=== PATIENT | male | born 1940 ===

== ENCOUNTER 2016-07-28 13:55 | Inpatient (IN) | payer MEDICARE, OTHER ==
[2016-07-28 13:58] VITALS: BMI 35.4
[2016-07-28] MEDS ORDERED: Sodium Chloride 0.9% 500 ML IV ONE (14:22)
[2016-07-28] MEDS ORDERED: Sodium Chloride 0.9% 1,000 ML ONE (14:29)
[2016-07-28 14:39] LABS: LYMPH # 0.7 K/uL (1.0-4.3); MEAN CORPUSCULAR HEMOGLOBIN 29.6 pg (27.0-31.0); MONO # 0.6 K/uL (0.0-0.8)
[2016-07-28 14:44] LABS: BASO % 0.4 % (0.0-2.0); EOS # 0.1 K/uL (0.0-0.7); EOS % 1.9 % (0.0-4.0); HEMATOCRIT 40.7 % (35.0-51.0); LYMPH % 9.5 % (20.0-40.0); MEAN CELL VOLUME 89.9 fL (80.0-94.0); MEAN PLATELET VOLUME 10.3 fL (7.2-11.7); MONO % 7.9 % (0.0-10.0); NRBC % 0.2 % (0.0-2.0); RED CELL DISTRIBUTION WIDTH 17.8 % (11.5-14.5); WHITE BLOOD COUNT 7.8 K/uL (4.8-10.8)
[2016-07-28 14:45] LABS: PLATELET COUNT 84 K/uL (130-400)
[2016-07-28 14:47] LABS: INR 1.1
[2016-07-28 14:53] LABS: RBC URINE 1864 /hpf (0-3); URINE BACTERIA RARE (<OCC); URINE BILIRUBIN NEGATIVE (NEGATIVE); URINE BLOOD 3+ (NEGATIVE); URINE COLOR Amber (YELLOW); URINE GLUCOSE (UA) 3+ mg/dL (Normal); URINE KETONE NEGATIVE (NEGATIVE); URINE LEUKOCYTE ESTERASE NEG Leu/uL (Negative); URINE PROTEIN 2+ mg/dL (NEGATIVE); URINE UROBILINOGEN NORMAL mg/dL (0.2-1.0); WBC URINE 10 /hpf (0-5)
[2016-07-28 14:55] LABS: POTASSIUM 4.7 mmol/L (3.6-5.2)
[2016-07-28 14:57] LABS: BILIRUBIN,TOTAL 1.2 mg/dL (0.2-1.3); TOTAL PROTEIN 6.5 g/dL (6.3-8.3)
[2016-07-28 15:18] LABS: TROPONIN I 0.04 ng/mL (0.00-0.120)
[2016-07-28 15:43] LABS: EOSINOPHIL 1 % (0-4); NEUTROPHIL 85 % (50-75); TOTAL CELLS COUNTED 100
--- NOTE | 2016-07-28 15:48 | CT ---
PROCEDURE: CT HEAD WITHOUT CONTRAST. HISTORY: Dizzy COMPARISON: None available. TECHNIQUE: Axial computed tomography images were obtained through the head/brain without intravenous contrast. Radiation dose: Total exam DLP = 788 mGy-cm. This CT exam was performed using one or more of the following dose reduction techniques: Automated exposure control, adjustment of the mA and/or kV according to patient size, and/or use of iterative reconstruction technique. FINDINGS: HEMORRHAGE: No intracranial hemorrhage. BRAIN: No mass effect or edema. No atrophy or chronic microvascular ischemic changes. VENTRICLES: Unremarkable. No hydrocephalus. CALVARIUM: Unremarkable. PARANASAL SINUSES: Unremarkable as visualized. No significant inflammatory changes. MASTOID AIR CELLS: Unremarkable as visualized. No inflammatory changes. OTHER FINDINGS: None. IMPRESSION: No intracranial hemorrhage.
--- NOTE | 2016-07-28 16:34 | CT ---
PROCEDURE: CT Abdomen and Pelvis without intravenous contrast HISTORY: Hematuria COMPARISON: None. TECHNIQUE: Technique. Contrast Dose: Radiation dose: Total exam DLP = 1153 mGy-cm. This CT exam was performed using one or more of the following dose reduction techniques: Automated exposure control, adjustment of the mA and/or kV according to patient size, and/or use of iterative reconstruction technique. FINDINGS: LOWER THORAX: Unremarkable. LIVER: Unremarkable. No gross lesion or ductal dilatation. GALLBLADDER AND BILE DUCTS: Unremarkable. PANCREAS: Unremarkable. No gross lesion or ductal dilatation. SPLEEN: Unremarkable. ADRENALS: Unremarkable. No mass. KIDNEYS AND URETERS: Unremarkable. No hydronephrosis. No solid mass. VASCULATURE: Unremarkable. No aortic aneurysm. BOWEL: Unremarkable. No obstruction. No gross mural thickening. APPENDIX: Unremarkable. Normal appendix. PERITONEUM: Unremarkable. No free fluid. No free air. LYMPH NODES: Unremarkable. No enlarged lymph nodes. BLADDER: Unremarkable. REPRODUCTIVE: Unremarkable. BONES: No acute fracture. OTHER FINDINGS: None. IMPRESSION: Unremarkable non contrast enhanced CT of the abdomen and pelvis.
--- NOTE | 2016-07-28 16:42 | C.PDOC ---
Time Seen by Provider: 07/28/16 14:09 Chief Complaint (Nursing): Dizziness/Lightheaded History Per: Patient, Family Onset/Duration Of Symptoms: Days Current Symptoms Are (Timing): Still Present Associated Symptoms Preceding Syncopal Episode: Lightheadedness Seizure Or Post-ictal Symptoms: None Possible Causative Factor(s): Decreased PO Intake (?) Fall Associated With With Symptoms: No Severity: Moderate Additional History Per: Prior Records - Symptoms Of CVA Recent Head Trauma: No Past Medical History Reviewed: Historical Data, Nursing Documentation, Vital Signs Vital Signs: Last Vital Signs Temp 98.1 F 07/28/16 13:59 Pulse 89 07/28/16 13:59 Resp 20 07/28/16 13:59 BP 113/80 07/28/16 13:59 Pulse Ox 97 07/28/16 13:59 - Medical History PMH: Bronchitis, HTN, Hypercholesterolemia, Chronic Kidney Disease Surgical History: CABG (1996(@[facility])), Cholecystectomy - [facility] Procedures COLONOSCOPY (11/06/11) DRAINAGE OF LEFT MIDDLE EAR WITH DRAIN DEV, OPEN APPROACH (03/03/16) OTHER ENDOSCOPY OF SM INTEST (10/16/11) Family History: States: Unknown Family Hx - Social History Hx Tobacco Use: No Hx Alcohol Use: No (stopped yrs ago) Hx Substance Use: No - Immunization History Hx Tetanus Toxoid Vaccination: Yes Hx Influenza Vaccination: Yes Hx Pneumococcal Vaccination: Yes Review Of Systems Except As Marked, All Systems Reviewed And Found Negative. Constitutional: Positive for: Malaise. Negative for: Fever Cardiovascular: Negative for: Chest Pain Respiratory: Negative for: Shortness of Breath Gastrointestinal: Positive for: Nausea, Abdominal Pain. Negative for: Vomiting , Diarrhea, Melena, Hematochezia, Hematemesis Genitourinary: Positive for: Frequency. Negative for: Scrotal Pain Musculoskeletal: Positive for: Leg Pain (b/l). Negative for: Neck Pain, Back Pain Skin: Positive for: Bruising Neurological: Positive for: Dizziness. Negative for: Weakness, Numbness, Seizures, Altered Mental Status, Headache Physical Exam - Physical Exam Appears: No Acute Distress, Chronically Ill Skin: Normal Color, Warm, Dry Head: Atraumatic, Normacephalic Eye(s): bilateral: PERRL, EOMI Neck: Normal ROM, Supple Cardiovascular: Rhythm Regular Respiratory: Normal Breath Sounds, No Accessory Muscle Use Gastrointestinal/Abdominal: Soft, Tenderness (mild epigastric), No Guarding, No Rebound Back: No CVA Tenderness Extremity: Normal ROM, No Pedal Edema Neurological/Psych: Oriented x3, Normal Speech, No Cerebellar Signs, Normal Motor, Normal Sensation ED Course And Treatment - Laboratory Results Result Diagrams: 07/28/16 14:35 07/28/16 14:35 Lab Interpretation: Abnormal Interpretation Of Abnormal: Thrombocytopenia. Hematuria. Worsening renal function. ECG: Interpreted By Me, Viewed By Me ECG Rhythm: Sinus Rhythm, Nonspecific Changes Rate From EC O2 Sat by Pulse Oximetry: 97 Pulse Ox Interpretation: Normal - CT Scan/US CT head Other Rad Studies (CT/US): Read By Radiologist, Radiology Report Reviewed CT/US Interpretation: IMPRESSION: No intracranial hemorrhage. CT abd/pelv Other Rad Studies (CT/US): Read By Radiologist, Radiology Report Reviewed CT/US Interpretation: IMPRESSION: Unremarkable non contrast enhanced CT of the abdomen and pelvis. Progress - Interventions Interventions:: Observation, Intravenous fluid - Data Reviewed Data Reviewed: Lab, Diagnostic imaging, EKG, Old records - Patient Status Patient status: Partially improved - Continuity of Care Discussed patient case with:: Patient, Family-HIPPA compliant, ED Nurse, PMD - Patient Plan Patient Plan: Admission Disposition Discussed With : Ricky Peralta Comment: He accepted pt on his service. Doctor Will See Patient In The: Hospital Counseled Patient/Family Regarding: Studies Performed, Diagnosis - Disposition Disposition: HOSPITALIZED Disposition Time: 16:45 Condition: FAIR Instructions: Weakness (ED) - POA Present On Arrival: Poor Glycemic Control - Clinical Impression Clinical Impression: Generalized weakness, Dizziness, Worsening renal function, Hematuria, Thrombocytopenia
[2016-07-28] MEDS: (Novolog) Insulin Aspart, Recombinant 100 u/ml 10 ml vial SC SCH (22:37)
[2016-07-29 08:19] LABS: BASO % 0.4 % (0.0-2.0); EOS # 0.2 K/uL (0.0-0.7); HEMATOCRIT 36.3 % (35.0-51.0); LYMPH # 1.2 K/uL (1.0-4.3); LYMPH % 19.8 % (20.0-40.0); MEAN CELL VOLUME 90.5 fL (80.0-94.0); MEAN CORPUSCULAR HEMOGLOBIN 29.8 pg (27.0-31.0); MEAN CORPUSCULAR HGB CONC 32.9 g/dL (33.0-37.0); MEAN PLATELET VOLUME 10.6 fL (7.2-11.7); MONO # 0.6 K/uL (0.0-0.8); MONO % 10.4 % (0.0-10.0); RED CELL DISTRIBUTION WIDTH 17.6 % (11.5-14.5)
[2016-07-29] MEDS: (Novolog) Insulin Aspart, Recombinant 100 u/ml 10 ml vial SC SCH ×4 (08:29→22:15)
[2016-07-29 08:39] LABS: POTASSIUM 4.6 mmol/L (3.6-5.2)
[2016-07-29 08:42] LABS: CALCIUM 7.7 mg/dl (8.6-10.4); TOTAL PROTEIN 5.8 g/dL (6.3-8.3)
--- NOTE | 2016-07-29 10:43 | CP.PCM.PN ---
Subjective - Date & Time of Evaluation Date of Evaluation: 07/29/16 Time of Evaluation: 09:00 - Subjective Subjective: PGY2 on medicine Dr. Peralta service: Pt seen and examined at bedside this morning. Pt said he is still feeling weak but no other complaints at this time. Tolerating PO diet. No acute events overnight per RN. Objective - Vital Signs/Intake and Output Vital Signs (last 24 hours): Temp Pulse Resp BP Pulse Ox 99.4 F 92 H 20 126/72 96 07/29/16 00:00 07/29/16 00:00 07/29/16 00:00 07/29/16 09:19 07/29/16 00:00 Intake and Output: 07/29/16 07/29/16 06:59 18:59 Intake Total 300 Balance 300 - Medications Medications: Current Medications Carvedilol (Coreg) 25 mg PO BID [facility] Last Admin: 07/29/16 09:19 Dose: 25 mg Clopidogrel Bisulfate (Plavix) 75 mg PO DAILY [facility] Last Admin: 07/29/16 09:21 Dose: 75 mg Doxazosin Mesylate (Cardura) 4 mg PO DAILY [facility] Last Admin: 07/29/16 09:18 Dose: 4 mg Famotidine (Pepcid) 20 mg PO DAILY [facility] Last Admin: 07/29/16 09:20 Dose: 20 mg Gabapentin (Neurontin) 600 mg PO DAILY [facility] Last Admin: 07/29/16 09:20 Dose: 600 mg Insulin Aspart (Novolog) 0 unit SC [facility] PRN Reason: Protocol Insulin Glargine (Lantus) 15 unit SC [facility] Prednisone (Prednisone Tab) 30 mg PO DAILY [facility] Stop: 07/31/16 23:00 Prednisone (Prednisone Tab) 10 mg PO DAILY [facility] Stop: 08/03/16 23:00 - Labs Labs: 07/29/16 08:11 07/29/16 08:11 PT 12.7 SECONDS (9.7-12.2) H 07/28/16 14:35 INR 1.1 07/28/16 14:35 APTT 29 SECONDS (21-34) 07/28/16 14:35 - Constitutional Appears: Non-toxic, No Acute Distress - Head Exam Head Exam: NORMAL INSPECTION, NORMOCEPHALIC - Eye Exam Eye Exam: Normal appearance Pupil Exam: NORMAL ACCOMODATION - Respiratory Exam Respiratory Exam: Clear to Ausculation Bilateral, NORMAL BREATHING PATTERN. absent: Rhonchi, Wheezes - Cardiovascular Exam Cardiovascular Exam: REGULAR RHYTHM, +S1, +S2. absent: Gallop, Rubs - GI/Abdominal Exam GI & Abdominal Exam: Soft, Normal Bowel Sounds - Neurological Exam Neurological Exam: Alert, Awake, Oriented x3 Assessment and Plan - Assessment and Plan (Free Text) Assessment: Acute on chronic kidney injuries BUN and Cr 49 and 4.4 Pt has hx of brief dialysis in the past. Nephro Dr. Santos consulted, help appreciated. Prednisone taper, 20mg tomorrow and Wednesday, and 10mg Wednesday and Wednesday. F/U ESR and CRP. Hematuria See above. Weakness Head and abdomen CT negative. Hx of CAD Coreg 25mg PO daily. Plavix 75mg PO daily. Cardura 4mg PO daily Crestor 5mg PO HS. Cozaar 50mg PO daily. DM Home Actos stopped. Start Lantus 15U SC HS. RISS, accuchecks. Neurontin 600mg PO daily. Prophylactic measure SCD, Pepcid. PT eval. Management as per Dr. Peralta
--- NOTE | 2016-07-29 17:19 | CP.PCM.CON ---
History of Present Illness - History of Present Illness History of Present Illness: 76 y/o male with Hx/o CKD, CAD/CABG, DM, HTN ,HLD is aditted for weakness & dizziness. Renal consult is requested for evaluation of CKD Pt was admitted @ [facility] in Apr 2016. His creat on that adm was 3.0 Hx is obtained from Pt & family. Pt is followed by [employer] [facility] in [place] & at one time had required dialysis transiently Pt gives Hx/o kidney dis in several family members Past Patient History - Past Medical History & Family History Past Medical History?: Yes - Past Social History Smoking Status: Former Smoker - CARDIAC Hx Hypercholesterolemia: Yes Hx Hypertension: Yes - PULMONARY Hx Bronchitis: Yes - NEUROLOGICAL Hx Paralysis: No Other/Comment: neuropathy - HEENT Hx Cataracts: Yes (B/L x 5 yrs ago) Other/Comment: chronic L ear pain - RENAL Hx Chronic Kidney Disease: Yes - ENDOCRINE/METABOLIC Hx Endocrine Disorders: Yes Hx Diabetes Mellitus Type 2: Yes - HEMATOLOGICAL/ONCOLOGICAL Hx Blood Disorders: Yes Hx Anemia: Yes - INTEGUMENTARY Hx Dermatological Problems: Yes Other/Comment: vetiligo both hands,christofer. elbows,both shins - MUSCULOSKELETAL/RHEUMATOLOGICAL Hx Musculoskeletal Disorders: Yes Hx Falls: No - GASTROINTESTINAL Hx Gastrointestinal Disorders: Yes Hx Gall Bladder Disease: Yes Hx Ulcer: Yes - PSYCHIATRIC Hx Substance Use: No - SURGICAL HISTORY Hx Cataract Extraction: Yes (5 yrs) Hx Cholecystectomy: Yes Hx Coronary Artery Bypass Graft: Yes (1996(@[facility] - ANESTHESIA Hx Anesthesia: Yes Hx Anesthesia Reactions: No Hx Malignant Hyperthermia: No Meds Allergies/Adverse Reactions: Allergies Allergy/AdvReac Type Severity Reaction Status Date / Time chicken derived AdvReac VOMITING Verified 03/03/16 22:07 - Medications Medications: Current Medications Carvedilol (Coreg) 25 mg PO BID [facility] Last Admin: 07/29/16 09:19 Dose: 25 mg Clopidogrel Bisulfate (Plavix) 75 mg PO DAILY [facility] Last Admin: 07/29/16 09:21 Dose: 75 mg Doxazosin Mesylate (Cardura) 4 mg PO DAILY [facility] Last Admin: 07/29/16 09:18 Dose: 4 mg Famotidine (Pepcid) 20 mg PO DAILY [facility] Last Admin: 07/29/16 09:20 Dose: 20 mg Gabapentin (Neurontin) 600 mg PO DAILY [facility] Last Admin: 07/29/16 09:20 Dose: 600 mg Insulin Aspart (Novolog) 0 unit SC [facility] PRN Reason: Protocol Last Admin: 07/29/16 11:36 Dose: 8 unit Insulin Glargine (Lantus) 15 unit SC [facility] Prednisone (Prednisone Tab) 30 mg PO DAILY [facility] Stop: 07/31/16 23:00 Prednisone (Prednisone Tab) 10 mg PO DAILY [facility] Stop: 08/03/16 23:00 Physical Exam - Constitutional Appears: No Acute Distress - Head Exam Head Exam: ATRAUMATIC, NORMOCEPHALIC - Eye Exam Additional comments: No icterus - ENT Exam ENT Exam: Mucous Membranes Moist - Respiratory Exam Additional comments: Lungs clear - Cardiovascular Exam Cardiovascular Exam: REGULAR RHYTHM Additional comments: No rub or gallop - GI/Abdominal Exam GI & Abdominal Exam: Soft Additional comments: Subjective mid abdominal tenderness. No guarding - Rectal Exam Rectal Exam: Deferred - Extremities Exam Additional comments: No edema or cyanosis Results - Vital Signs Recent Vital Signs: Last Vital Signs Temp 97.6 F 07/29/16 15:00 Pulse 68 07/29/16 15:00 Resp 20 07/29/16 15:00 BP 151/89 H 07/29/16 15:00 Pulse Ox 96 07/29/16 15:00 - Labs Result Diagrams: 07/29/16 08:11 07/29/16 08:11 Labs: Laboratory Results - last 24 hr 07/28/16 07/28/16 07/29/16 18:37 21:09 07:12 WBC RBC Hgb Hct MCV MCH MCHC RDW Plt Count MPV Neut % (Auto) Lymph % (Auto) [place] % (Auto) Eos % (Auto) Baso % (Auto) Neut # Lymph # [place] # Eos # Baso # ESR Sodium Potassium Chloride Carbon Dioxide Anion Gap BUN Creatinine Est GFR ( Amer) Est GFR (Non-Af Amer) POC Glucose (mg/dL) 222 H 253 H 254 H Random Glucose Calcium Total Bilirubin AST ALT Alkaline Phosphatase C-React Prot High Sens Total Protein Albumin Globulin Albumin/Globulin Ratio 07/29/16 07/29/16 07/29/16 08:11 08:11 11:13 WBC 6.0 RBC 4.01 L Hgb 12.0 Hct 36.3 MCV 90.5 MCH 29.8 MCHC 32.9 L RDW 17.6 H Plt Count 80 L MPV 10.6 Neut % (Auto) 66.4 Lymph % (Auto) 19.8 L [place] % (Auto) 10.4 H Eos % (Auto) 3.0 Baso % (Auto) 0.4 Neut # 4.0 Lymph # 1.2 [place] # 0.6 Eos # 0.2 Baso # 0.0 ESR 40 H Sodium 134 Potassium 4.6 Chloride 107 Carbon Dioxide 18 L Anion Gap 14 BUN 49 H Creatinine 4.4 H Est GFR ( Amer) 16 Est GFR (Non-Af Amer) 13 POC Glucose (mg/dL) 330 H Random Glucose 223 H Calcium 7.7 L Total Bilirubin 1.0 AST 18 ALT 11 L D Alkaline Phosphatase 61 C-React Prot High Sens Total Protein 5.8 L Albumin 2.9 L Globulin 3.0 Albumin/Globulin Ratio 1.0 07/29/16 07/29/16 13:45 16:03 WBC RBC Hgb Hct MCV MCH MCHC RDW Plt Count MPV Neut % (Auto) Lymph % (Auto) [place] % (Auto) Eos % (Auto) Baso % (Auto) Neut # Lymph # [place] # Eos # Baso # ESR Sodium Potassium Chloride Carbon Dioxide Anion Gap BUN Creatinine Est GFR ( Amer) Est GFR (Non-Af Amer) POC Glucose (mg/dL) 331 H Random Glucose Calcium Total Bilirubin AST ALT Alkaline Phosphatase C-React Prot High Sens > 15.00 H Total Protein Albumin Globulin Albumin/Globulin Ratio Assessment & Plan - Assessment and Plan (Free Text) Assessment: Acute on chronic renal failure. Etiology unclear at this time. No documentation of hypotensive episode Hematuria HTN CAD DM Plan: Repeat UA Urine prot/creat Renal US Monitor urine output
--- NOTE | 2016-07-29 19:07 | US ---
PROCEDURE: Ultrasound of the Kidneys HISTORY: CKD COMPARISON: None available. TECHNIQUE: Sonogram of the kidneys. FINDINGS: RIGHT KIDNEY: Measures: 5.3 x 11.1 cm. Normal in size, contour and echogenicity. No stone, solid mass lesion or hydronephrosis visualized. LEFT KIDNEY: Measures: 5.9 x 11.7 cm. Normal in size, contour and echogenicity. No stone, solid mass lesion or hydronephrosis visualized. OTHER FINDINGS: None. IMPRESSION: Unremarkable renal sonogram.
[2016-07-29] MEDS ORDERED: (Lantus) Insulin Glargine, Recombinant SC SCH (22:00)
--- NOTE | 2016-07-30 07:03 | HP ---
A 76-year-old male, history of diabetes, hypertension, coronary artery disease, chronic renal failure , admitted to hospital chief complaint ____ fatigue, tiredness, weakness, leg pain, failure to thrive . The patient came to the Emergency Room ____ BUN and creatinine ____ at his baseline. ____ worseni ng renal failure. PHYSICAL EXAMINATION: GENERAL: The patient IS awake, alert, oriented. VITAL SIGNS: Temperature 98, pulse 90. HEENT: Within normal limits. NECK: Supple. CHEST: Symmetrical. HEART: Regular. ABDOMEN: Soft. EXTREMITIES: No edema. Patient ____ renal failure worsening, diabetes, hypertension, coronary artery disease, ____, possible temporal arteritis. The patient gets supportive care. Renal evaluation, insulin adjustment for iván betes uncontrolled. Ricky Rosa MD cc: [id number] TT: 07/29/2016 11:51:07 07/29/2016 13:25:05
[2016-07-30 08:02] LABS: BASO % 0.2 % (0.0-2.0); HEMATOCRIT 37.5 % (35.0-51.0); LYMPH # 0.8 K/uL (1.0-4.3); LYMPH % 9.2 % (20.0-40.0); MEAN CELL VOLUME 90.8 fL (80.0-94.0); MEAN CORPUSCULAR HEMOGLOBIN 29.5 pg (27.0-31.0); MEAN CORPUSCULAR HGB CONC 32.5 g/dL (33.0-37.0); MEAN PLATELET VOLUME 10.5 fL (7.2-11.7); MONO # 0.5 K/uL (0.0-0.8); MONO % 5.8 % (0.0-10.0); PLATELET COUNT 83 K/uL (130-400); RED CELL DISTRIBUTION WIDTH 17.2 % (11.5-14.5); WHITE BLOOD COUNT 8.6 K/uL (4.8-10.8)
[2016-07-30 08:08] LABS: RBC URINE 8 /hpf (0-3); URINE BACTERIA OCC (<OCC); URINE BILIRUBIN NEGATIVE (NEGATIVE); URINE BLOOD 2+ (NEGATIVE); URINE COLOR Straw (YELLOW); URINE GLUCOSE (UA) 3+ mg/dL (Normal); URINE KETONE NEGATIVE (NEGATIVE); URINE LEUKOCYTE ESTERASE NEG Leu/uL (Negative); URINE PROTEIN NEGATIVE (NEGATIVE); URINE UROBILINOGEN NORMAL mg/dL (0.2-1.0); WBC URINE 3 /hpf (0-5)
[2016-07-30] MEDS: (Novolog) Insulin Aspart, Recombinant 100 u/ml 10 ml vial SC SCH ×3 (08:08→21:26)
[2016-07-30 08:15] LABS: BILIRUBIN,TOTAL 0.6 mg/dL (0.2-1.3); CALCIUM 8.1 mg/dl (8.6-10.4); TOTAL PROTEIN 6.2 g/dL (6.3-8.3)
[2016-07-30 08:34] LABS: POTASSIUM 5.7 mmol/L (3.6-5.2)
[2016-07-30 09:27] LABS: NEUTROPHIL 93 % (50-75); TOTAL CELLS COUNTED 100
[2016-07-30] MEDS ORDERED: Sod Polystyrene Sulf 15 gm/60 ml Oral Susp PO ONE (09:30)
[2016-07-30 09:35] LABS: CREATININE, RANDOM URINE 48.9 mg/dL
--- NOTE | 2016-07-30 10:28 | CP.PCM.PN ---
Subjective - Date & Time of Evaluation Date of Evaluation: 07/30/16 Time of Evaluation: 09:00 - Subjective Subjective: PGY2 on medicine Dr. Peralta service: Pt seen and examined at bedside this morning. Pt reports feeling stronger but had watery diarrhea twice overnight. Pt also complains bilateral ear pain. No other acute events overnight per RN. Objective - Vital Signs/Intake and Output Vital Signs (last 24 hours): Temp Pulse Resp BP Pulse Ox 97 F L 72 20 158/78 H 97 07/30/16 07:55 07/30/16 07:55 07/30/16 07:55 07/30/16 10:06 07/30/16 07:55 Intake and Output: 07/30/16 07/30/16 06:59 18:59 Intake Total 400 Balance 400 - Medications Medications: Current Medications Carvedilol (Coreg) 25 mg PO BID [facility] Last Admin: 07/30/16 10:06 Dose: 25 mg Clopidogrel Bisulfate (Plavix) 75 mg PO DAILY [facility] Last Admin: 07/30/16 10:07 Dose: 75 mg Doxazosin Mesylate (Cardura) 4 mg PO DAILY [facility] Last Admin: 07/30/16 10:09 Dose: 4 mg Famotidine (Pepcid) 20 mg PO DAILY [facility] Last Admin: 07/30/16 10:07 Dose: 20 mg Gabapentin (Neurontin) 600 mg PO DAILY [facility] Last Admin: 07/30/16 10:06 Dose: 600 mg Insulin Aspart (Novolog) 0 unit SC [facility] PRN Reason: Protocol Last Admin: 07/30/16 08:08 Dose: 12 unit Insulin Glargine (Lantus) 20 unit SC [facility] Prednisone (Prednisone Tab) 30 mg PO DAILY [facility] Stop: 07/31/16 23:00 Last Admin: 07/30/16 10:06 Dose: 30 mg Prednisone (Prednisone Tab) 10 mg PO DAILY [facility] Stop: 08/03/16 23:00 - Labs Labs: 07/30/16 07:53 07/30/16 07:53 PT 12.7 SECONDS (9.7-12.2) H 07/28/16 14:35 INR 1.1 07/28/16 14:35 APTT 29 SECONDS (21-34) 07/28/16 14:35 - Constitutional Appears: Non-toxic, No Acute Distress - Head Exam Head Exam: NORMAL INSPECTION, NORMOCEPHALIC - Eye Exam Eye Exam: Normal appearance Pupil Exam: NORMAL ACCOMODATION - Respiratory Exam Respiratory Exam: Clear to Ausculation Bilateral, NORMAL BREATHING PATTERN. absent: Rhonchi, Wheezes - Cardiovascular Exam Cardiovascular Exam: REGULAR RHYTHM, +S1, +S2. absent: Gallop, Rubs - GI/Abdominal Exam GI & Abdominal Exam: Soft, Normal Bowel Sounds. absent: Tenderness - Neurological Exam Neurological Exam: Alert, Awake, Oriented x3 - Psychiatric Exam Psychiatric exam: Normal Mood - Skin Skin Exam: Intact Assessment and Plan - Assessment and Plan (Free Text) Assessment: Acute on chronic kidney injuries Worsening BUN and Cr 61 and 4.4 Pt has hx of brief dialysis in the past. Nephro Dr. Santos consulted, help appreciated. Prednisone taper, 20mg tomorrow and Wednesday, and 10mg Wednesday and Wednesday. Renal ultrasound negative. ESR 40, CRP >15. F/U renal workup. Hematuria See above. Weakness Head and abdomen CT negative. Hx of CAD Coreg 25mg PO daily. Plavix 75mg PO daily. Cardura 4mg PO daily Crestor 5mg PO HS. Cozaar 50mg PO daily. DM Home Actos stopped. Increase Lantus 20U SC HS due to hyperglycemia. RISS, accuchecks. Neurontin 600mg PO daily. Ear pain Pt has history of left mastoiditis, s/p tube placement in 02/2016. Dr. Stark consulted, help appreciated. Prophylactic measure SCD, Pepcid. PT eval. Management as per Dr. Peralta
--- NOTE | 2016-07-30 13:10 | CON ---
DATE: 07/30/2016 REASON FOR CONSULTATION: Hearing loss. HISTORY OF PRESENT ILLNESS: This is a 76-year-old male status post left myringotomy with tube who co mplained of hearing loss off and on in the ears for a few months. It is mild to moderate in intensit y. PAST MEDICAL HISTORY: As noted in the chart by me. MEDICATIONS: As noted in the chart by me. PHYSICAL EXAMINATION: HEAD: Atraumatic, normocephalic. FACE: Good facial movements bilaterally. CONSTITUTIONAL: Well-developed, well-nourished. COMMUNICATION: Communicates very appropriately. EXTERNAL NOSE AND EARS: No masses, no lesions, no erythema, no edema. INTERNAL NOSE: Deviated septum, no masses, no lesions, no erythema, no edema. ORAL CAVITY, OROPHARYNX: No masses, no lesions, no erythema, no edema. LIPS AND GUMS: No masses, no lesions, no erythema, no edema. EARS: Fluid noted behind TMs on both sides. NECK: Supple. THYROID: No thyromegaly, no goiter. LYMPH NODES: No lymphadenopathy of the neck. ASSESSMENT: 1. Otitis media. 2. Deviated septum. PLAN: The patient should be placed on antibiotics as outpatient and follow up as an outpatient in my office. Anderson Stark MD cc: [id number] TT: 07/30/2016 13:10:05 Confirmation # [id number] Dictation # [id number]
[2016-07-30] MEDS: Lactobacillus Acidophilus 500 MU Cap PO SCH ×2 (15:00→18:00)
[2016-07-30] MEDS: Amoxicillin-Clav 875-125 mg Tab PO SCH (17:00)
[2016-07-30] MEDS: (Lantus) Insulin Glargine, Recombinant SC SCH (21:27)
[2016-07-30 23:28] VITALS: RESP 20
[2016-07-31] MEDS: Sodium Chloride 0.9% 1,000 ML IV SCH (00:30)
[2016-07-31 07:11] LABS: BASO % 0.2 % (0.0-2.0); HEMATOCRIT 35.2 % (35.0-51.0); MEAN CELL VOLUME 90.5 fL (80.0-94.0); MEAN CORPUSCULAR HEMOGLOBIN 29.7 pg (27.0-31.0); MEAN CORPUSCULAR HGB CONC 32.8 g/dL (33.0-37.0); MEAN PLATELET VOLUME 10.8 fL (7.2-11.7); MONO # 0.4 K/uL (0.0-0.8); MONO % 4.4 % (0.0-10.0); WHITE BLOOD COUNT 10.1 K/uL (4.8-10.8)
[2016-07-31] MEDS: (Novolog) Insulin Aspart, Recombinant 100 u/ml 10 ml vial SC SCH ×5 (07:30→22:22)
[2016-07-31 07:39] LABS: POTASSIUM 5.7 mmol/L (3.6-5.2)
[2016-07-31 07:40] LABS: ALB/GLOB RATIO 0.9 (1.0-2.1); BILIRUBIN,TOTAL 0.6 mg/dL (0.2-1.3); TOTAL PROTEIN 6.1 g/dL (6.3-8.3)
[2016-07-31 07:41] LABS: CALCIUM 8.3 mg/dl (8.6-10.4)
[2016-07-31] MEDS ORDERED: Sod Polystyrene Sulf 15 gm/60 ml Oral Susp PO ONE ×2 (07:58→10:07)
[2016-07-31] MEDS: Amoxicillin-Clav 875-125 mg Tab PO SCH (08:10)
[2016-07-31 08:15] LABS: CHLORIDE URINE 58 mmol/L (32-290)
--- NOTE | 2016-07-31 09:30 | CP.PCM.PN ---
Subjective - Date & Time of Evaluation Date of Evaluation: 07/31/16 Time of Evaluation: 07:05 - Subjective Subjective: Medicine Note- Dr. Peralta's service Patient was seen and examined at bedside. Patient reports no acute complaints at this time. No events overnight, per nursing. Objective - Vital Signs/Intake and Output Vital Signs (last 24 hours): Temp Pulse Resp BP Pulse Ox 97.9 F 66 20 179/99 H 100 07/31/16 07:55 07/31/16 07:55 07/31/16 07:55 07/31/16 07:55 07/31/16 07:55 Intake and Output: 07/31/16 07/31/16 06:59 18:59 Intake Total 1900 Balance 1900 - Medications Medications: Current Medications Amoxicillin/Clavulanate Potassium (Augmentin 875 Mg-125 Mg Tab) [facility] Last Admin: 07/30/16 17:00 Dose: 1 tab Carvedilol (Coreg) 25 mg PO BID [facility] Last Admin: 07/30/16 17:49 Dose: 25 mg Clopidogrel Bisulfate (Plavix) 75 mg PO DAILY [facility] Last Admin: 07/30/16 10:07 Dose: 75 mg Doxazosin Mesylate (Cardura) 4 mg PO DAILY [facility] Last Admin: 07/30/16 10:09 Dose: 4 mg Famotidine (Pepcid) 20 mg PO DAILY [facility] Last Admin: 07/30/16 10:07 Dose: 20 mg Gabapentin (Neurontin) 600 mg PO DAILY [facility] Last Admin: 07/30/16 10:06 Dose: 600 mg Sodium Chloride (Sodium Chloride 0.9%) 1,000 mls @ 80 mls/hr IV .[id number] [facility] Last Admin: 07/31/16 00:30 Dose: Not Given Insulin Aspart (Novolog) 0 unit SC ACHS [facility] PRN Reason: Protocol Last Admin: 07/30/16 21:26 Dose: 3 unit Insulin Glargine (Lantus) 20 unit SC HS [facility] Last Admin: 07/30/16 21:27 Dose: 20 units Lactobacillus Acidophilus (Bacid Acidophilus) 1 cap PO BID [facility] Last Admin: 07/30/16 18:00 Dose: 1 cap Prednisone (Prednisone Tab) 20 mg PO DAILY [facility] PRN Reason: Taper Stop: 08/04/16 09:59 - Labs Labs: 07/31/16 07:03 07/31/16 07:03 PT 12.7 SECONDS (9.7-12.2) H 07/28/16 14:35 INR 1.1 07/28/16 14:35 APTT 29 SECONDS (21-34) 07/28/16 14:35 - Constitutional Appears: Non-toxic, No Acute Distress - Head Exam Head Exam: ATRAUMATIC, NORMAL INSPECTION, NORMOCEPHALIC - Eye Exam Pupil Exam: NORMAL ACCOMODATION - ENT Exam ENT Exam: Mucous Membranes Moist - Respiratory Exam Respiratory Exam: Clear to Ausculation Bilateral, NORMAL BREATHING PATTERN. absent: Prolonged Expiratory Phase, Rales, Rhonchi, Wheezes - Cardiovascular Exam Cardiovascular Exam: REGULAR RHYTHM, +S1, +S2 - GI/Abdominal Exam GI & Abdominal Exam: Soft, Normal Bowel Sounds. absent: Tenderness, Diminished Bowel Sounds, Hernia, Hypoactive Bowel Sounds - Extremities Exam Extremities Exam: Normal Capillary Refill - Neurological Exam Neurological Exam: Alert, Awake, Oriented x3 - Psychiatric Exam Psychiatric exam: Normal Affect, Normal Mood - Skin Skin Exam: Dry, Intact, Normal Color, Warm Assessment and Plan - Assessment and Plan (Free Text) Assessment: Acute on chronic kidney insufficiency Worsening BUN and Cr 61 and 4.4 Pt has hx of brief dialysis in the past. Nephro Dr. Santos consulted, help appreciated. Prednisone taper, 20mg tomorrow and Wednesday, and 10mg Wednesday and Wednesday. Renal ultrasound negative. ESR 40, CRP >15. Urine Random Sodium- 83 Urine Chloride- 58 Hematuria See above. Weakness Head and abdomen CT negative. Hx of CAD Coreg 25mg PO daily. Plavix 75mg PO daily. Cardura 4mg PO daily Crestor 5mg PO HS. Cozaar 50mg PO daily. DM Home Actos stopped. Increase Lantus 20U SC HS due to hyperglycemia. RISS, accuchecks. Neurontin 600mg PO daily. Otitis Media Pt has history of left mastoiditis, s/p tube placement in 02/2016. Dr. Stark consulted, help appreciated. Continue Augmentin 875-125mg PO Q12h (started on 07/30/16) Started on Lactobacillus 1 cap PO BID Prophylactic measure SCD, Pepcid. PT eval. Management as per Dr. Peralta
[2016-07-31] MEDS: Lactobacillus Acidophilus 500 MU Cap PO SCH ×2 (10:09→17:43)
--- NOTE | 2016-07-31 12:03 | CP.PCM.PN ---
Subjective - Date & Time of Evaluation Date of Evaluation: 07/30/16 Time of Evaluation: 11:00 - Subjective Subjective: Pt was seen yesterdy & evaluated Was unable to write note because computors were down. Came back @ 2 pm. Computors were still down Objective - Vital Signs/Intake and Output Vital Signs (last 24 hours): Temp Pulse Resp BP Pulse Ox 97.9 F 66 20 179/99 H 100 07/31/16 07:55 07/31/16 07:55 07/31/16 07:55 07/31/16 10:01 07/31/16 07:55 Intake and Output: 07/31/16 07/31/16 06:59 18:59 Intake Total 1900 Balance 1900 - Medications Medications: Current Medications Amlodipine Besylate (Norvasc) 5 mg PO DAILY [facility] Last Admin: 07/31/16 11:55 Dose: 5 mg Amoxicillin/Clavulanate Potassium (Augmentin 500 Mg-125 Mg Tab) 1 tab PO Q12H [facility] Carvedilol (Coreg) 25 mg PO BID [facility] Last Admin: 07/31/16 10:01 Dose: 25 mg Clopidogrel Bisulfate (Plavix) 75 mg PO DAILY [facility] Last Admin: 07/31/16 10:02 Dose: 75 mg Doxazosin Mesylate (Cardura) 4 mg PO DAILY [facility] Last Admin: 07/31/16 10:02 Dose: 4 mg Famotidine (Pepcid) 20 mg PO DAILY [facility] Last Admin: 07/31/16 10:09 Dose: 20 mg Gabapentin (Neurontin) 600 mg PO TID [facility] Sodium Chloride (Sodium Chloride 0.9%) 1,000 mls @ 80 mls/hr IV .[id number] [facility] Last Admin: 07/31/16 00:30 Dose: Not Given Insulin Aspart (Novolog) 0 unit SC ACHS [facility] PRN Reason: Protocol Last Admin: 07/31/16 11:52 Dose: 10 unit Insulin Glargine (Lantus) 20 unit SC HS [facility] Last Admin: 07/30/16 21:27 Dose: 20 units Lactobacillus Acidophilus (Bacid Acidophilus) 1 cap PO BID [facility] Last Admin: 07/31/16 10:09 Dose: 1 cap Prednisone (Prednisone Tab) 20 mg PO DAILY [facility] PRN Reason: Taper Stop: 08/04/16 09:59 Last Admin: 07/31/16 10:15 Dose: 20 mg Sodium Bicarbonate (Sodium Bicarbonate Tab) 650 mg PO TID [facility] - Labs Labs: 07/31/16 07:03 07/31/16 07:03 PT 12.7 SECONDS (9.7-12.2) H 07/28/16 14:35 INR 1.1 07/28/16 14:35 APTT 29 SECONDS (21-34) 07/28/16 14:35 - Respiratory Exam Additional comments: Lungs clear - Cardiovascular Exam Cardiovascular Exam: REGULAR RHYTHM - Extremities Exam Additional comments: No edema Assessment and Plan - Assessment and Plan (Free Text) Assessment: CKD stage 1V . with acute excacerbation ma be sec to dehydration Presyncope HTN Plan: Renal US report reviewed. Kidneys are unremarkable Suggest gentle hydration K+ controleed on 07/30/16
--- NOTE | 2016-07-31 12:04 | CP.PCM.PN ---
Subjective - Date & Time of Evaluation Date of Evaluation: 07/31/16 Time of Evaluation: 12:00 - Subjective Subjective: Follow up Nephrology note Assessment NOn oliguric CHARLEE ? hemodynamic due to BP changes, pre-renal. also to r/o ANCA vasculitis considering hematuria, sinusitis/otitis media and renal disease, vague symptoms CKD stage 3/4 ? due to CHARLEE in past with <1 gram proteinuria (baseline cr 2.4- 3.2 since feb 2016) HTN uncontrolled DM with hyperglycemia. on prednisone for concern of temporal arteritis Anemia, thrombocytopenia Mild hyponatremia, hyperkalemia (likely precipitated by hyperglycemia), NAGMA Plan No acute need for renal replacement therapy will start norvasc 5 mg and add sodium bicarb. not on ACEI/ARB due to CHARLEE, hyperkalemia. Glycemic control. d/c IVF once sugar control better low K diet check GN work up with c3/c4, ROBERT/ANCA and as ordered. anemia work up, iron indices, vit d/PTH avoid nephrotoxins/contrast/NSAIDs. dose meds for reduced GFR ~ 20 avoid magnesium based laxatives/fleet enema thank for consult Please call if any Q Dr Ronen Everett [phone] Subjective: doesn't feel good. denies CP/SOB/nausea/vomitting. had blood in urine earlier, now resolved. feels decreased appetite, gen body aches and fatigue. had sinusitis and otitis media hx of DM, HTN x 2006, was on dialysis at that time for short period. he is not aware about cause of kidney disease denies smoking/drugs/etoh Exam: comfortable, not in acute distress BP elevated CVS: s1s2 normal. no murmur Respi: b/l clear vbs+ Abdomen: soft non tender no organomegaly bs+ Ext: no edema skin: vitiligo changes. no rash Psych: pleasant, coperative ; kidney, bladder not palpable work up: sono renal: unremarkable urine pr/cr <1 gram/day with blood RBC+ high glucose Objective - Vital Signs/Intake and Output Vital Signs (last 24 hours): Temp Pulse Resp BP Pulse Ox 97.9 F 66 20 179/99 H 100 07/31/16 07:55 07/31/16 07:55 07/31/16 07:55 07/31/16 10:01 07/31/16 07:55 Intake and Output: 07/31/16 07/31/16 06:59 18:59 Intake Total 1900 Balance 1900 - Medications Medications: Current Medications Amlodipine Besylate (Norvasc) 5 mg PO DAILY [facility] Last Admin: 07/31/16 11:55 Dose: 5 mg Amoxicillin/Clavulanate Potassium (Augmentin 500 Mg-125 Mg Tab) 1 tab PO Q12H [facility] Carvedilol (Coreg) 25 mg PO BID [facility] Last Admin: 07/31/16 10:01 Dose: 25 mg Clopidogrel Bisulfate (Plavix) 75 mg PO DAILY [facility] Last Admin: 07/31/16 10:02 Dose: 75 mg Doxazosin Mesylate (Cardura) 4 mg PO DAILY [facility] Last Admin: 07/31/16 10:02 Dose: 4 mg Famotidine (Pepcid) 20 mg PO DAILY [facility] Last Admin: 07/31/16 10:09 Dose: 20 mg Gabapentin (Neurontin) 600 mg PO TID [facility] Sodium Chloride (Sodium Chloride 0.9%) 1,000 mls @ 80 mls/hr IV .[id number] [facility] Last Admin: 07/31/16 00:30 Dose: Not Given Insulin Aspart (Novolog) 0 unit SC ACHS [facility] PRN Reason: Protocol Last Admin: 07/31/16 11:52 Dose: 10 unit Insulin Glargine (Lantus) 20 unit SC HS [facility] Last Admin: 07/30/16 21:27 Dose: 20 units Lactobacillus Acidophilus (Bacid Acidophilus) 1 cap PO BID [facility] Last Admin: 07/31/16 10:09 Dose: 1 cap Prednisone (Prednisone Tab) 20 mg PO DAILY [facility] PRN Reason: Taper Stop: 08/04/16 09:59 Last Admin: 07/31/16 10:15 Dose: 20 mg Sodium Bicarbonate (Sodium Bicarbonate Tab) 650 mg PO TID [facility] - Labs Labs: 07/31/16 07:03 07/31/16 07:03 PT 12.7 SECONDS (9.7-12.2) H 07/28/16 14:35 INR 1.1 07/28/16 14:35 APTT 29 SECONDS (21-34) 07/28/16 14:35
[2016-07-31 14:28] LABS: IRON 99 ug/dL (49-181)
[2016-07-31 15:33] LABS: FOLATE 9.4 ng/mL
[2016-07-31] MEDS: Amoxicillin-Clav 500-125 mg Tab PO SCH (19:14)
[2016-07-31] MEDS: (Lantus) Insulin Glargine, Recombinant SC SCH ×2 (22:19→22:21)
[2016-08-01] MEDS: Sodium Chloride 0.9% 1,000 ML IV SCH ×2 (00:39→18:00)
[2016-08-01 07:29] LABS: TOTAL PROTEIN, SERUM 5.6 g/dL (6.1-8.1)
[2016-08-01 08:08] LABS: BASO % 0.1 % (0.0-2.0); EOS % 0.3 % (0.0-4.0); HEMATOCRIT 36.2 % (35.0-51.0); LYMPH # 1.1 K/uL (1.0-4.3); LYMPH % 13.7 % (20.0-40.0); MEAN CELL VOLUME 90.5 fL (80.0-94.0); MEAN CORPUSCULAR HEMOGLOBIN 29.8 pg (27.0-31.0); MEAN CORPUSCULAR HGB CONC 32.9 g/dL (33.0-37.0); MEAN PLATELET VOLUME 10.8 fL (7.2-11.7); MONO # 0.4 K/uL (0.0-0.8); MONO % 5.4 % (0.0-10.0); RED CELL DISTRIBUTION WIDTH 17.1 % (11.5-14.5); WHITE BLOOD COUNT 8.1 K/uL (4.8-10.8)
[2016-08-01 08:27] LABS: POTASSIUM 5.3 mmol/L (3.6-5.2)
[2016-08-01 08:29] LABS: ALB/GLOB RATIO 0.9 (1.0-2.1); BILIRUBIN,TOTAL 0.6 mg/dL (0.2-1.3)
[2016-08-01 08:30] LABS: CALCIUM 8.5 mg/dl (8.6-10.4)
[2016-08-01] MEDS: (Novolog) Insulin Aspart, Recombinant 100 u/ml 10 ml vial SC SCH ×4 (08:35→21:43)
[2016-08-01] MEDS: Amoxicillin-Clav 500-125 mg Tab PO SCH ×2 (08:38→20:45)
[2016-08-01] MEDS: Lactobacillus Acidophilus 500 MU Cap PO SCH ×2 (10:00→17:41)
--- NOTE | 2016-08-01 13:36 | CP.PCM.PN ---
Subjective - Date & Time of Evaluation Date of Evaluation: 08/01/16 Time of Evaluation: 12:00 - Subjective Subjective: feels good no n/v Objective - Vital Signs/Intake and Output Vital Signs (last 24 hours): Temp Pulse Resp BP Pulse Ox 97.5 F L 63 20 174/88 H 95 08/01/16 08:09 08/01/16 08:09 08/01/16 08:09 08/01/16 10:00 08/01/16 08:09 Intake and Output: 08/01/16 08/01/16 06:59 18:59 Intake Total 1580 Balance 1580 - Medications Medications: Current Medications Amlodipine Besylate (Norvasc) 5 mg PO DAILY [facility] Last Admin: 08/01/16 10:01 Dose: 5 mg Amoxicillin/Clavulanate Potassium (Augmentin 500 Mg-125 Mg Tab) 1 tab PO Q12H [facility] Last Admin: 08/01/16 08:38 Dose: 1 tab Carvedilol (Coreg) 25 mg PO BID [facility] Last Admin: 08/01/16 10:00 Dose: 25 mg Clopidogrel Bisulfate (Plavix) 75 mg PO DAILY [facility] Last Admin: 08/01/16 09:59 Dose: 75 mg Doxazosin Mesylate (Cardura) 4 mg PO DAILY [facility] Last Admin: 08/01/16 10:01 Dose: 4 mg Famotidine (Pepcid) 20 mg PO DAILY [facility] Last Admin: 08/01/16 10:00 Dose: 20 mg Gabapentin (Neurontin) 600 mg PO TID [facility] Last Admin: 08/01/16 10:10 Dose: 600 mg Sodium Chloride (Sodium Chloride 0.9%) 1,000 mls @ 80 mls/hr IV .[id number] [facility] Last Admin: 08/01/16 00:39 Dose: 80 mls/hr Insulin Aspart (Novolog) 0 unit SC ACHS [facility] PRN Reason: Protocol Last Admin: 08/01/16 12:58 Dose: 6 unit Insulin Glargine (Lantus) 30 unit SC HS [facility] Last Admin: 07/31/16 22:21 Dose: 30 units Lactobacillus Acidophilus (Bacid Acidophilus) 1 cap PO BID [facility] Last Admin: 08/01/16 10:00 Dose: 1 cap Prednisone (Prednisone Tab) 20 mg PO DAILY [facility] PRN Reason: Taper Stop: 08/04/16 09:59 Last Admin: 08/01/16 10:00 Dose: 20 mg Sodium Bicarbonate (Sodium Bicarbonate Tab) 650 mg PO TID [facility] Last Admin: 08/01/16 09:59 Dose: 650 mg - Labs Labs: 08/01/16 07:46 08/01/16 07:46 PT 12.7 SECONDS (9.7-12.2) H 07/28/16 14:35 INR 1.1 07/28/16 14:35 APTT 29 SECONDS (21-34) 07/28/16 14:35 - Constitutional Appears: Non-toxic - Head Exam Head Exam: ATRAUMATIC - Eye Exam Eye Exam: Normal appearance - ENT Exam ENT Exam: Normal Exam - Neck Exam Neck Exam: Normal Inspection - Respiratory Exam Respiratory Exam: NORMAL BREATHING PATTERN - Cardiovascular Exam Cardiovascular Exam: +S1, +S2 - GI/Abdominal Exam GI & Abdominal Exam: Normal Bowel Sounds - Extremities Exam Additional comments: no edema - Neurological Exam Neurological Exam: Alert, Oriented x3 - Psychiatric Exam Psychiatric exam: Normal Affect - Skin Skin Exam: Normal Color Assessment and Plan - Assessment and Plan (Free Text) Assessment: Assessment ARF/CKD/ HTN/ Otitis media/DM/ Hyperkalemia/ Acidosis/ Plan -continue to monitor renal function it is improving today. Has microscopic hematuria and less than 1 gram of protein. GN serologies sent. -has significant b/l disease requiring HD in past though etiology is not clear at this time -continue current antihypertensives -will monitor k -monitor hco3 can d/c suppllement if continues to improve -dm per primary
[2016-08-01] MEDS: (Lantus) Insulin Glargine, Recombinant SC SCH (21:42)
[2016-08-02 08:07] LABS: BASO % 0.3 % (0.0-2.0); EOS # 0.1 K/uL (0.0-0.7); EOS % 1.3 % (0.0-4.0); HEMATOCRIT 34.8 % (35.0-51.0); LYMPH # 1.3 K/uL (1.0-4.3); LYMPH % 16.9 % (20.0-40.0); MEAN CELL VOLUME 90.8 fL (80.0-94.0); MEAN CORPUSCULAR HEMOGLOBIN 29.6 pg (27.0-31.0); MEAN CORPUSCULAR HGB CONC 32.6 g/dL (33.0-37.0); MEAN PLATELET VOLUME 10.5 fL (7.2-11.7); MONO # 0.5 K/uL (0.0-0.8); RED CELL DISTRIBUTION WIDTH 17.1 % (11.5-14.5); WHITE BLOOD COUNT 7.8 K/uL (4.8-10.8)
[2016-08-02 08:30] LABS: BILIRUBIN,TOTAL 0.6 mg/dL (0.2-1.3); TOTAL PROTEIN 5.5 g/dL (6.3-8.3)
[2016-08-02] MEDS: Amoxicillin-Clav 500-125 mg Tab PO SCH ×2 (08:55→19:55)
[2016-08-02] MEDS: (Novolog) Insulin Aspart, Recombinant 100 u/ml 10 ml vial SC SCH ×4 (08:56→21:45)
[2016-08-02] MEDS: Lactobacillus Acidophilus 500 MU Cap PO SCH ×2 (10:45→17:53)
[2016-08-02] MEDS: (Lantus) Insulin Glargine, Recombinant SC SCH (21:47)
[2016-08-03] MEDS: (Novolog) Insulin Aspart, Recombinant 100 u/ml 10 ml vial SC SCH ×4 (07:47→22:09)
[2016-08-03] MEDS: Amoxicillin-Clav 500-125 mg Tab PO SCH ×2 (07:47→20:16)
[2016-08-03] MEDS: Lactobacillus Acidophilus 500 MU Cap PO SCH ×2 (10:24→17:36)
--- NOTE | 2016-08-03 12:55 | CP.PCM.PN ---
Subjective - Date & Time of Evaluation Date of Evaluation: 08/03/16 Time of Evaluation: 12:30 - Subjective Subjective: Comfortable in bed No c/o sob Objective - Vital Signs/Intake and Output Vital Signs (last 24 hours): Temp Pulse Resp BP Pulse Ox 98 F 77 20 132/75 97 08/03/16 07:37 08/03/16 07:37 08/03/16 07:37 08/03/16 10:23 08/03/16 07:37 Intake and Output: 08/03/16 08/03/16 06:59 18:59 Intake Total 890 Balance 890 - Medications Medications: Current Medications Amlodipine Besylate (Norvasc) 5 mg PO DAILY [facility] Last Admin: 08/03/16 10:23 Dose: 5 mg Amoxicillin/Clavulanate Potassium (Augmentin 500 Mg-125 Mg Tab) 1 tab PO Q12H [facility] Last Admin: 08/03/16 07:47 Dose: 1 tab Carvedilol (Coreg) 25 mg PO BID [facility] Last Admin: 08/03/16 10:23 Dose: 25 mg Clopidogrel Bisulfate (Plavix) 75 mg PO DAILY [facility] Last Admin: 08/03/16 10:23 Dose: 75 mg Doxazosin Mesylate (Cardura) 4 mg PO DAILY [facility] Last Admin: 08/03/16 10:24 Dose: 4 mg Famotidine (Pepcid) 20 mg PO DAILY [facility] Last Admin: 08/03/16 10:23 Dose: 20 mg Gabapentin (Neurontin) 600 mg PO TID [facility] Last Admin: 08/03/16 10:23 Dose: 600 mg Insulin Aspart (Novolog) 0 unit SC [facility] PRN Reason: Protocol Last Admin: 08/03/16 12:00 Dose: 2 unit Insulin Glargine (Lantus) 30 unit SC HS [facility] Last Admin: 08/02/16 21:47 Dose: 30 units Lactobacillus Acidophilus (Bacid Acidophilus) 1 cap PO BID [facility] Last Admin: 08/03/16 10:24 Dose: 1 cap Prednisone (Prednisone Tab) 10 mg PO DAILY [facility] PRN Reason: Taper Stop: 08/04/16 09:59 Last Admin: 08/03/16 10:23 Dose: 10 mg Sodium Bicarbonate (Sodium Bicarbonate Tab) 650 mg PO TID [facility] Last Admin: 08/03/16 10:24 Dose: 650 mg - Labs Labs: 08/02/16 07:56 08/02/16 07:56 PT 12.7 SECONDS (9.7-12.2) H 07/28/16 14:35 INR 1.1 07/28/16 14:35 APTT 29 SECONDS (21-34) 07/28/16 14:35 - Respiratory Exam Additional comments: Lungs clear - Cardiovascular Exam Cardiovascular Exam: REGULAR RHYTHM - Extremities Exam Additional comments: No edema Assessment and Plan - Assessment and Plan (Free Text) Assessment: Acute in chronic renal failure. Renal function continues to improve. Continue to monitor Plan: Continue to monitor renal function & K+
[2016-08-03] MEDS ORDERED: (Lantus) Insulin Glargine, Recombinant SC SCH (22:00)
--- NOTE | 2016-08-04 07:30 | PN ---
DATE: 08/03/2016 The patient is complaining of weakness, fatigue, unsteady legs. Will order physical therapy, out of bed. Follow up the BUN and creatinine. Ricky Rosa MD cc: [id number] TT: 08/03/2016 15:18:05 Confirmation # [id number] Dictation # [id number] en
[2016-08-04 07:35] VITALS: BP 146/83; PULSE 78; TEMP 97.9; O2SAT 98
[2016-08-04] MEDS: (Novolog) Insulin Aspart, Recombinant 100 u/ml 10 ml vial SC SCH ×2 (07:43→11:37)
[2016-08-04 08:28] LABS: POTASSIUM 4.6 mmol/L (3.6-5.2)
[2016-08-04 08:31] LABS: CALCIUM 7.9 mg/dl (8.6-10.4)
[2016-08-04] MEDS: Lactobacillus Acidophilus 500 MU Cap PO SCH (09:40)
[2016-08-04] MEDS: Amoxicillin-Clav 500-125 mg Tab PO SCH (09:41)
--- NOTE | 2016-08-04 10:19 | VASCLAB ---
STUDY DESCRIPTION: HISTORY: le PAIN PRIORS: None. TECHNIQUE: Pulse volume recording waveforms and segmental pressures of bilateral lower extremities at multiple levels were obtained. Ankle Brachial Indices (ABIs) were calculated. Report prepared by NIKI Obrien, RVT RIGHT LOWER EXTREMITY: * Brachial artery: Pressure - 166 mmHg. * High thigh: Pressure - 220 mmHg: Ratio - NC: PVR waveform - Pulsatile * Low thigh: Pressure - 220 mmHg: Ratio - NC PVR waveform: Pulsatile * Calf: Pressure - 220 mmHg: Ratio - NC PVR waveform: Pulsatile * Posterior tibial Artery: Pressure - 213 mmHg: Ratio - 1028 PVR waveform: Pulsatile * Dorsalis pedis Artery: Pressure - 189 mmHg: Ratio - 1.14 PVR waveform: Pulsatile * Great toe: Pressure - mmHg: Ratio - PVR waveform: Ankle brachial index (JASWANT): 1.28 LEFT LOWER EXTREMITY: * Brachial artery: Pressure - 164 mmHg. * High thigh: Pressure - 220 mmHg: Ratio - NC: PVR waveform - Pulsatile * Low thigh: Pressure - 220 mmHg: Ratio - NC PVR waveform: Pulsatile * Calf: Pressure - 220 mmHg: Ratio - NC PVR waveform: Pulsatile * Posterior tibial Artery: Pressure - 220 mmHg: Ratio - NC PVR waveform: Pulsatile * Dorsalis pedis Artery: Pressure - 209 mmHg: Ratio - 1.26 PVR waveform: Pulsatile * Great toe: Pressure - mmHg: Ratio - PVR waveform: Ankle brachial index (JASWANT): 1.26 OTHER FINDINGS: Right: Left: IMPRESSION: Right: The ankle pressure index of the right lower extremity is non-diagnostic due to possible arterial wall calcifications. Left: The ankle pressure index of the left lower extremity is non-diagnostic due to possible arterial wall calcifications. CT angiogram recommended for better assessment.
[2016-08-04 11:32] LABS: BETA 1 GLOBULIN 0.4 g/dL (0.4-0.6); BETA 2 GLOBULIN 0.4 g/dL (0.2-0.5); GAMMA GLOBULIN 0.8 g/dL (0.8-1.7)
--- NOTE | 2016-08-04 11:37 | CP.PCM.PN ---
Subjective - Date & Time of Evaluation Date of Evaluation: 08/04/16 Time of Evaluation: 10:00 - Subjective Subjective: PGY2 Medicine Note - Dr. Peralta's service: Patient seen and examined at bedside this AM. Patient reports b/l burning foot pain. Patient has no other complaints. Objective - Vital Signs/Intake and Output Vital Signs (last 24 hours): Temp Pulse Resp BP Pulse Ox 97.9 F 78 20 146/83 98 08/04/16 07:33 08/04/16 07:33 08/04/16 07:33 08/04/16 09:41 08/04/16 07:33 Intake and Output: 08/04/16 08/04/16 06:59 18:59 Intake Total 750 Balance 750 - Medications Medications: Current Medications Amlodipine Besylate (Norvasc) 5 mg PO DAILY [facility] Last Admin: 08/04/16 09:41 Dose: 5 mg Amoxicillin/Clavulanate Potassium (Augmentin 500 Mg-125 Mg Tab) 1 tab PO Q12H [facility] Last Admin: 08/04/16 09:41 Dose: 1 tab Carvedilol (Coreg) 25 mg PO BID [facility] Last Admin: 08/04/16 09:41 Dose: 25 mg Clopidogrel Bisulfate (Plavix) 75 mg PO DAILY [facility] Last Admin: 08/04/16 09:40 Dose: 75 mg Doxazosin Mesylate (Cardura) 4 mg PO DAILY [facility] Last Admin: 08/04/16 09:41 Dose: 4 mg Famotidine (Pepcid) 20 mg PO DAILY [facility] Last Admin: 08/04/16 09:43 Dose: 20 mg Gabapentin (Neurontin) 600 mg PO TID [facility] Last Admin: 08/04/16 09:41 Dose: 600 mg Insulin Aspart (Novolog) 0 unit SC [facility] PRN Reason: Protocol Last Admin: 08/04/16 07:43 Dose: 2 unit Insulin Glargine (Lantus) 35 unit SC HS [facility] Last Admin: 08/03/16 22:11 Dose: 35 unit Lactobacillus Acidophilus (Bacid Acidophilus) 1 cap PO BID [facility] Last Admin: 08/04/16 09:40 Dose: 1 cap Sodium Bicarbonate (Sodium Bicarbonate Tab) 650 mg PO TID [facility] Last Admin: 08/04/16 09:41 Dose: 650 mg - Labs Labs: 08/02/16 07:56 08/04/16 08:07 PT 12.7 SECONDS (9.7-12.2) H 07/28/16 14:35 INR 1.1 07/28/16 14:35 APTT 29 SECONDS (21-34) 07/28/16 14:35 - Constitutional Appears: Non-toxic, No Acute Distress - Head Exam Head Exam: NORMAL INSPECTION - Eye Exam Eye Exam: EOMI - ENT Exam ENT Exam: Mucous Membranes Moist - Respiratory Exam Respiratory Exam: Clear to Ausculation Bilateral, NORMAL BREATHING PATTERN. absent: Rales, Rhonchi, Wheezes - Cardiovascular Exam Cardiovascular Exam: REGULAR RHYTHM, +S1, +S2 - GI/Abdominal Exam GI & Abdominal Exam: Soft, Normal Bowel Sounds. absent: Tenderness - Extremities Exam Extremities Exam: Tenderness. absent: Pedal Edema - Neurological Exam Neurological Exam: Alert, Oriented x3 - Psychiatric Exam Psychiatric exam: Normal Affect, Normal Mood - Skin Skin Exam: Normal Color, Warm Assessment and Plan - Assessment and Plan (Free Text) Assessment: Acute on chronic kidney injuries BUN and Cr 49 and 4.4 on Wednesday Cr down to 2.6 today - baseline Pt has hx of brief dialysis in the past. Nephro Dr. Santos consulted, help appreciated. Prednisone taper, 20mg tomorrow and Wednesday, and 10mg Wednesday and Wednesday. ESR 40 CRP>15 Discharge today with home PT Hematuria See above. Augmentin 500-125mg PO Q12H (started 07/31) Given 6 more days on script Weakness Head and abdomen CT negative. Hx of CAD Coreg 25mg PO daily. Plavix 75mg PO daily. Cardura 4mg PO daily Crestor 5mg PO HS. Cozaar 50mg PO daily. DM Home Actos stopped. Start Lantus 15U SC HS. RISS, accuchecks. Neurontin 600mg PO daily. Prophylactic measure SCD, Pepcid. PT eval - recommend TCU v. home with home PT Management as per Dr. Peralta
--- NOTE | 2016-08-04 11:49 | CP.PCM.PN ---
Subjective - Date & Time of Evaluation Date of Evaluation: 08/04/16 Time of Evaluation: 11:47 - Subjective Subjective: pt. is in bed eating lunch feels well no specific complaints Objective - Vital Signs/Intake and Output Vital Signs (last 24 hours): Temp Pulse Resp BP Pulse Ox 97.9 F 78 20 146/83 98 08/04/16 07:33 08/04/16 07:33 08/04/16 07:33 08/04/16 09:41 08/04/16 07:33 Intake and Output: 08/04/16 08/04/16 06:59 18:59 Intake Total 750 Balance 750 - Medications Medications: Current Medications Amlodipine Besylate (Norvasc) 5 mg PO DAILY [facility] Last Admin: 08/04/16 09:41 Dose: 5 mg Amoxicillin/Clavulanate Potassium (Augmentin 500 Mg-125 Mg Tab) 1 tab PO Q12H [facility] Last Admin: 08/04/16 09:41 Dose: 1 tab Carvedilol (Coreg) 25 mg PO BID [facility] Last Admin: 08/04/16 09:41 Dose: 25 mg Clopidogrel Bisulfate (Plavix) 75 mg PO DAILY [facility] Last Admin: 08/04/16 09:40 Dose: 75 mg Doxazosin Mesylate (Cardura) 4 mg PO DAILY [facility] Last Admin: 08/04/16 09:41 Dose: 4 mg Famotidine (Pepcid) 20 mg PO DAILY [facility] Last Admin: 08/04/16 09:43 Dose: 20 mg Gabapentin (Neurontin) 600 mg PO TID [facility] Last Admin: 08/04/16 09:41 Dose: 600 mg Insulin Aspart (Novolog) 0 unit SC ACHS [facility] PRN Reason: Protocol Last Admin: 08/04/16 11:37 Dose: 2 unit Insulin Glargine (Lantus) 35 unit SC HS [facility] Last Admin: 08/03/16 22:11 Dose: 35 unit Lactobacillus Acidophilus (Bacid Acidophilus) 1 cap PO BID [facility] Last Admin: 08/04/16 09:40 Dose: 1 cap Sodium Bicarbonate (Sodium Bicarbonate Tab) 650 mg PO TID [facility] Last Admin: 08/04/16 09:41 Dose: 650 mg - Labs Labs: 08/02/16 07:56 08/04/16 08:07 PT 12.7 SECONDS (9.7-12.2) H 07/28/16 14:35 INR 1.1 07/28/16 14:35 APTT 29 SECONDS (21-34) 07/28/16 14:35 - Constitutional Appears: No Acute Distress - Eye Exam Eye Exam: Normal appearance - ENT Exam ENT Exam: Mucous Membranes Moist - Respiratory Exam Respiratory Exam: NORMAL BREATHING PATTERN. absent: Chest Wall Tenderness, Rales - Cardiovascular Exam Cardiovascular Exam: absent: JVD, Rubs - GI/Abdominal Exam GI & Abdominal Exam: Soft, Normal Bowel Sounds. absent: Guarding - Extremities Exam Extremities Exam: absent: Calf Tenderness - Back Exam Back Exam: absent: CVA tenderness (L), CVA tenderness (R) - Neurological Exam Neurological Exam: Alert Assessment and Plan (1) Acute kidney injury superimposed on CKD Assessment & Plan: kidney function stable perhaps ckd 3? related to DM? with super imposed CHARLEE no significant proteinuria continue monitoring Status: Acute
[2016-08-04 12:20] LABS: BASO % 0.4 % (0.0-2.0); EOS # 0.4 K/uL (0.0-0.7); EOS % 4.1 % (0.0-4.0); HEMATOCRIT 35.4 % (35.0-51.0); LYMPH # 1.5 K/uL (1.0-4.3); LYMPH % 17.3 % (20.0-40.0); MEAN CELL VOLUME 89.3 fL (80.0-94.0); MEAN CORPUSCULAR HEMOGLOBIN 29.6 pg (27.0-31.0); MEAN CORPUSCULAR HGB CONC 33.1 g/dL (33.0-37.0); MEAN PLATELET VOLUME 9.9 fL (7.2-11.7); MONO # 0.6 K/uL (0.0-0.8); MONO % 6.4 % (0.0-10.0); WHITE BLOOD COUNT 8.6 K/uL (4.8-10.8)
[2016-08-04] MEDS ORDERED: Pneumococcal 23-Valent Vaccine IM ONE (12:42)
[2016-08-04 12:55] LABS: POTASSIUM 4.5 mmol/L (3.6-5.2)
[2016-08-04 12:57] LABS: BILIRUBIN,TOTAL 0.5 mg/dL (0.2-1.3); TOTAL PROTEIN 5.8 g/dL (6.3-8.3)
[2016-08-04 12:58] LABS: CALCIUM 8.1 mg/dl (8.6-10.4)
--- NOTE | 2016-08-17 14:34 | CARD ---
APPROVED REPORT EKG Measurement Heart [id number] <Conclusion> Normal sinus rhythm Possible Left atrial enlargement Left ventricular hypertrophy T wave abnormality, consider lateral ischemia Abnormal ECG
--- NOTE | 2016-09-28 11:23 | DS ---
The patient chief complaint renal failure. The patient auscultated in . The patient showing improvement. The patient will have an following up as an outpatient. Ricky Peralta MD
== END 2016-08-04 14:55 | disposition home or self-care (01) | DRG 684 ==
LOC: C.ER 13:55 → C.3T 16:46
PROVIDERS: ADMIT Internal Medicine Pulmonary Disease; ATTEND Internal Medicine Pulmonary Disease
DX: N17.9 Acute kidney failure, unspecified (principal); E11.22 Type 2 diabetes mellitus with diabetic chronic kidney disease; E11.65 Type 2 diabetes mellitus with hyperglycemia; I12.9 Hypertensive chronic kidney disease with stage 1 through stage 4 chronic kidney disease, or unspecified chronic kidney disease; N18.3 Chronic kidney disease, stage 3 (moderate); R62.7 Adult failure to thrive; I25.10 Atherosclerotic heart disease of native coronary artery without angina pectoris; H66.93 Otitis media, unspecified, bilateral; D69.6 Thrombocytopenia, unspecified; R31.9 Hematuria, unspecified; E78.5 Hyperlipidemia, unspecified; Z95.1 Presence of aortocoronary bypass graft; Z90.49 Acquired absence of other specified parts of digestive tract; Z98.49 Cataract extraction status, unspecified eye; Z79.4 Long term (current) use of insulin; J34.2 Deviated nasal septum

== ENCOUNTER 2017-07-14 13:58 | Inpatient (IN) | payer MEDICARE, OTHER ==
[2017-07-14 13:58] VITALS: BMI 33.8
[2017-07-14] MEDS ORDERED: Sodium Chloride 0.9% 1,000 ML IV ONE (14:29)
[2017-07-14 14:55] LABS: VENOUS BLOOD GAS BASE EXCESS -1.5 mmol/L (0.0-2.0); VENOUS BLOOD GAS PCO2 41 mmHg (40-60); VENOUS BLOOD GAS PO2 33 mm/Hg (30-55); VENOUS BLOOD PH 7.37 (7.32-7.43)
[2017-07-14 14:57] LABS: HEMOGLOBIN 12.6 g/dL (12.0-18.0); MEAN CELL VOLUME 91.2 fL (80.0-94.0); MEAN CORPUSCULAR HEMOGLOBIN 30.5 pg (27.0-31.0); MEAN CORPUSCULAR HGB CONC 33.4 g/dL (33.0-37.0); MEAN PLATELET VOLUME 11.1 fL (7.2-11.7); RBC 4.12 Mil/uL (4.40-5.90); RED CELL DISTRIBUTION WIDTH 15.3 % (11.5-14.5)
[2017-07-14 15:00] LABS: PLATELET COUNT 116 K/uL (130-400); WHITE BLOOD COUNT 16.4 K/uL (4.8-10.8)
[2017-07-14 15:10] LABS: ALB/GLOB RATIO 1.1 (1.0-2.1); ALBUMIN 3.3 g/dL (3.5-5.0); CALCIUM 8.9 mg/dl (8.6-10.4)
--- NOTE | 2017-07-14 15:12 | C.PDOC ---
History Of Present Illness 76 y/o male with a history of cardiac dizziness presents to the ED with right sided CP. Patient states it began this morning describing the CP as pressure to the right abdomen. He is complaining of nausea and vomiting. Patient states he felt hot and claims he had a fever but the temperature was never taken. Denies any diarrhea, URI, or cough. PMD: Dr. Ricky Peralta Time Seen by Provider: 07/14/17 14:24 Chief Complaint (Nursing): Medical Clearance History Per: Patient History/Exam Limitations: no limitations Onset/Duration Of Symptoms: Hrs Current Symptoms Are (Timing): Still Present Recent travel outside of the [place]: No Past Medical History Vital Signs: Last Vital Signs Temp 102.3 F H 07/14/17 14:54 Pulse 104 H 07/14/17 14:14 Resp 16 07/14/17 14:14 BP 148/89 07/14/17 14:14 Pulse Ox 97 07/14/17 15:29 - Medical History PMH: Anemia, Bronchitis, Gall Bladder Disease, HTN, Hypercholesterolemia, Chronic Kidney Disease Surgical History: CABG (1996(@[facility] Cholecystectomy Denies: Pacemaker Other Surgeries: cardiac dizziness, quadruple bypass, renal insufficiency - [facility] Procedures COLONOSCOPY (11/06/11) DRAINAGE OF LEFT MIDDLE EAR WITH DRAIN DEV, OPEN APPROACH (03/03/16) OTHER ENDOSCOPY OF SM INTEST (10/16/11) Family History: States: Unknown Family Hx - Social History Hx Tobacco Use: No Hx Alcohol Use: No Hx Substance Use: No - Immunization History Hx Tetanus Toxoid Vaccination: Yes Hx Influenza Vaccination: Yes Hx Pneumococcal Vaccination: Yes Review Of Systems Constitutional: Positive for: Fever, Weakness Cardiovascular: Positive for: Chest Pain Respiratory: Negative for: Cough, Other (URI symptoms) Gastrointestinal: Positive for: Nausea, Vomiting, Abdominal Pain. Negative for : Diarrhea Physical Exam - Physical Exam Appears: Well, No Acute Distress Skin: Normal Color, Warm, Dry Head: Atraumatic, Normacephalic Eye(s): bilateral: Normal Inspection, PERRL, EOMI Nose: Normal Throat: Normal Neck: Normal, Supple Cardiovascular: No Rhythm Regular (febrile tachycardia) Respiratory: Normal Breath Sounds, No Decreased Breath Sounds Gastrointestinal/Abdominal: Normal Exam, Soft, No Tenderness, No Guarding Back: Normal Inspection, No CVA Tenderness, No Vertebral Tenderness Extremity: Normal ROM, No Pedal Edema, No Deformity Neurological/Psych: Oriented x3 ED Course And Treatment - Laboratory Results Result Diagrams: 07/14/17 14:48 07/14/17 14:48 Lab Interpretation: Abnormal (WBC 16.4, BUN 48, Cr 2.7, Glucose 318) ECG: Interpreted By Ri ECG Rhythm: Sinus Tachycardia (with LVH) O2 Sat by Pulse Oximetry: 97 (RA) Pulse Ox Interpretation: Normal - Radiology CXR: Interpreted by Me CXR Interpretation: Yes: Infiltrates (RUL) Reevaluation Time: 15:56 Reassessment Condition: Improved - Physician Consult Information Time Consulting Physician Contacted: 15:56 Physician Contacted: Ricky Peralta Outcome Of Conversation: Patient to be admitted for treatment of CAP. Medical Decision Making Medical Decision Making: Time: 14:14 Impression: CP and fever r/o pneumonia, intra abdomen pathology Initial Plan: * EKG * Chest X-Ray * Tylenol 650 mg PO * IV Fluids * Blood Culture * Urine Culture * Urinalysis Scribe Attestation: Documented by Shannan Fuller acting as a scribe Kiki Rausch MD. Scribe Attestation: All medical record entries made by the Scribe were at my direction and personally dictated by me. I have reviewed the chart and agree that the record accurately reflects my personal performance of the history, physical exam, medical decision making, and the department course for this patient. I have also personally directed, reviewed, and agree with the discharge instructions and disposition. Disposition - Disposition Disposition: HOSPITALIZED Disposition Time: 15:57 Condition: STABLE - POA Present On Arrival: Poor Glycemic Control - Clinical Impression Clinical Impression: Pneumonia
[2017-07-14 15:21] LABS: TROPONIN I 0.057 ng/mL (0.00-0.120)
[2017-07-14] MEDS ORDERED: cefTRIAXone IV 1 gm in Dextros 50 ML IVPB ONE ×2 (15:44→16:05)
[2017-07-14] MEDS ORDERED: Azithromycin 500 MG in Sodium Chloride 0.9% 250 ML IVPB STA (15:45)
[2017-07-14 15:57] LABS: URINE AMORPHOUS SEDIMENT OCC /ul (<OCC); URINE BACTERIA RARE (<OCC); URINE BILIRUBIN NEGATIVE (NEGATIVE); URINE BLOOD 1+ (NEGATIVE); URINE CLARITY Clear (Clear); URINE COLOR Yellow (YELLOW); URINE GLUCOSE (UA) 3+ mg/dL (Normal); URINE LEUKOCYTE ESTERASE NEG Leu/uL (Negative); URINE PROTEIN 2+ mg/dL (NEGATIVE); URINE UROBILINOGEN NORMAL mg/dL (0.2-1.0)
--- NOTE | 2017-07-14 16:18 | CP.PCM.PN ---
Subjective - Date & Time of Evaluation Date of Evaluation: 07/14/17 Time of Evaluation: 16:17 - Subjective Subjective: PGY2 Resident Medicine Note HPI: This 76 y/o male with a PMHx of anemia, bronchitis, HTN, HLD, CKD - presents to the ED c/o SOB for the past 3 days, no cough, but daily yellow sputum production. He reports difficulty getting the sputum out. This morning at 6am, he awoke with a fever of 103F, feeling extremely lethargic. He also became nauseous today, and vomited twice consistent with swallowed mucous ( blood tinged). He has not attempted any OTC medications. He took his carvedilol today and plavix. Patient denies radiating chest pain, dizziness, headache, d/c , cough, or LE edema. 12 point ROS otherwise negative with no additional acute complaints. 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 lives at home; retired. Objective - Vital Signs/Intake and Output Vital Signs (last 24 hours): Temp Pulse Resp BP Pulse Ox 102.3 F H 104 H 16 148/89 97 07/14/17 14:54 07/14/17 14:14 07/14/17 14:14 07/14/17 14:14 07/14/17 16:00 - Medications Medications: Current Medications Azithromycin 500 mg/ Sodium (Chloride) 250 mls @ 250 mls/hr IVPB STAT STA PRN Reason: Protocol Stop: 07/14/17 16:44 - Labs Labs: 07/14/17 14:48 07/14/17 14:48 - Additional Findings Additional findings: - Constitutional Appears: Non-toxic, No Acute Distress appears acutely ill - Head Exam Head Exam: NORMAL INSPECTION - Eye Exam Eye Exam: EOMI - ENT Exam ENT Exam: Mucous Membranes Moist - Respiratory Exam Respiratory Exam: Rales (RUL, mild), NORMAL BREATHING PATTERN. absent: Rhonchi , Wheezes R chest wall TTP L chest wall no tenderness - Cardiovascular Exam Cardiovascular Exam: Tachycardia, +S1, +S2 - GI/Abdominal Exam GI & Abdominal Exam: Soft, Normal Bowel Sounds. absent: Tenderness - Extremities Exam Extremities Exam: absent: Pedal Edema - Neurological Exam Neurological Exam: Alert, Oriented x3 - Psychiatric Exam Psychiatric exam: Normal Affect, Normal Mood - Skin Skin Exam: Normal Color, Warm, Intact Assessment and Plan - Assessment and Plan (Free Text) Assessment: Pneumonia ED course: Rocephin 1gm IVPB once. Start Ceftriaxone 1gm IVPB qD Start Azithromycine 500mg IVPB qD Mucinex CXR - RUL infiltrates, see full report Temp 102.3 EKG - tachy, LVH, see full report f/u sputum culture f/u V/Q scan to r/o PE IVF NS at 100cc/hr Fever Tylenol 650mg PO q6H PRN, fever Temp 102.3F Tmax at home 103 Costochondritis Tylenol 650mg PO q6H PRN, pain R sided chest pain reproducible to palpation Chronic Kidney Disease BUN 48 / Cr 2.7 - this is his baseline GFR 23 -at baseline continue to monitor IVF NS at 100cc/hr Hx of CAD Carvedilol 25mg PO BID Plavix 75mg PO daily. Crestor 5mg PO HS. Norvasc 5mg 2tab PO qD Diabetes Home Actos stopped (C/I with Plavix) Start Lantus 15u SC HS ISS High Dose, accuchecks. Neurontin 600mg PO TID Prophylactic measure SCD Protonix PT / OT Case discussed with attending. All medical management as per Dr. Frantz Peralta.
[2017-07-14] MEDS ORDERED: Sodium Chloride 0.9% 1,000 ML IV SCH (17:15)
--- NOTE | 2017-07-14 18:08 | NM ---
COMPARISON: Comparison is made with the previous same-day chest x-ray TECHNIQUE: 9.9 mCi technetium 99-m Xe-133 Gas. 4.1 mCI technetium 99-m MAA administered intravenously. FINDINGS: VENTILATION COMPONENT: There is a segmental decreased ventilation in the right upper lobe PERFUSION COMPONENT: Matching decreased perfusion in the right upper lobe is also noted. IMPRESSION: Lowprobability ventilation perfusion scan for pulmonary embolism. Matching perfusion and ventilation defect at the right upper lobe may represent pneumonia or other airspace disease.
[2017-07-14 18:27] LABS: BANDS 15 % (0-2); LYMPHOCYTE 8 % (20-40); NEUTROPHIL 74 % (50-75); TOTAL CELLS COUNTED 100
[2017-07-14 18:28] LABS: HYPOCHROMIC SLIGHT; MICROCYTOSIS SLIGHT; MONOCYTE 3 % (0-10); PLATELET ESTIMATE SLIGHTLY DECREASED (NORMAL)
[2017-07-14 18:29] LABS: OVALOCYTES SLIGHT
[2017-07-14] MEDS: Oxycodone/Acetaminophen 5/325 mg Tab PO PRN (19:16)
[2017-07-14] MEDS: guaiFENesin 600 mg ER Tab PO SCH (22:10)
[2017-07-14] MEDS: (Novolog) Insulin Aspart, Recombinant 100 u/ml 10 ml vial SC SCH (22:11)
[2017-07-14] MEDS: (Lantus) Insulin Glargine, Recombinant SC SCH (22:12)
[2017-07-14] MEDS: Sodium Chloride 0.9% 1,000 ML IV SCH (23:55)
[2017-07-15] MEDS ORDERED: Sodium Chloride 0.9% 1,000 ML IV SCH ×3 (01:15→03:00)
[2017-07-15 01:40] LABS: ABG ALLEN TEST POS; ARTERIAL BLOOD GAS HCO3 18.3 mmol/L (21-28); ARTERIAL BLOOD GAS O2 SAT 98.8 % (95-98); ARTERIAL BLOOD GAS PCO2 39 mm/Hg (35-45); ARTERIAL BLOOD GAS PH 7.27 (7.35-7.45); ARTERIAL BLOOD GAS PO2 80 mm/Hg (80-100); ARTERIAL BLOOD GAS TCO2 19.1 mmol/L (22-28)
[2017-07-15] MEDS: Sodium Chloride 0.9% 1,000 ML IV SCH ×3 (01:45→03:45)
--- NOTE | 2017-07-15 03:03 | CP.PCM.PCO ---
Physician Communication Note - Physician Communication Note Physician Communication Note: Hypotensive Assessment & Plan - Assessment and Plan (Free Text) Assessment: Nurse called about pt being hypotensive. Patient was noted to have BP of 71/ 44. HR of 87, resp 20 Sat 97% NC. patient was diaphoretic. Temp of 99.2 after receiving tylenol 1 hour prior. Patient was started on NS bolus. He received 3 L of NS bolus. ABG was drawn during the fluid resuscitation. Patient's BP improved after 3 L of NS to 94/60s. Pt was sleeping comfortably at this point. Was placed on NS 100 cc. - Date & Time Date: 07/15/17 Time: 03:03
[2017-07-15 07:23] LABS: BASO % 0.3 % (0.0-2.0); EOS % 0.3 % (0.0-4.0); HEMOGLOBIN 11.6 g/dL (12.0-18.0); LYMPH # 0.9 K/uL (1.0-4.3); LYMPH % 4.7 % (20.0-40.0); MEAN CORPUSCULAR HEMOGLOBIN 30.3 pg (27.0-31.0); MEAN CORPUSCULAR HGB CONC 32.6 g/dL (33.0-37.0); MEAN PLATELET VOLUME 11.2 fL (7.2-11.7); MONO # 0.9 K/uL (0.0-0.8); MONO % 4.8 % (0.0-10.0); NEUT # 16.8 K/uL (1.8-7.0); NEUT % 89.9 % (50.0-75.0); RBC 3.82 Mil/uL (4.40-5.90); RED CELL DISTRIBUTION WIDTH 15.9 % (11.5-14.5); WHITE BLOOD COUNT 18.6 K/uL (4.8-10.8)
[2017-07-15 07:36] LABS: ARTERIAL BLOOD GAS HCO3 15.3 mmol/L (21-28); ARTERIAL BLOOD GAS O2 SAT 97.3 % (95-98); ARTERIAL BLOOD GAS PCO2 29 mm/Hg (35-45); ARTERIAL BLOOD GAS PH 7.27 (7.35-7.45); ARTERIAL BLOOD GAS PO2 75 mm/Hg (80-100); ARTERIAL BLOOD GAS TCO2 14.2 mmol/L (22-28)
[2017-07-15 07:36] LABS: ALBUMIN 2.9 g/dL (3.5-5.0); CALCIUM 7.8 mg/dl (8.6-10.4)
[2017-07-15 07:40] LABS: PLATELET COUNT 94 K/uL (130-400)
--- NOTE | 2017-07-15 08:10 | RAD ---
Chest x-ray single frontal view History: Shortness of breath. Comparison: 03/03/2016 Findings: Prominent opacification in the right upper to mid lung zone concerning for infiltrate and or edema. Post treatment interval followup would be helpful to ensure resolution. Venous congestion. Cardiomegaly. Status post median sternotomy. Degenerative changes in the spine. Impression: Prominent opacification in the right upper to mid lung zone concerning for infiltrate and or edema. Post treatment interval followup would be helpful to ensure resolution. Venous congestion. Cardiomegaly. Status post median sternotomy.
[2017-07-15] MEDS ORDERED: (Novolin R) Insulin Human Regular 100 units/ml vial IV ONE ×2 (08:11→09:30)
[2017-07-15] MEDS ORDERED: Dextrose 50% SYRINGE Inj (50 ml) IV STA ×2 (08:11→08:16)
[2017-07-15] MEDS: (Novolog) Insulin Aspart, Recombinant 100 u/ml 10 ml vial SC SCH ×4 (08:14→21:17)
--- NOTE | 2017-07-15 08:26 | RAD ---
HISTORY: shortness of breath COMPARISON: 07/14/2017 FINDINGS: LUNGS: Extensive right upper lobe consolidation. No significant change. PLEURA: No significant pleural effusion identified, no pneumothorax apparent. CARDIOVASCULAR: Normal heart size. Sternotomy wires. OSSEOUS STRUCTURES: No significant abnormalities. VISUALIZED UPPER ABDOMEN: Normal. OTHER FINDINGS: None. IMPRESSION: Right upper lobe consolidation.
--- NOTE | 2017-07-15 08:34 | CP.PCM.CON ---
<Neno Bryan - Last Filed: 07/15/17 16:43> Meds Allergies/Adverse Reactions: Allergies Allergy/AdvReac Type Severity Reaction Status Date / Time chicken derived AdvReac Severe VOMITING Verified 06/16/17 08:37 - Medications Medications: Current Medications Acetaminophen (Tylenol 325mg Tab) 650 mg PO Q6 PRN PRN Reason: Fever >100.4 F Last Admin: 07/14/17 22:26 Dose: 650 mg Albuterol/Ipratropium (Duoneb 3 Mg/0.5 Mg (3 Ml) Ud) 3 ml INH RQ4 [facility] Last Admin: 07/15/17 15:51 Dose: 3 ml Carvedilol (Coreg) 25 mg PO BID [facility] Last Admin: 07/15/17 11:29 Dose: 25 mg Clopidogrel Bisulfate (Plavix) 75 mg PO DAILY [facility] Last Admin: 07/15/17 09:48 Dose: 75 mg Guaifenesin (Mucinex La) 600 mg PO BID [facility] Last Admin: 07/15/17 11:31 Dose: 600 mg Guaifenesin (Robitussin) 200 mg PO BID [facility] Last Admin: 07/15/17 14:00 Dose: 200 mg Heparin Sodium (Porcine) (Heparin) 5,000 units SC Q8 [facility] Last Admin: 07/15/17 15:06 Dose: 5,000 units Azithromycin 500 mg/ Sodium (Chloride) 250 mls @ 250 mls/hr IVPB DAILY [facility] PRN Reason: Protocol Last Admin: 07/15/17 09:55 Dose: 250 mls/hr Cefepime HCl 0.5 gm/ Sodium (Chloride) 50 mls @ 100 mls/hr IVPB Q12 [facility] PRN Reason: Protocol Last Admin: 07/15/17 13:30 Dose: 100 mls/hr Sodium Bicarbonate 75 meq/ (Sodium Chloride) 1,000 mls @ 125 mls/hr IV .Q8H [facility] Last Admin: 07/15/17 09:15 Dose: 125 mls/hr Insulin Aspart (Novolog) 0 unit SC ACHS [facility] PRN Reason: Protocol Last Admin: 07/15/17 12:25 Dose: 4 unit Insulin Glargine (Lantus) 15 unit SC HS [facility] Last Admin: 07/14/17 22:12 Dose: 15 units Oxycodone/Acetaminophen (Percocet 5/325 Mg Tab) 2 tab PO Q4H PRN PRN Reason: Pain, severe (8-10) Stop: 07/17/17 18:54 Last Admin: 07/15/17 09:48 Dose: 2 tab Rosuvastatin Calcium (Crestor) 5 mg PO HS [facility] Last Admin: 07/14/17 22:10 Dose: 5 mg Results - Vital Signs Recent Vital Signs: Last Vital Signs Temp 98.5 F 07/15/17 12:00 Pulse 79 07/15/17 15:30 Resp 16 07/15/17 15:30 BP 102/67 07/15/17 14:53 Pulse Ox 99 07/15/17 15:30 - Labs Result Diagrams: 07/15/17 07:14 07/15/17 07:14 Labs: Laboratory Results - last 24 hr 07/14/17 07/14/17 07/14/17 14:48 21:30 23:50 WBC RBC Hgb Hct MCV MCH MCHC RDW Plt Count MPV Neut % (Auto) Lymph % (Auto) [place] % (Auto) Eos % (Auto) Baso % (Auto) Neut # (Auto) Lymph # (Auto) [place] # (Auto) Eos # (Auto) Baso # (Auto) Neutrophils % (Manual) 74 Band Neutrophils % 15 H* Lymphocytes % (Manual) 8 L Monocytes % (Manual) 3 Eosinophils % (Manual) TEST NOT PERFORMED Metamyelocytes % Myelocytes % TEST NOT PERFORMED Nucleated RBC % Toxic Granulation Dohle Bodies Platelet Estimate Slightly decreased L Hypochromasia (manual) Slight Anisocytosis (manual) Microcytosis (manual) Slight Ovalocytes Slight APTT Puncture Site pCO2 pO2 HCO3 ABG pH ABG Total CO2 ABG O2 Saturation ABG Base Excess Warner Test ABG Potassium Sodium Chloride Glucose Lactate Liter Flow Potassium Carbon Dioxide Anion Gap BUN Creatinine Est GFR ( Amer) Est GFR (Non-Af Amer) POC Glucose (mg/dL) 327 H 329 H Random Glucose Hemoglobin A1c Calcium Phosphorus Magnesium Total Bilirubin AST ALT Alkaline Phosphatase Total Protein Albumin Globulin Albumin/Globulin Ratio Arterial Blood Potassium 07/15/17 07/15/17 07/15/17 01:37 02:18 07:14 WBC 18.6 H RBC 3.82 L Hgb 11.6 L Hct 35.6 MCV 93.0 MCH 30.3 MCHC 32.6 L RDW 15.9 H Plt Count 94 L D MPV 11.2 Neut % (Auto) 89.9 H Lymph % (Auto) 4.7 L [place] % (Auto) 4.8 Eos % (Auto) 0.3 Baso % (Auto) 0.3 Neut # (Auto) 16.8 H Lymph # (Auto) 0.9 L [place] # (Auto) 0.9 H Eos # (Auto) 0.0 Baso # (Auto) 0.0 Neutrophils % (Manual) 74 Band Neutrophils % 19 H* Lymphocytes % (Manual) 1 L Monocytes % (Manual) 2 Eosinophils % (Manual) Metamyelocytes % 3 H Myelocytes % 1 H Nucleated RBC % 1 H Toxic Granulation Present Dohle Bodies Present Platelet Estimate Decreased L Hypochromasia (manual) Anisocytosis (manual) Slight Microcytosis (manual) Ovalocytes APTT Puncture Site R rad pCO2 39 pO2 80 HCO3 18.3 L ABG pH 7.27 L ABG Total CO2 19.1 L ABG O2 Saturation 98.8 H ABG Base Excess -8.4 L Warner Test Pos ABG Potassium 4.9 Sodium 137.0 Chloride 112.0 H Glucose 347 H Lactate 2.1 Liter Flow 5.0 Potassium Carbon Dioxide Anion Gap BUN Creatinine Est GFR ( Amer) Est GFR (Non-Af Amer) POC Glucose (mg/dL) 311 H Random Glucose Hemoglobin A1c Calcium Phosphorus Magnesium Total Bilirubin AST ALT Alkaline Phosphatase Total Protein Albumin Globulin Albumin/Globulin Ratio Arterial Blood Potassium 4.9 07/15/17 07/15/17 07/15/17 07:14 07:14 07:14 WBC RBC Hgb Hct MCV MCH MCHC RDW Plt Count MPV Neut % (Auto) Lymph % (Auto) [place] % (Auto) Eos % (Auto) Baso % (Auto) Neut # (Auto) Lymph # (Auto) [place] # (Auto) Eos # (Auto) Baso # (Auto) Neutrophils % (Manual) Band Neutrophils % Lymphocytes % (Manual) Monocytes % (Manual) Eosinophils % (Manual) Metamyelocytes % Myelocytes % Nucleated RBC % Toxic Granulation Dohle Bodies Platelet Estimate Hypochromasia (manual) Anisocytosis (manual) Microcytosis (manual) Ovalocytes APTT 40 H Puncture Site pCO2 pO2 HCO3 ABG pH ABG Total CO2 ABG O2 Saturation ABG Base Excess Warner Test ABG Potassium Sodium 139 Chloride 110 H Glucose Lactate Liter Flow Potassium 6.0 H Carbon Dioxide 18 L Anion Gap 17 BUN 50 H Creatinine 3.4 H Est GFR ( Amer) 21 Est GFR (Non-Af Amer) 18 POC Glucose (mg/dL) Random Glucose 290 H Hemoglobin A1c 9.7 H Calcium 7.8 L Phosphorus 5.9 H Magnesium 1.5 L Total Bilirubin 0.9 AST 14 L ALT 14 L D Alkaline Phosphatase 71 Total Protein 5.7 L Albumin 2.9 L Globulin 2.8 Albumin/Globulin Ratio 1.0 Arterial Blood Potassium 07/15/17 07/15/17 07/15/17 07:19 07:20 11:37 WBC RBC Hgb Hct MCV MCH MCHC RDW Plt Count MPV Neut % (Auto) Lymph % (Auto) [place] % (Auto) Eos % (Auto) Baso % (Auto) Neut # (Auto) Lymph # (Auto) [place] # (Auto) Eos # (Auto) Baso # (Auto) Neutrophils % (Manual) Band Neutrophils % Lymphocytes % (Manual) Monocytes % (Manual) Eosinophils % (Manual) Metamyelocytes % Myelocytes % Nucleated RBC % Toxic Granulation Dohle Bodies Platelet Estimate Hypochromasia (manual) Anisocytosis (manual) Microcytosis (manual) Ovalocytes APTT Puncture Site Rb pCO2 29 L pO2 75 L HCO3 15.3 L ABG pH 7.27 L ABG Total CO2 14.2 L ABG O2 Saturation 97.3 ABG Base Excess -12.2 L Warner Test Na ABG Potassium 4.3 Sodium 142.0 Chloride 116.0 H Glucose 256 H Lactate 1.3 Liter Flow 3.0 Potassium Carbon Dioxide Anion Gap BUN Creatinine Est GFR ( Amer) Est GFR (Non-Af Amer) POC Glucose (mg/dL) 313 H 229 H Random Glucose Hemoglobin A1c Calcium Phosphorus Magnesium Total Bilirubin AST ALT Alkaline Phosphatase Total Protein Albumin Globulin Albumin/Globulin Ratio Arterial Blood Potassium 4.3 Attending/Attestation - Attestation I have personally seen and examined this patient.: Yes I have fully participated in the care of the patient.: Yes I have reviewed all pertinent clinical information: Yes Notes (Text): 07/15/17 16:43 I have seen and examined the patient. Medical records, lab studies, and imaging were reviewed by me and a management plan was formulated on multidisciplinary rounds with resident Dr. Herrera. I agree with their documented assessment and plan. Patient has RUL pneumonia, continue Cefepime and Azithromycin. Symptomatic tx with duonebs, chest pt, humidified air, mucinex. Metabolic acidosis started on 1/2NS+75SB@125. Oliguric acute renal failure, improving with fluid resuscitation. Critical Care Time 35 minutes. Multi-disciplinary rounds were performed with house staff, nursing, speech therapy, respiratory therapy, pharmacy and nutrition with integrated input from the primary team/attending and other consulting services. The documented time is cumulative and includes review of patient data/exams/labs/chart review and examination of the patient on rounds and throughout the day; time is exclusive of any procedures or teaching time. 07/15/17 16:44 <Gita Herrera - Last Filed: 07/15/17 18:15> History of Present Illness - History of Present Illness History of Present Illness: This 76 y/o male with a PMHx of anemia, bronchitis, HTN, HLD, CKD - presented to the ED c/o SOB for the past 3 days. Patient found to have RUL pneumonia. ICU consulted for evaluation and treatment of RUL PNA, metabolic Acidosis, Oliguric acute renal failure ROS POSITIVE: SOB NEGATIVE: Fever, Chills, Headache, Abdominal Pain, changes in bowel habits or urinary symptoms. PMHx: anemia, bronchitis, HTN, HLD, CKD PSHx: CABG '97 ([facility]) Meds: see EMR Allergies: chicken Social: Denies tobacco (quit many years ago), denies ETOH, denies illicit drug use. lives at home; retired. Review of Systems - Review of Systems All systems: reviewed and no additional remarkable complaints except (As per HPI ) Past Patient History - Past Medical History & Family History Past Medical History?: Yes - Past Social History Smoking Status: Former Smoker - CARDIAC Hx Hypercholesterolemia: Yes Hx Hypertension: Yes Hx Pacemaker: No - PULMONARY Hx Bronchitis: Yes - NEUROLOGICAL Hx Paralysis: No - HEENT Hx Cataracts: Yes (B/L x 5 yrs ago) Other/Comment: chronic L ear pain - RENAL Hx Chronic Kidney Disease: Yes - ENDOCRINE/METABOLIC Hx Diabetes Mellitus Type 2: Yes - HEMATOLOGICAL/ONCOLOGICAL Hx Anemia: Yes - INTEGUMENTARY Hx Dermatological Problems: Yes Other/Comment: vetiligo both hands,christofer. elbows,both shins - MUSCULOSKELETAL/RHEUMATOLOGICAL Hx Musculoskeletal Disorders: Yes Hx Falls: No - GASTROINTESTINAL Hx Gall Bladder Disease: Yes - PSYCHIATRIC Hx Substance Use: No - SURGICAL HISTORY Hx Cholecystectomy: Yes Hx Coronary Artery Bypass Graft: Yes (1996(@[facility])) - ANESTHESIA Hx Anesthesia: Yes Hx Anesthesia Reactions: No Hx Malignant Hyperthermia: No Meds - Medications Medications: Current Medications Acetaminophen (Tylenol 325mg Tab) 650 mg PO Q6 PRN PRN Reason: Fever >100.4 F Last Admin: 07/14/17 22:26 Dose: 650 mg Amlodipine Besylate (Norvasc) 10 mg PO DAILY [facility] Last Admin: 07/14/17 19:16 Dose: 10 mg Carvedilol (Coreg) 25 mg PO BID [facility] Last Admin: 07/14/17 19:15 Dose: 25 mg Clopidogrel Bisulfate (Plavix) 75 mg PO DAILY [facility] Famotidine (Pepcid) 20 mg PO DAILY [facility] Gabapentin (Neurontin) 600 mg PO TID [facility] Last Admin: 07/14/17 19:15 Dose: 600 mg Guaifenesin (Mucinex La) 600 mg PO BID [facility] Last Admin: 07/14/17 22:10 Dose: 600 mg Heparin Sodium (Porcine) (Heparin) 5,000 units SC Q8 [facility] Last Admin: 07/15/17 05:40 Dose: 5,000 units Azithromycin 500 mg/ Sodium (Chloride) 250 mls @ 250 mls/hr IVPB DAILY [facility] PRN Reason: Protocol Sodium Chloride (Sodium Chloride 0.9%) 1,000 mls @ 100 mls/hr IV .Q10H [facility] Last Admin: 07/15/17 03:15 Dose: 100 mls/hr Cefepime HCl 0.5 gm/ Sodium (Chloride) 50 mls @ 100 mls/hr IVPB Q12 [facility] PRN Reason: Protocol Vancomycin/Sodium Chloride (Vancomycin 1 Gm/Ns 200 Ml) 1 gm in 200 mls @ 133 mls/hr IVPB ONCE ONE PRN Reason: Protocol Stop: 07/15/17 10:30 Sodium Bicarbonate 75 meq/ (Sodium Chloride) 1,000 mls @ 125 mls/hr IV .Q8H [facility] Calcium Gluconate 4.65 meq/ (Sodium Chloride) 110 mls @ 100 mls/hr IV ONCE ONE Stop: 07/15/17 09:16 Insulin Aspart (Novolog) 0 unit SC ACHS [facility] PRN Reason: Protocol Last Admin: 07/15/17 08:14 Dose: Not Given Insulin Glargine (Lantus) 15 unit SC [facility] Last Admin: 07/14/17 22:12 Dose: 15 units Oxycodone/Acetaminophen (Percocet 5/325 Mg Tab) 2 tab PO Q4H PRN PRN Reason: Pain, severe (8-10) Stop: 07/17/17 18:54 Last Admin: 07/14/17 19:16 Dose: 2 tab Rosuvastatin Calcium (Crestor) 5 mg PO [facility] Last Admin: 07/14/17 22:10 Dose: 5 mg Physical Exam - Constitutional Appears: Toxic - Head Exam Head Exam: ATRAUMATIC, NORMAL INSPECTION, NORMOCEPHALIC - Eye Exam Eye Exam: EOMI, Normal appearance - ENT Exam ENT Exam: Mucous Membranes Moist - Respiratory Exam Respiratory Exam: Accessory Muscle Use, Wheezes. absent: Clear to Auscultation Bilateral - Cardiovascular Exam Cardiovascular Exam: RRR, +S1, +S2 - GI/Abdominal Exam GI & Abdominal Exam: Soft. absent: Tenderness - Neurological Exam Neurological exam: Alert, Oriented x3 - Skin Skin Exam: Normal Color, Warm Results - Vital Signs Recent Vital Signs: Last Vital Signs Temp 98.4 F 07/15/17 07:30 Pulse 84 07/15/17 07:30 Resp 20 07/15/17 07:30 BP 127/81 07/15/17 07:30 Pulse Ox 95 07/15/17 07:30 - Labs Result Diagrams: 07/15/17 07:14 07/15/17 07:14 Labs: Laboratory Results - last 24 hr 07/14/17 07/14/17 07/14/17 14:14 14:48 14:48 WBC 16.4 H D RBC 4.12 L Hgb 12.6 Hct 37.6 MCV 91.2 MCH 30.5 MCHC 33.4 RDW 15.3 H Plt Count 116 L D MPV 11.1 Neut % (Auto) Lymph % (Auto) [place] % (Auto) Eos % (Auto) Baso % (Auto) Neut # (Auto) Lymph # (Auto) [place] # (Auto) Eos # (Auto) Baso # (Auto) Neutrophils % (Manual) 74 Band Neutrophils % 15 H* Lymphocytes % (Manual) 8 L Monocytes % (Manual) 3 Eosinophils % (Manual) TEST NOT PERFORMED Myelocytes % TEST NOT PERFORMED Platelet Estimate Slightly decreased L Hypochromasia (manual) Slight Microcytosis (manual) Slight Ovalocytes Slight APTT Puncture Site pCO2 pO2 HCO3 ABG pH ABG Total CO2 ABG O2 Saturation ABG Base Excess Warner Test ABG Potassium VBG pH VBG pCO2 VBG HCO3 VBG Total CO2 VBG O2 Sat (Calc) VBG Base Excess VBG Potassium Glucose Lactate Liter Flow Sodium 142 Potassium 4.2 Chloride 106 Carbon Dioxide 22 Anion Gap 17 BUN 48 H Creatinine 2.7 H Est GFR ( Amer) 28 Est GFR (Non-Af Amer) 23 POC Glucose (mg/dL) 275 H Random Glucose 318 H Calcium 8.9 Phosphorus Magnesium Total Bilirubin 1.5 H AST 14 L D ALT 21 Alkaline Phosphatase 99 Troponin I 0.0570 Total Protein 6.5 Albumin 3.3 L Globulin 3.1 Albumin/Globulin Ratio 1.1 Lipase 103 Arterial Blood Potassium Venous Blood Potassium Urine Color Urine Clarity Urine pH Ur Specific Horace Urine Protein Urine Glucose (UA) Urine Ketones Urine Blood Urine Nitrate Urine Bilirubin Urine Urobilinogen Ur Leukocyte Esterase Urine WBC (Auto) Urine RBC (Auto) Amorphous Sediment Urine Bacteria 07/14/17 07/14/17 07/14/17 14:52 15:44 21:30 WBC RBC Hgb Hct MCV MCH MCHC RDW Plt Count MPV Neut % (Auto) Lymph % (Auto) [place] % (Auto) Eos % (Auto) Baso % (Auto) Neut # (Auto) Lymph # (Auto) [place] # (Auto) Eos # (Auto) Baso # (Auto) Neutrophils % (Manual) Band Neutrophils % Lymphocytes % (Manual) Monocytes % (Manual) Eosinophils % (Manual) Myelocytes % Platelet Estimate Hypochromasia (manual) Microcytosis (manual) Ovalocytes APTT Puncture Site pCO2 pO2 33 HCO3 ABG pH ABG Total CO2 ABG O2 Saturation ABG Base Excess Warner Test ABG Potassium VBG pH 7.37 VBG pCO2 41 VBG HCO3 22.8 VBG Total CO2 25.0 VBG O2 Sat (Calc) 66.6 H VBG Base Excess -1.5 L VBG Potassium 4.3 Glucose 354 H Lactate 1.6 Liter Flow Sodium 139.0 Potassium Chloride 105.0 Carbon Dioxide Anion Gap BUN Creatinine Est GFR ( Amer) Est GFR (Non-Af Amer) POC Glucose (mg/dL) 327 H Random Glucose Calcium Phosphorus Magnesium Total Bilirubin AST ALT Alkaline Phosphatase Troponin I Total Protein Albumin Globulin Albumin/Globulin Ratio Lipase Arterial Blood Potassium Venous Blood Potassium 4.3 Urine Color Yellow Urine Clarity Clear Urine pH 5.0 Ur Specific Horace 1.011 Urine Protein 2+ H Urine Glucose (UA) 3+ H Urine Ketones Negative Urine Blood 1+ H Urine Nitrate Negative Urine Bilirubin Negative Urine Urobilinogen Normal Ur Leukocyte Esterase Neg Urine WBC (Auto) 2 Urine RBC (Auto) 6 H Amorphous Sediment Occ H Urine Bacteria Rare 07/14/17 07/15/17 07/15/17 23:50 01:37 02:18 WBC RBC Hgb Hct MCV MCH MCHC RDW Plt Count MPV Neut % (Auto) Lymph % (Auto) [place] % (Auto) Eos % (Auto) Baso % (Auto) Neut # (Auto) Lymph # (Auto) [place] # (Auto) Eos # (Auto) Baso # (Auto) Neutrophils % (Manual) Band Neutrophils % Lymphocytes % (Manual) Monocytes % (Manual) Eosinophils % (Manual) Myelocytes % Platelet Estimate Hypochromasia (manual) Microcytosis (manual) Ovalocytes APTT Puncture Site R rad pCO2 39 pO2 80 HCO3 18.3 L ABG pH 7.27 L ABG Total CO2 19.1 L ABG O2 Saturation 98.8 H ABG Base Excess -8.4 L Warner Test Pos ABG Potassium 4.9 VBG pH VBG pCO2 VBG HCO3 VBG Total CO2 VBG O2 Sat (Calc) VBG Base Excess VBG Potassium Glucose 347 H Lactate 2.1 Liter Flow 5.0 Sodium 137.0 Potassium Chloride 112.0 H Carbon Dioxide Anion Gap BUN Creatinine Est GFR ( Amer) Est GFR (Non-Af Amer) POC Glucose (mg/dL) 329 H 311 H Random Glucose Calcium Phosphorus Magnesium Total Bilirubin AST ALT Alkaline Phosphatase Troponin I Total Protein Albumin Globulin Albumin/Globulin Ratio Lipase Arterial Blood Potassium 4.9 Venous Blood Potassium Urine Color Urine Clarity Urine pH Ur Specific Horace Urine Protein Urine Glucose (UA) Urine Ketones Urine Blood Urine Nitrate Urine Bilirubin Urine Urobilinogen Ur Leukocyte Esterase Urine WBC (Auto) Urine RBC (Auto) Amorphous Sediment Urine Bacteria 07/15/17 07/15/17 07/15/17 07:14 07:14 07:14 WBC 18.6 H RBC 3.82 L Hgb 11.6 L Hct 35.6 MCV 93.0 MCH 30.3 MCHC 32.6 L RDW 15.9 H Plt Count 94 L D MPV 11.2 Neut % (Auto) 89.9 H Lymph % (Auto) 4.7 L [place] % (Auto) 4.8 Eos % (Auto) 0.3 Baso % (Auto) 0.3 Neut # (Auto) 16.8 H Lymph # (Auto) 0.9 L [place] # (Auto) 0.9 H Eos # (Auto) 0.0 Baso # (Auto) 0.0 Neutrophils % (Manual) Band Neutrophils % Lymphocytes % (Manual) Monocytes % (Manual) Eosinophils % (Manual) Myelocytes % Platelet Estimate Hypochromasia (manual) Microcytosis (manual) Ovalocytes APTT 40 H Puncture Site pCO2 pO2 HCO3 ABG pH ABG Total CO2 ABG O2 Saturation ABG Base Excess Warner Test ABG Potassium VBG pH VBG pCO2 VBG HCO3 VBG Total CO2 VBG O2 Sat (Calc) VBG Base Excess VBG Potassium Glucose Lactate Liter Flow Sodium 139 Potassium 6.0 H Chloride 110 H Carbon Dioxide 18 L Anion Gap 17 BUN 50 H Creatinine 3.4 H Est GFR ( Amer) 21 Est GFR (Non-Af Amer) 18 POC Glucose (mg/dL) Random Glucose 290 H Calcium 7.8 L Phosphorus 5.9 H Magnesium 1.5 L Total Bilirubin 0.9 AST 14 L ALT 14 L D Alkaline Phosphatase 71 Troponin I Total Protein 5.7 L Albumin 2.9 L Globulin 2.8 Albumin/Globulin Ratio 1.0 Lipase Arterial Blood Potassium Venous Blood Potassium Urine Color Urine Clarity Urine pH Ur Specific Horace Urine Protein Urine Glucose (UA) Urine Ketones Urine Blood Urine Nitrate Urine Bilirubin Urine Urobilinogen Ur Leukocyte Esterase Urine WBC (Auto) Urine RBC (Auto) Amorphous Sediment Urine Bacteria 07/15/17 07/15/17 07:19 07:20 WBC RBC Hgb Hct MCV MCH MCHC RDW Plt Count MPV Neut % (Auto) Lymph % (Auto) [place] % (Auto) Eos % (Auto) Baso % (Auto) Neut # (Auto) Lymph # (Auto) [place] # (Auto) Eos # (Auto) Baso # (Auto) Neutrophils % (Manual) Band Neutrophils % Lymphocytes % (Manual) Monocytes % (Manual) Eosinophils % (Manual) Myelocytes % Platelet Estimate Hypochromasia (manual) Microcytosis (manual) Ovalocytes APTT Puncture Site Rb pCO2 29 L pO2 75 L HCO3 15.3 L ABG pH 7.27 L ABG Total CO2 14.2 L ABG O2 Saturation 97.3 ABG Base Excess -12.2 L Warner Test Na ABG Potassium 4.3 VBG pH VBG pCO2 VBG HCO3 VBG Total CO2 VBG O2 Sat (Calc) VBG Base Excess VBG Potassium Glucose 256 H Lactate 1.3 Liter Flow 3.0 Sodium 142.0 Potassium Chloride 116.0 H Carbon Dioxide Anion Gap BUN Creatinine Est GFR ( Amer) Est GFR (Non-Af Amer) POC Glucose (mg/dL) 313 H Random Glucose Calcium Phosphorus Magnesium Total Bilirubin AST ALT Alkaline Phosphatase Troponin I Total Protein Albumin Globulin Albumin/Globulin Ratio Lipase Arterial Blood Potassium 4.3 Venous Blood Potassium Urine Color Urine Clarity Urine pH Ur Specific Horace Urine Protein Urine Glucose (UA) Urine Ketones Urine Blood Urine Nitrate Urine Bilirubin Urine Urobilinogen Ur Leukocyte Esterase Urine WBC (Auto) Urine RBC (Auto) Amorphous Sediment Urine Bacteria Assessment & Plan - Assessment and Plan (Free Text) Assessment: This 76 y/o male with a PMHx of anemia, bronchitis, HTN, HLD, CKD - presented to the ED c/o SOB for the past 3 days. Patient found to have RUL pneumonia. ICU consulted for evaluation and treatment of RUL PNA, metabolic Acidosis, and Oliguric acute renal failure. Plan: Neuro: GCS 15 Sedation: N/A Cardio A: HTN/HLD Carvedilol BID Cont. Crestor/Plavix Pulm A: RUL PNA DuoNebs Q4H [facility] PRN Albuterol Chest PT Mucinex 600 PO BID High Humidity 02 GI No Active Issues at this time Nephro/Elecotrolytes A: Oliguria, Metabolic Acidosis, HyperKalemia, Hypomagnesemia, HypoCalcemia, HyperPhosphatemia Insulin and Calcium Gluconate, Kayexalate NaHCO3 in 1/2 NS @ 125mls/hr Heme/Onc A: Anemia HgB 11.6 after fluids Cont. to Monitor HgB ID A: PNA, Leukocytosis Azithromycin/Cefipime Blood/Urine Cultures NEGATIVE PRN Tylenol Endo A: DM II [id number] Regular ISS Lantus 15 HS Proph Heparin No indication for GI Proph Patient seen and examined with ICU Attending Gita Herrera, PGY-1
[2017-07-15 08:50] LABS: BANDS 19 % (0-2); LYMPHOCYTE 1 % (20-40); METAMYELOCYTE 3 % (0-0); MONOCYTE 2 % (0-10); MYELOCYTE 1 % (0-0); NUCLEATED RED BLOOD CELL 1 % (0-0); PLATELET ESTIMATE DECREASED (NORMAL); TOTAL CELLS COUNTED 100
[2017-07-15 08:51] LABS: ANISOCYTOSIS SLIGHT; TOXIC GRANULATION PRESENT
[2017-07-15 08:52] LABS: NEUTROPHIL 74 % (50-75)
[2017-07-15] MEDS ORDERED: Vancomycin 1 gm/NS 200 ml 1 GM/200 ML BAG IVPB ONE (09:00)
[2017-07-15] MEDS: Sodium Bicarbonate 8.4% 75 MEQ in Sodium Chloride 0.45% 925 ML IV SCH ×2 (09:15→17:26)
[2017-07-15] MEDS: Oxycodone/Acetaminophen 5/325 mg Tab PO PRN (09:48)
[2017-07-15] MEDS: Azithromycin 500 MG in Sodium Chloride 0.9% 250 ML IVPB SCH (09:55)
[2017-07-15] MEDS ORDERED: Dextrose 50% SYRINGE Inj (50 ml) IV ONE (10:00)
[2017-07-15] MEDS ORDERED: guaiFENesin 200 mg/10 ml Syrup UD PO SCH (10:30)
[2017-07-15] MEDS ORDERED: Sod Polystyrene Sulf 15 gm/60 ml Susp PO ONE (10:31)
[2017-07-15] MEDS: Albuterol-Ipratrop 3 mg / 0.5 (3 ml) UD INH SCH ×3 (11:24→20:06)
[2017-07-15] MEDS: guaiFENesin 600 mg ER Tab PO SCH ×2 (11:31→17:31)
--- NOTE | 2017-07-15 12:28 | CP.PCM.CON ---
History of Present Illness - History of Present Illness History of Present Illness: Nephrology Consultation Note Assesemnt: Critical RUL pneumonia with septic shock HAGMA with hyperkalemia, hyperphosphatemia CHARLEE on CKD stage 4 likely hemodynamic ? 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 hold ACEI/ARB due to hyperkalemia renal replacement therapy will be deferred at this time but if pt has refractory hyperkalemia then will need it. continue with IVF Monitor Input/Output, daily weights and renal function with basic metabolic panel d/c neurontin to avoid neurotoxicity in severe CHARLEE resume supplement Vit D 1000/day and continue iron tab 325 mg TID with meals once pt stable. can defer for now. Dose meds/antibiotics for reduced GFR. Avoid fleets enema/magnesium based laxatives. Avoid nephrotoxins/NSAIDs/ iodinated contrast (unless needed emergently) Glycemic control Further work up/management as per primary team Thanks for allowing me to participate in care of your patient. Will follow patient with you. Please call if any Qs. had d/w team and Dr CorderoRonentushar [place] Office: [phone] CC: shortness of breath and Pneumonia reason for consult: CHARLEE HPI: He is a 76 y/o M hx of CAD s/p CABG, DM, HTN since 2006, MPO ANCA vasculitis s/p kidney [place] [facility] [place] He had completed 4 doses of rituxan on oct 08 2016 with remission of renal vasculitis but has CKD stage 3/ 4 (baseline cr 2.3-2.4) recent removal of lump from Rt upper arm at [facility] came with SOB x 1 day and found to have RUL pneumonia with septic shock , renal consult for CHARLEE he feels bit better. still has SOB and cough. has monahan catheter ROS: Cardiovascular: No chest pain. Pulmonary: c/o shortness of breath Gastrointestinal: denies abdominal pain No nausea. No vomiting. Genitourinary: No pain while urinating. Denies blood in urine. Rest all other negative except as mentioned in HPI exam: General Appearance: Comfortable, in no acute respiratory distress, co- operative . ill appearing Vitals reviewed and noted Head; Atraumatic, normocephalic ENT: no ulcers no thrush. Tongue is midline. Oropharynx: no rash or ulcers. EYES: Pupils are equal, round and reactive to light accommodation. Eye muscles and extraocular movement intact. Sclera is anicteric. Neck; supple no lymphadenopathy, no thyromegaly or bruit Lungs: Increased respiratory rate/effort. Breath sounds bilateral + with Rt side rales/crackle Heart: Normal rate. s1s2 normal. No rub or gallop. Extremities: no edema. No varicose veins Neurological: Patient is alert, awake and oriented to person, place and time. No focal deficit. Strength bilateral appropriate and equal Skin: Warm and dry. Normal turgor. has vitiligo. Palpitation: Normal elasticity for age Abdomen: Abdomen is soft. Bowel sounds +. There is no abdominal tenderness, no guarding/rigidity or organomegaly Psych: normal insight and normal affect/mood MSK: no joint tenderness or swelling. Digits and nails normal, no deformity. has firm swelling over Rt humerus, mobile ? lipoma : kidney or bladder not palpable Labs/imaging reviewed. Past medical history, past surgical history, family history, social history, allergy reviewed and noted as below Family hx: no hx of CKD. 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 Interstitial hemorrhage, RBC with casts in tubules, thyroidization of tubules, arterial intimal thickening and mild interstitial fibrosis. No glomerulus for IF or EM. 03/12/17: UA 30 protein no blood. pr/cr 245 mg/gr Ferritin 51 TSAT 30% PTH 178 Vit D 31 NA 145 K 4.4 Bicarb 23 BUN/Cr 39/3.1 Ca 9.2 GLucose 94 04/12/17: MPO titer >1:640, Sodium 146 potassium 4.4 bicarbonate 27 BU and 36 creatinine 2.3 MDRD GFR 30 Hemoglobin 12 UA no blood had 30 protein ratio of pr/ cr 245 mg/g of creatinine 06/09/17: UA 30 protein no blood but pr/cr ratio of 1031 mg/gr microalbumin >300 NA 144 K 5.1 BUN 39 cr 2.4 bicarb 22 (GFR 28) K 5.1 Hb 11.6 Past Patient History - Past Medical History & Family History Past Medical History?: Yes - Past Social History Smoking Status: Former Smoker - CARDIAC Hx Hypercholesterolemia: Yes Hx Hypertension: Yes Hx Pacemaker: No - PULMONARY Hx Bronchitis: Yes - NEUROLOGICAL Hx Paralysis: No - HEENT Hx Cataracts: Yes (B/L x 5 yrs ago) Other/Comment: chronic L ear pain - RENAL Hx Chronic Kidney Disease: Yes - ENDOCRINE/METABOLIC Hx Diabetes Mellitus Type 2: Yes - HEMATOLOGICAL/ONCOLOGICAL Hx Anemia: Yes - INTEGUMENTARY Hx Dermatological Problems: Yes Other/Comment: vetiligo both hands,christofer. elbows,both shins - MUSCULOSKELETAL/RHEUMATOLOGICAL Hx Musculoskeletal Disorders: Yes Hx Falls: No - GASTROINTESTINAL Hx Gall Bladder Disease: Yes - PSYCHIATRIC Hx Substance Use: No - SURGICAL HISTORY Hx Cholecystectomy: Yes Hx Coronary Artery Bypass Graft: Yes (1996(@[facility])) - ANESTHESIA Hx Anesthesia: Yes Hx Anesthesia Reactions: No Hx Malignant Hyperthermia: No Meds Allergies/Adverse Reactions: Allergies Allergy/AdvReac Type Severity Reaction Status Date / Time chicken derived AdvReac Severe VOMITING Verified 06/16/17 08:37 - Medications Medications: Current Medications Acetaminophen (Tylenol 325mg Tab) 650 mg PO Q6 PRN PRN Reason: Fever >100.4 F Last Admin: 07/14/17 22:26 Dose: 650 mg Albuterol/Ipratropium (Duoneb 3 Mg/0.5 Mg (3 Ml) Ud) 3 ml INH RQ4 [facility] Last Admin: 07/15/17 11:24 Dose: 3 ml Carvedilol (Coreg) 25 mg PO BID [facility] Last Admin: 07/15/17 11:29 Dose: 25 mg Clopidogrel Bisulfate (Plavix) 75 mg PO DAILY [facility] Last Admin: 07/15/17 09:48 Dose: 75 mg Guaifenesin (Mucinex La) 600 mg PO BID [facility] Last Admin: 07/15/17 11:31 Dose: 600 mg Guaifenesin (Robitussin) 200 mg PO BID [facility] Heparin Sodium (Porcine) (Heparin) 5,000 units SC Q8 [facility] Last Admin: 07/15/17 05:40 Dose: 5,000 units Azithromycin 500 mg/ Sodium (Chloride) 250 mls @ 250 mls/hr IVPB DAILY [facility] PRN Reason: Protocol Last Admin: 07/15/17 09:55 Dose: 250 mls/hr Sodium Chloride (Sodium Chloride 0.9%) 1,000 mls @ 100 mls/hr IV .Q10H [facility] Last Admin: 07/15/17 03:15 Dose: 100 mls/hr Cefepime HCl 0.5 gm/ Sodium (Chloride) 50 mls @ 100 mls/hr IVPB Q12 [facility] PRN Reason: Protocol Sodium Bicarbonate 75 meq/ (Sodium Chloride) 1,000 mls @ 125 mls/hr IV .Q8H [facility] Last Admin: 07/15/17 09:15 Dose: 125 mls/hr Insulin Aspart (Novolog) 0 unit SC [facility] PRN Reason: Protocol Last Admin: 07/15/17 08:14 Dose: Not Given Insulin Glargine (Lantus) 15 unit SC [facility] Last Admin: 07/14/17 22:12 Dose: 15 units Oxycodone/Acetaminophen (Percocet 5/325 Mg Tab) 2 tab PO Q4H PRN PRN Reason: Pain, severe (8-10) Stop: 07/17/17 18:54 Last Admin: 07/15/17 09:48 Dose: 2 tab Rosuvastatin Calcium (Crestor) 5 mg PO [facility] Last Admin: 07/14/17 22:10 Dose: 5 mg Results - Vital Signs Recent Vital Signs: Last Vital Signs Temp 98.4 F 07/15/17 07:30 Pulse 84 07/15/17 07:30 Resp 20 07/15/17 07:30 BP 118/69 07/15/17 11:29 Pulse Ox 95 07/15/17 07:30 - Labs Result Diagrams: 07/15/17 07:14 07/15/17 07:14 Labs: Laboratory Results - last 24 hr 07/14/17 07/14/17 07/14/17 14:14 14:48 14:48 WBC 16.4 H D RBC 4.12 L Hgb 12.6 Hct 37.6 MCV 91.2 MCH 30.5 MCHC 33.4 RDW 15.3 H Plt Count 116 L D MPV 11.1 Neut % (Auto) Lymph % (Auto) [place] % (Auto) Eos % (Auto) Baso % (Auto) Neut # (Auto) Lymph # (Auto) [place] # (Auto) Eos # (Auto) Baso # (Auto) Neutrophils % (Manual) 74 Band Neutrophils % 15 H* Lymphocytes % (Manual) 8 L Monocytes % (Manual) 3 Eosinophils % (Manual) TEST NOT PERFORMED Metamyelocytes % Myelocytes % TEST NOT PERFORMED Nucleated RBC % Toxic Granulation Dohle Bodies Platelet Estimate Slightly decreased L Hypochromasia (manual) Slight Anisocytosis (manual) Microcytosis (manual) Slight Ovalocytes Slight APTT Puncture Site pCO2 pO2 HCO3 ABG pH ABG Total CO2 ABG O2 Saturation ABG Base Excess Warner Test ABG Potassium VBG pH VBG pCO2 VBG HCO3 VBG Total CO2 VBG O2 Sat (Calc) VBG Base Excess VBG Potassium Glucose Lactate Liter Flow Sodium 142 Potassium 4.2 Chloride 106 Carbon Dioxide 22 Anion Gap 17 BUN 48 H Creatinine 2.7 H Est GFR ( Amer) 28 Est GFR (Non-Af Amer) 23 POC Glucose (mg/dL) 275 H Random Glucose 318 H Hemoglobin A1c Calcium 8.9 Phosphorus Magnesium Total Bilirubin 1.5 H AST 14 L D ALT 21 Alkaline Phosphatase 99 Troponin I 0.0570 Total Protein 6.5 Albumin 3.3 L Globulin 3.1 Albumin/Globulin Ratio 1.1 Lipase 103 Arterial Blood Potassium Venous Blood Potassium Urine Color Urine Clarity Urine pH Ur Specific Jakin Urine Protein Urine Glucose (UA) Urine Ketones Urine Blood Urine Nitrate Urine Bilirubin Urine Urobilinogen Ur Leukocyte Esterase Urine WBC (Auto) Urine RBC (Auto) Amorphous Sediment Urine Bacteria 07/14/17 07/14/17 07/14/17 14:52 15:44 21:30 WBC RBC Hgb Hct MCV MCH MCHC RDW Plt Count MPV Neut % (Auto) Lymph % (Auto) [place] % (Auto) Eos % (Auto) Baso % (Auto) Neut # (Auto) Lymph # (Auto) [place] # (Auto) Eos # (Auto) Baso # (Auto) Neutrophils % (Manual) Band Neutrophils % Lymphocytes % (Manual) Monocytes % (Manual) Eosinophils % (Manual) Metamyelocytes % Myelocytes % Nucleated RBC % Toxic Granulation Dohle Bodies Platelet Estimate Hypochromasia (manual) Anisocytosis (manual) Microcytosis (manual) Ovalocytes APTT Puncture Site pCO2 pO2 33 HCO3 ABG pH ABG Total CO2 ABG O2 Saturation ABG Base Excess Warner Test ABG Potassium VBG pH 7.37 VBG pCO2 41 VBG HCO3 22.8 VBG Total CO2 25.0 VBG O2 Sat (Calc) 66.6 H VBG Base Excess -1.5 L VBG Potassium 4.3 Glucose 354 H Lactate 1.6 Liter Flow Sodium 139.0 Potassium Chloride 105.0 Carbon Dioxide Anion Gap BUN Creatinine Est GFR ( Amer) Est GFR (Non-Af Amer) POC Glucose (mg/dL) 327 H Random Glucose Hemoglobin A1c Calcium Phosphorus Magnesium Total Bilirubin AST ALT Alkaline Phosphatase Troponin I Total Protein Albumin Globulin Albumin/Globulin Ratio Lipase Arterial Blood Potassium Venous Blood Potassium 4.3 Urine Color Yellow Urine Clarity Clear Urine pH 5.0 Ur Specific Jakin 1.011 Urine Protein 2+ H Urine Glucose (UA) 3+ H Urine Ketones Negative Urine Blood 1+ H Urine Nitrate Negative Urine Bilirubin Negative Urine Urobilinogen Normal Ur Leukocyte Esterase Neg Urine WBC (Auto) 2 Urine RBC (Auto) 6 H Amorphous Sediment Occ H Urine Bacteria Rare 07/14/17 07/15/17 07/15/17 23:50 01:37 02:18 WBC RBC Hgb Hct MCV MCH MCHC RDW Plt Count MPV Neut % (Auto) Lymph % (Auto) [place] % (Auto) Eos % (Auto) Baso % (Auto) Neut # (Auto) Lymph # (Auto) [place] # (Auto) Eos # (Auto) Baso # (Auto) Neutrophils % (Manual) Band Neutrophils % Lymphocytes % (Manual) Monocytes % (Manual) Eosinophils % (Manual) Metamyelocytes % Myelocytes % Nucleated RBC % Toxic Granulation Dohle Bodies Platelet Estimate Hypochromasia (manual) Anisocytosis (manual) Microcytosis (manual) Ovalocytes APTT Puncture Site R rad pCO2 39 pO2 80 HCO3 18.3 L ABG pH 7.27 L ABG Total CO2 19.1 L ABG O2 Saturation 98.8 H ABG Base Excess -8.4 L Warner Test Pos ABG Potassium 4.9 VBG pH VBG pCO2 VBG HCO3 VBG Total CO2 VBG O2 Sat (Calc) VBG Base Excess VBG Potassium Glucose 347 H Lactate 2.1 Liter Flow 5.0 Sodium 137.0 Potassium Chloride 112.0 H Carbon Dioxide Anion Gap BUN Creatinine Est GFR ( Amer) Est GFR (Non-Af Amer) POC Glucose (mg/dL) 329 H 311 H Random Glucose Hemoglobin A1c Calcium Phosphorus Magnesium Total Bilirubin AST ALT Alkaline Phosphatase Troponin I Total Protein Albumin Globulin Albumin/Globulin Ratio Lipase Arterial Blood Potassium 4.9 Venous Blood Potassium Urine Color Urine Clarity Urine pH Ur Specific Jakin Urine Protein Urine Glucose (UA) Urine Ketones Urine Blood Urine Nitrate Urine Bilirubin Urine Urobilinogen Ur Leukocyte Esterase Urine WBC (Auto) Urine RBC (Auto) Amorphous Sediment Urine Bacteria 07/15/17 07/15/17 07/15/17 07:14 07:14 07:14 WBC 18.6 H RBC 3.82 L Hgb 11.6 L Hct 35.6 MCV 93.0 MCH 30.3 MCHC 32.6 L RDW 15.9 H Plt Count 94 L D MPV 11.2 Neut % (Auto) 89.9 H Lymph % (Auto) 4.7 L [place] % (Auto) 4.8 Eos % (Auto) 0.3 Baso % (Auto) 0.3 Neut # (Auto) 16.8 H Lymph # (Auto) 0.9 L [place] # (Auto) 0.9 H Eos # (Auto) 0.0 Baso # (Auto) 0.0 Neutrophils % (Manual) 74 Band Neutrophils % 19 H* Lymphocytes % (Manual) 1 L Monocytes % (Manual) 2 Eosinophils % (Manual) Metamyelocytes % 3 H Myelocytes % 1 H Nucleated RBC % 1 H Toxic Granulation Present Dohle Bodies Present Platelet Estimate Decreased L Hypochromasia (manual) Anisocytosis (manual) Slight Microcytosis (manual) Ovalocytes APTT Puncture Site pCO2 pO2 HCO3 ABG pH ABG Total CO2 ABG O2 Saturation ABG Base Excess Warner Test ABG Potassium VBG pH VBG pCO2 VBG HCO3 VBG Total CO2 VBG O2 Sat (Calc) VBG Base Excess VBG Potassium Glucose Lactate Liter Flow Sodium 139 Potassium 6.0 H Chloride 110 H Carbon Dioxide 18 L Anion Gap 17 BUN 50 H Creatinine 3.4 H Est GFR ( Amer) 21 Est GFR (Non-Af Amer) 18 POC Glucose (mg/dL) Random Glucose 290 H Hemoglobin A1c 9.7 H Calcium 7.8 L Phosphorus 5.9 H Magnesium 1.5 L Total Bilirubin 0.9 AST 14 L ALT 14 L D Alkaline Phosphatase 71 Troponin I Total Protein 5.7 L Albumin 2.9 L Globulin 2.8 Albumin/Globulin Ratio 1.0 Lipase Arterial Blood Potassium Venous Blood Potassium Urine Color Urine Clarity Urine pH Ur Specific Jakin Urine Protein Urine Glucose (UA) Urine Ketones Urine Blood Urine Nitrate Urine Bilirubin Urine Urobilinogen Ur Leukocyte Esterase Urine WBC (Auto) Urine RBC (Auto) Amorphous Sediment Urine Bacteria 07/15/17 07/15/17 07/15/17 07:14 07:19 07:20 WBC RBC Hgb Hct MCV MCH MCHC RDW Plt Count MPV Neut % (Auto) Lymph % (Auto) [place] % (Auto) Eos % (Auto) Baso % (Auto) Neut # (Auto) Lymph # (Auto) [place] # (Auto) Eos # (Auto) Baso # (Auto) Neutrophils % (Manual) Band Neutrophils % Lymphocytes % (Manual) Monocytes % (Manual) Eosinophils % (Manual) Metamyelocytes % Myelocytes % Nucleated RBC % Toxic Granulation Dohle Bodies Platelet Estimate Hypochromasia (manual) Anisocytosis (manual) Microcytosis (manual) Ovalocytes APTT 40 H Puncture Site Rb pCO2 29 L pO2 75 L HCO3 15.3 L ABG pH 7.27 L ABG Total CO2 14.2 L ABG O2 Saturation 97.3 ABG Base Excess -12.2 L Warner Test Na ABG Potassium 4.3 VBG pH VBG pCO2 VBG HCO3 VBG Total CO2 VBG O2 Sat (Calc) VBG Base Excess VBG Potassium Glucose 256 H Lactate 1.3 Liter Flow 3.0 Sodium 142.0 Potassium Chloride 116.0 H Carbon Dioxide Anion Gap BUN Creatinine Est GFR ( Amer) Est GFR (Non-Af Amer) POC Glucose (mg/dL) 313 H Random Glucose Hemoglobin A1c Calcium Phosphorus Magnesium Total Bilirubin AST ALT Alkaline Phosphatase Troponin I Total Protein Albumin Globulin Albumin/Globulin Ratio Lipase Arterial Blood Potassium 4.3 Venous Blood Potassium Urine Color Urine Clarity Urine pH Ur Specific [place] Urine Protein Urine Glucose (UA) Urine Ketones Urine Blood Urine Nitrate Urine Bilirubin Urine Urobilinogen Ur Leukocyte Esterase Urine WBC (Auto) Urine RBC (Auto) Amorphous Sediment Urine Bacteria 07/15/17 11:37 WBC RBC Hgb Hct MCV MCH MCHC RDW Plt Count MPV Neut % (Auto) Lymph % (Auto) [place] % (Auto) Eos % (Auto) Baso % (Auto) Neut # (Auto) Lymph # (Auto) [place] # (Auto) Eos # (Auto) Baso # (Auto) Neutrophils % (Manual) Band Neutrophils % Lymphocytes % (Manual) Monocytes % (Manual) Eosinophils % (Manual) Metamyelocytes % Myelocytes % Nucleated RBC % Toxic Granulation Dohle Bodies Platelet Estimate Hypochromasia (manual) Anisocytosis (manual) Microcytosis (manual) Ovalocytes APTT Puncture Site pCO2 pO2 HCO3 ABG pH ABG Total CO2 ABG O2 Saturation ABG Base Excess Warner Test ABG Potassium VBG pH VBG pCO2 VBG HCO3 VBG Total CO2 VBG O2 Sat (Calc) VBG Base Excess VBG Potassium Glucose Lactate Liter Flow Sodium Potassium Chloride Carbon Dioxide Anion Gap BUN Creatinine Est GFR ( Amer) Est GFR (Non-Af Amer) POC Glucose (mg/dL) 229 H Random Glucose Hemoglobin A1c Calcium Phosphorus Magnesium Total Bilirubin AST ALT Alkaline Phosphatase Troponin I Total Protein Albumin Globulin Albumin/Globulin Ratio Lipase Arterial Blood Potassium Venous Blood Potassium Urine Color Urine Clarity Urine pH Ur Specific [place] Urine Protein Urine Glucose (UA) Urine Ketones Urine Blood Urine Nitrate Urine Bilirubin Urine Urobilinogen Ur Leukocyte Esterase Urine WBC (Auto) Urine RBC (Auto) Amorphous Sediment Urine Bacteria
[2017-07-15] MEDS ORDERED: Albuterol-Ipratrop 3 mg / 0.5 (3 ml) UD INH PRN (17:26)
[2017-07-15] MEDS ORDERED: Albuterol 0.083% Inhal Sol (2.5 mg/3 mL) UD INH PRN (18:00)
[2017-07-15 20:27] LABS: CALCIUM 7.9 mg/dl (8.6-10.4)
[2017-07-15] MEDS: (Lantus) Insulin Glargine, Recombinant SC SCH (21:28)
--- NOTE | 2017-07-15 22:17 | CARD ---
APPROVED REPORT EKG Measurement Heart [id number] <Conclusion> Sinus tachycardia Voltage criteria for left ventricular hypertrophy Abnormal ECG
[2017-07-16] MEDS: Albuterol-Ipratrop 3 mg / 0.5 (3 ml) UD INH SCH ×6 (00:02→21:48)
[2017-07-16] MEDS: Sodium Bicarbonate 8.4% 75 MEQ in Sodium Chloride 0.45% 925 ML IV SCH ×3 (02:44→21:04)
[2017-07-16 06:21] LABS: BASO % 0.2 % (0.0-2.0); EOS # 0.3 K/uL (0.0-0.7); EOS % 1.9 % (0.0-4.0); HEMOGLOBIN 10.5 g/dL (12.0-18.0); LYMPH # 1.2 K/uL (1.0-4.3); LYMPH % 6.8 % (20.0-40.0); MEAN CELL VOLUME 92.5 fL (80.0-94.0); MEAN CORPUSCULAR HEMOGLOBIN 30.7 pg (27.0-31.0); MEAN CORPUSCULAR HGB CONC 33.2 g/dL (33.0-37.0); MEAN PLATELET VOLUME 11.6 fL (7.2-11.7); MONO # 0.7 K/uL (0.0-0.8); MONO % 3.8 % (0.0-10.0); NEUT # 15.5 K/uL (1.8-7.0); NEUT % 87.3 % (50.0-75.0); NRBC % 0.1 % (0.0-2.0); PLATELET COUNT 77 K/uL (130-400); RBC 3.43 Mil/uL (4.40-5.90); RED CELL DISTRIBUTION WIDTH 16.2 % (11.5-14.5); WHITE BLOOD COUNT 17.8 K/uL (4.8-10.8)
[2017-07-16 06:40] LABS: ALB/GLOB RATIO 0.9 (1.0-2.1); ALBUMIN 2.7 g/dL (3.5-5.0); CALCIUM 8.5 mg/dl (8.6-10.4)
[2017-07-16] MEDS: (Novolog) Insulin Aspart, Recombinant 100 u/ml 10 ml vial SC SCH ×4 (07:30→21:41)
[2017-07-16 08:20] LABS: BANDS 26 % (0-2); EOSINOPHIL 1 % (0-4); LYMPHOCYTE 6 % (20-40); MONOCYTE 6 % (0-10); NEUTROPHIL 61 % (50-75); TOTAL CELLS COUNTED 100
[2017-07-16 08:21] LABS: ANISOCYTOSIS SLIGHT; HYPOCHROMIC SLIGHT; PLATELET ESTIMATE DECREASED (NORMAL); POIKILOCYTOSIS SLIGHT
[2017-07-16 08:22] LABS: LARGE PLATELETS PRESENT
--- NOTE | 2017-07-16 08:37 | HP ---
HISTORY OF PRESENT ILLNESS: A 76-year-old male who was admitted to the hospital with chief complaint of shortness of breath, cough, fever, weakness. The patient came to the ER, found to have large pneumonia, advised admission. PHYSICAL EXAMINATION: GENERAL: The patient is awake, alert, and oriented. VITAL SIGNS: Temperature 98, pulse 90. HEENT: Within normal limits. NECK: Supple. CHEST: Symmetrical. HEART: Regular. Respiratory rate increased to 20. ABDOMEN: Soft. EXTREMITIES: No edema. IMPRESSION: Pneumonia, diabetes. PLAN: The patient getting bed rest, IV antibiotics. Ricky Peralta MD
--- NOTE | 2017-07-16 09:20 | CP.CCUPN ---
<Gita Herrera - Last Filed: 07/16/17 15:40> CCU Subjective - Physician Review Subjective (Free Text): Patient has been seen and examined at bedside. No overnight events reported. Patient states his breathing has improved. Patient complains of not being able to cough up anything. Denies any fevers, chills, or chest pain. CCU Objective - Vital Signs / Intake & Output Vital Signs (Last 4 hours): Vital Signs Temp Pulse Resp BP Pulse Ox 07/16/17 08:00 99 F 99 07/16/17 07:30 84 20 98 07/16/17 07:00 82 20 99 07/16/17 06:00 81 16 98 07/16/17 05:53 137/70 Intake and Output (Last 8hrs): Intake & Output 07/15/17 07/16/17 07/16/17 22:59 06:59 14:59 Intake Total 1320 1150 250 Output Total 255 550 0 Balance 1065 600 250 Intake: Intake, IV Amount 1000 1000 250 Left Forearm 1000 1000 250 Oral 320 150 Output: Urine 255 550 Urethral (Mo) 255 550 Emesis 0 0 Other: # Bowel Movements 0 0 - Physical Exam Head: Positive for: Atraumatic, Normocephalic Extroacular Muscles: Positive for: EOMI Conjunctiva: Positive for: Normal Respiratory/Chest: Positive for: Clear to Auscultation, Decreased Breath Sounds Cardiovascular: Positive for: Regular Rate and Rhythm, Normal S1, S2 Abdomen: Positive for: Normal Bowel Sounds. Negative for: Tenderness Neurological: Positive for: GCS=15, Speech Normal - Medications Active Medications: Active Medications Generic Name Dose Route Start Last Admin Trade Name Freq PRN Reason Stop Dose Admin Acetaminophen 650 mg 07/14/17 20:00 07/15/17 23:39 Tylenol 325mg Tab PO 650 mg Q6 PRN Administration Fever >100.4 F Albuterol Sulfate 3 mg 07/15/17 18:00 Albuterol 0.083% Inhal Mishel (2.5 Mg/3 Ml) Ud INH RQ2 PRN Shortness of Breath Albuterol/Ipratropium 3 ml 07/15/17 12:00 07/16/17 08:00 Duoneb 3 Mg/0.5 Mg (3 Ml) Ud INH 3 ml RQ4 SHAWN Administration Carvedilol 25 mg 07/14/17 18:00 07/15/17 17:31 Coreg PO 25 mg BID [facility] Administration Clopidogrel Bisulfate 75 mg 07/15/17 10:00 07/15/17 09:48 Plavix PO 75 mg DAILY [facility] Administration Guaifenesin 600 mg 07/14/17 18:00 07/15/17 17:31 Mucinex La PO 600 mg BID [facility]N Administration Heparin Sodium (Porcine) 5,000 units 07/14/17 22:00 07/16/17 06:00 Heparin SC 5,000 units Q8 [facility] Administration Azithromycin 500 mg/ Sodium 250 mls @ 250 mls/hr 07/15/17 10:00 07/15/17 09: 55 Chloride IVPB 250 mls/hr DAILY [facility] Administration Protocol Cefepime HCl 0.5 gm/ Sodium 50 mls @ 100 mls/hr 07/15/17 10:00 07/15/17 21:29 Chloride IVPB 100 mls/hr Q12 [facility] Administration Protocol Sodium Bicarbonate 75 meq/ 1,000 mls @ 125 mls/hr 07/15/17 08:15 07/16/17 02: 44 Sodium Chloride IV 125 mls/hr .Q8H [facility]N Administration Insulin Aspart 0 unit 07/14/17 22:00 07/16/17 07:30 Novolog SC Not Given ACHS [facility] Protocol Insulin Glargine 15 unit 07/14/17 22:00 07/15/17 21:28 Lantus SC 15 units HS [facility]N Administration Oxycodone/Acetaminophen 2 tab 07/14/17 18:53 07/15/17 09:48 Percocet 5/325 Mg Tab PO 07/17/17 18:54 2 tab Q4H PRN Administration Pain, severe (8-10) Rosuvastatin Calcium 5 mg 07/14/17 22:00 07/15/17 21:27 Crestor PO 5 mg HS [facility] Administration - Patient Studies Lab Studies: Microbiology Studies 07/15/17 15:40 Gram Stain - Preliminary Sputum 07/14/17 14:15 Blood Culture - Preliminary Blood NO GROWTH AFTER 24 HOURS 07/14/17 14:45 Blood Culture - Preliminary Blood NO GROWTH AFTER 24 HOURS 07/14/17 15:44 Urine Culture - Final Urine,Clean Catch No Growth (<1,000 CFU/ML) Lab Studies 07/16/17 07/16/17 07/16/17 Range/Units 07:18 06:17 06:16 WBC 17.8 H (4.8-10.8) K/uL RBC 3.43 L (4.40-5.90) Mil/uL Hgb 10.5 L (12.0-18.0) g/dL Hct 31.7 L (35.0-51.0) % MCV 92.5 (80.0-94.0) fL MCH 30.7 (27.0-31.0) pg MCHC 33.2 (33.0-37.0) g/dL RDW 16.2 H (11.5-14.5) % Plt Count 77 L (130-400) K/uL MPV 11.6 (7.2-11.7) fL Neut % (Auto) 87.3 H (50.0-75.0) % Lymph % (Auto) 6.8 L (20.0-40.0) % Lucas % (Auto) 3.8 (0.0-10.0) % Eos % (Auto) 1.9 (0.0-4.0) % Baso % (Auto) 0.2 (0.0-2.0) % Neut # (Auto) 15.5 H (1.8-7.0) K/uL Lymph # (Auto) 1.2 (1.0-4.3) K/uL Lucas # (Auto) 0.7 (0.0-0.8) K/uL Eos # (Auto) 0.3 (0.0-0.7) K/uL Baso # (Auto) 0.0 (0.0-0.2) K/uL Neutrophils % (Manual) 61 (50-75) % Band Neutrophils % 26 H* (0-2) % Lymphocytes % (Manual) 6 L (20-40) % Monocytes % (Manual) 6 (0-10) % Eosinophils % (Manual) 1 (0-4) % Platelet Estimate Decreased L (NORMAL) Large Platelets Present Hypochromasia (manual) Slight Poikilocytosis (manual Slight Anisocytosis (manual) Slight Sodium 139 (132-148) mmol/L Potassium 4.3 (3.6-5.2) mmol/L Chloride 108 H (98-107) mmol/L Carbon Dioxide 21 L (22-30) mmol/L Anion Gap 14 (10-20) BUN 59 H (9-20) mg/dL Creatinine 3.1 H (0.8-1.5) mg/dL Est GFR ( Amer) 24 Est GFR (Non-Af Amer) 20 POC Glucose (mg/dL) 141 H (65-110) mg/dL Random Glucose 145 H (75-110) mg/dL Calcium 8.5 L (8.6-10.4) mg/dl Phosphorus 4.0 (2.5-4.5) mg/dL Magnesium 1.7 (1.6-2.3) mg/dL Total Bilirubin 1.0 (0.2-1.3) mg/dL AST 16 L (17-59) U/L ALT 18 L D (21-72) U/L Alkaline Phosphatase 78 (38-126) U/L Total Protein 5.6 L (6.3-8.3) g/dL Albumin 2.7 L (3.5-5.0) g/dL Globulin 2.9 (2.2-3.9) gm/dL Albumin/Globulin Ratio 0.9 L (1.0-2.1) 07/15/17 07/15/17 07/15/17 Range/Units 21:09 20:01 16:41 WBC (4.8-10.8) K/uL RBC (4.40-5.90) Mil/uL Hgb (12.0-18.0) g/dL Hct (35.0-51.0) % MCV (80.0-94.0) fL MCH (27.0-31.0) pg MCHC (33.0-37.0) g/dL RDW (11.5-14.5) % Plt Count (130-400) K/uL MPV (7.2-11.7) fL Neut % (Auto) (50.0-75.0) % Lymph % (Auto) (20.0-40.0) % Lucas % (Auto) (0.0-10.0) % Eos % (Auto) (0.0-4.0) % Baso % (Auto) (0.0-2.0) % Neut # (Auto) (1.8-7.0) K/uL Lymph # (Auto) (1.0-4.3) K/uL Lucas # (Auto) (0.0-0.8) K/uL Eos # (Auto) (0.0-0.7) K/uL Baso # (Auto) (0.0-0.2) K/uL Neutrophils % (Manual) (50-75) % Band Neutrophils % (0-2) % Lymphocytes % (Manual) (20-40) % Monocytes % (Manual) (0-10) % Eosinophils % (Manual) (0-4) % Platelet Estimate (NORMAL) Large Platelets Hypochromasia (manual) Poikilocytosis (manual Anisocytosis (manual) Sodium 140 (132-148) mmol/L Potassium 5.1 (3.6-5.2) mmol/L Chloride 109 H (98-107) mmol/L Carbon Dioxide 20 L (22-30) mmol/L Anion Gap 16 (10-20) BUN 53 H (9-20) mg/dL Creatinine 3.2 H (0.8-1.5) mg/dL Est GFR ( Amer) 23 Est GFR (Non-Af Amer) 19 POC Glucose (mg/dL) 200 H 282 H (65-110) mg/dL Random Glucose 218 H (75-110) mg/dL Calcium 7.9 L (8.6-10.4) mg/dl Phosphorus (2.5-4.5) mg/dL Magnesium (1.6-2.3) mg/dL Total Bilirubin (0.2-1.3) mg/dL AST (17-59) U/L ALT (21-72) U/L Alkaline Phosphatase (38-126) U/L Total Protein (6.3-8.3) g/dL Albumin (3.5-5.0) g/dL Globulin (2.2-3.9) gm/dL Albumin/Globulin Ratio (1.0-2.1) 07/15/17 Range/Units 11:37 WBC (4.8-10.8) K/uL RBC (4.40-5.90) Mil/uL Hgb (12.0-18.0) g/dL Hct (35.0-51.0) % MCV (80.0-94.0) fL MCH (27.0-31.0) pg MCHC (33.0-37.0) g/dL RDW (11.5-14.5) % Plt Count (130-400) K/uL MPV (7.2-11.7) fL Neut % (Auto) (50.0-75.0) % Lymph % (Auto) (20.0-40.0) % Lucas % (Auto) (0.0-10.0) % Eos % (Auto) (0.0-4.0) % Baso % (Auto) (0.0-2.0) % Neut # (Auto) (1.8-7.0) K/uL Lymph # (Auto) (1.0-4.3) K/uL Lucas # (Auto) (0.0-0.8) K/uL Eos # (Auto) (0.0-0.7) K/uL Baso # (Auto) (0.0-0.2) K/uL Neutrophils % (Manual) (50-75) % Band Neutrophils % (0-2) % Lymphocytes % (Manual) (20-40) % Monocytes % (Manual) (0-10) % Eosinophils % (Manual) (0-4) % Platelet Estimate (NORMAL) Large Platelets Hypochromasia (manual) Poikilocytosis (manual Anisocytosis (manual) Sodium (132-148) mmol/L Potassium (3.6-5.2) mmol/L Chloride (98-107) mmol/L Carbon Dioxide (22-30) mmol/L Anion Gap (10-20) BUN (9-20) mg/dL Creatinine (0.8-1.5) mg/dL Est GFR ( Amer) Est GFR (Non-Af Amer) POC Glucose (mg/dL) 229 H (65-110) mg/dL Random Glucose (75-110) mg/dL Calcium (8.6-10.4) mg/dl Phosphorus (2.5-4.5) mg/dL Magnesium (1.6-2.3) mg/dL Total Bilirubin (0.2-1.3) mg/dL AST (17-59) U/L ALT (21-72) U/L Alkaline Phosphatase (38-126) U/L Total Protein (6.3-8.3) g/dL Albumin (3.5-5.0) g/dL Globulin (2.2-3.9) gm/dL Albumin/Globulin Ratio (1.0-2.1) Laboratory Results - last 24 hr 07/15/17 07/15/17 07/15/17 11:37 16:41 20:01 WBC RBC Hgb Hct MCV MCH MCHC RDW Plt Count MPV Neut % (Auto) Lymph % (Auto) Lucas % (Auto) Eos % (Auto) Baso % (Auto) Neut # (Auto) Lymph # (Auto) Lucas # (Auto) Eos # (Auto) Baso # (Auto) Neutrophils % (Manual) Band Neutrophils % Lymphocytes % (Manual) Monocytes % (Manual) Eosinophils % (Manual) Platelet Estimate Large Platelets Hypochromasia (manual) Poikilocytosis (manual Anisocytosis (manual) Sodium 140 Potassium 5.1 Chloride 109 H Carbon Dioxide 20 L Anion Gap 16 BUN 53 H Creatinine 3.2 H Est GFR ( Amer) 23 Est GFR (Non-Af Amer) 19 POC Glucose (mg/dL) 229 H 282 H Random Glucose 218 H Calcium 7.9 L Phosphorus Magnesium Total Bilirubin AST ALT Alkaline Phosphatase Total Protein Albumin Globulin Albumin/Globulin Ratio 07/15/17 07/16/17 07/16/17 21:09 06:16 06:17 WBC 17.8 H RBC 3.43 L Hgb 10.5 L Hct 31.7 L MCV 92.5 MCH 30.7 MCHC 33.2 RDW 16.2 H Plt Count 77 L MPV 11.6 Neut % (Auto) 87.3 H Lymph % (Auto) 6.8 L Lucas % (Auto) 3.8 Eos % (Auto) 1.9 Baso % (Auto) 0.2 Neut # (Auto) 15.5 H Lymph # (Auto) 1.2 Lucas # (Auto) 0.7 Eos # (Auto) 0.3 Baso # (Auto) 0.0 Neutrophils % (Manual) 61 Band Neutrophils % 26 H* Lymphocytes % (Manual) 6 L Monocytes % (Manual) 6 Eosinophils % (Manual) 1 Platelet Estimate Decreased L Large Platelets Present Hypochromasia (manual) Slight Poikilocytosis (manual Slight Anisocytosis (manual) Slight Sodium 139 Potassium 4.3 Chloride 108 H Carbon Dioxide 21 L Anion Gap 14 BUN 59 H Creatinine 3.1 H Est GFR ( Amer) 24 Est GFR (Non-Af Amer) 20 POC Glucose (mg/dL) 200 H Random Glucose 145 H Calcium 8.5 L Phosphorus 4.0 Magnesium 1.7 Total Bilirubin 1.0 AST 16 L ALT 18 L D Alkaline Phosphatase 78 Total Protein 5.6 L Albumin 2.7 L Globulin 2.9 Albumin/Globulin Ratio 0.9 L 07/16/17 07:18 WBC RBC Hgb Hct MCV MCH MCHC RDW Plt Count MPV Neut % (Auto) Lymph % (Auto) Lucas % (Auto) Eos % (Auto) Baso % (Auto) Neut # (Auto) Lymph # (Auto) Lucas # (Auto) Eos # (Auto) Baso # (Auto) Neutrophils % (Manual) Band Neutrophils % Lymphocytes % (Manual) Monocytes % (Manual) Eosinophils % (Manual) Platelet Estimate Large Platelets Hypochromasia (manual) Poikilocytosis (manual Anisocytosis (manual) Sodium Potassium Chloride Carbon Dioxide Anion Gap BUN Creatinine Est GFR ( Amer) Est GFR (Non-Af Amer) POC Glucose (mg/dL) 141 H Random Glucose Calcium Phosphorus Magnesium Total Bilirubin AST ALT Alkaline Phosphatase Total Protein Albumin Globulin Albumin/Globulin Ratio EKG/Cardiology Studies: Cardiology / EKG Studies 07/15/17 10:32 EKG [ELECTROCARDIOGRAM] Stat Comment: Mode Of Transportation: Reason For Exam: SOB Fingerstick Blood Sugar Results: 141 Review of Systems - Constitutional Constitutional: absent: Fever, Chills - Cardiovascular Cardiovascular: UNREMARKABLE. absent: Chest Pain at Rest - Respiratory Respiratory: Cough, Dyspnea (Improved), Chest Congestion - Gastrointestinal Gastrointestinal: UNREMARKABLE - Genitourinary Genitourinary: UNREMARKABLE - Integumentary Integumentary: UNREMARKABLE - Neurological Neurological: UNREMARKABLE - Psychiatric Psychiatric: UNREMARKABLE - Hematologic/Lymphatic Hematologic: UNREMARKABLE Critical Care Progress Note - Nutrition Nutrition: Nutrition Category Date Time Status Heart Healthy Diet [DIET] Diets 07/14/17 Dinner Active Assessment/Plan - Assessment and Plan (Free Text) Assessment: This 76 y/o male with a PMHx of anemia, bronchitis, HTN, HLD, CKD - presented to the ED c/o SOB for the past 3 days. Patient found to have RUL pneumonia. ICU consulted for evaluation and treatment of RUL PNA, metabolic Acidosis, and Oliguric acute renal failure. Plan: Neuro: GCS 15 Sedation: N/A Cardio A: HTN/HLD Carvedilol BID Cont. Crestor/Plavix Pulm A: RUL PNA ABG: PH DuoNebs Q4H SHAWN PRN Albuterol Chest PT Mucinex 600 PO BID High Humidity 02 CXR GI No Active Issues at this time Nephro/Elecotrolytes A: Oliguria, CHARLEE on CKD, Metabolic Acidosis (Improving), HyperKalemia (Resolved) , Hypomagnesemia (Resolved), HypoCalcemia, HyperPhosphatemia NaHCO3 in 1/2 NS @ 125mls/hr I/U=2752/945 Cr 3.1 (improved) Heme/Onc A: Anemia HgB 10.5 from 11.6 yesterday. Cont. to Monitor HgB ID A: PNA, Leukocytosis (Improved) Afebrile Cont. Azithromycin/Cefipime Blood/Urine Cultures NEGATIVE Sputum Culture - PENDING PRN Tylenol Band Neutrophils increased form 19 to 26 today. Will Monitor. Endo A: DM II CdRT8v=8.7 Regular ISS Lantus 15 HS Proph Heparin No indication for GI Proph Patient seen and examined with ICU Attending Gita Herrera, PGY-1 <Neno Bryan - Last Filed: 07/16/17 15:55> CCU Objective - Vital Signs / Intake & Output Vital Signs (Last 4 hours): Vital Signs Temp Pulse Resp BP Pulse Ox 07/16/17 15:30 83 22 99 07/16/17 15:00 86 17 99 07/16/17 14:53 85 26 H 139/63 98 07/16/17 14:30 84 24 100 07/16/17 14:00 85 26 H 100 07/16/17 13:53 83 22 142/74 99 07/16/17 13:30 85 21 99 07/16/17 13:00 83 16 100 07/16/17 12:53 83 20 135/73 96 07/16/17 12:30 85 22 99 07/16/17 12:00 98.4 F 92 H 24 98 Intake and Output (Last 8hrs): Intake & Output 07/16/17 07/16/17 07/16/17 06:59 14:59 22:59 Intake Total 1150 1880 125 Output Total 550 500 160 Balance 600 1380 -35 Intake: Intake, IV Amount 1000 1300 125 Left Forearm 1000 375 Left Wrist 300 Left hand 625 125 Oral 150 580 Output: Urine 550 500 160 Urethral (Mo) 550 500 160 Emesis 0 0 Other: # Bowel Movements 0 0 - Medications Active Medications: Active Medications Generic Name Dose Route Start Last Admin Trade Name Freq PRN Reason Stop Dose Admin Acetaminophen 650 mg 07/14/17 20:00 07/15/17 23:39 Tylenol 325mg Tab PO 650 mg Q6 PRN Administration Fever >100.4 F Albuterol Sulfate 3 mg 07/15/17 18:00 Albuterol 0.083% Inhal Mishel (2.5 Mg/3 Ml) Ud INH RQ2 PRN Shortness of Breath Albuterol/Ipratropium 3 ml 07/15/17 12:00 07/16/17 11:19 Duoneb 3 Mg/0.5 Mg (3 Ml) Ud INH 3 ml RQ4 SHAWN Administration Carvedilol 25 mg 07/14/17 18:00 07/16/17 10:43 Coreg PO 25 mg BID [facility]N Administration Clopidogrel Bisulfate 75 mg 07/15/17 10:00 07/16/17 10:43 Plavix PO 75 mg DAILY [facility] Administration Guaifenesin 600 mg 07/14/17 18:00 07/16/17 10:43 Mucinex La PO 600 mg BID [facility] Administration Heparin Sodium (Porcine) 5,000 units 07/14/17 22:00 07/16/17 06:00 Heparin SC 5,000 units Q8 [facility] Administration Azithromycin 500 mg/ Sodium 250 mls @ 250 mls/hr 07/15/17 10:00 07/16/17 10: 42 Chloride IVPB 250 mls/hr DAILY [facility] Administration Protocol Cefepime HCl 0.5 gm/ Sodium 50 mls @ 100 mls/hr 07/15/17 10:00 07/16/17 10:42 Chloride IVPB 100 mls/hr Q12 [facility] Administration Protocol Sodium Bicarbonate 75 meq/ 1,000 mls @ 125 mls/hr 07/15/17 08:15 07/16/17 02: 44 Sodium Chloride IV 125 mls/hr .Q8H [facility] Administration Insulin Aspart 0 unit 07/14/17 22:00 07/16/17 12:30 Novolog SC 6 unit ACHS [facility] Administration Protocol Insulin Glargine 15 unit 07/14/17 22:00 07/15/17 21:28 Lantus SC 15 units HS [facility] Administration Oxycodone/Acetaminophen 2 tab 07/14/17 18:53 07/15/17 09:48 Percocet 5/325 Mg Tab PO 07/17/17 18:54 2 tab Q4H PRN Administration Pain, severe (8-10) Rosuvastatin Calcium 5 mg 07/14/17 22:00 07/15/17 21:27 Crestor PO 5 mg HS [facility] Administration - Patient Studies Lab Studies: Microbiology Studies 07/14/17 14:15 Blood Culture - Preliminary Blood NO GROWTH AFTER 48 HOURS 07/14/17 14:45 Blood Culture - Preliminary Blood NO GROWTH AFTER 48 HOURS 07/15/17 15:40 Gram Stain - Preliminary Sputum 07/14/17 15:44 Urine Culture - Final Urine,Clean Catch No Growth (<1,000 CFU/ML) Lab Studies 07/16/17 07/16/17 07/16/17 Range/Units 11:24 07:18 06:17 WBC (4.8-10.8) K/uL RBC (4.40-5.90) Mil/uL Hgb (12.0-18.0) g/dL Hct (35.0-51.0) % MCV (80.0-94.0) fL MCH (27.0-31.0) pg MCHC (33.0-37.0) g/dL RDW (11.5-14.5) % Plt Count (130-400) K/uL MPV (7.2-11.7) fL Neut % (Auto) (50.0-75.0) % Lymph % (Auto) (20.0-40.0) % Lucas % (Auto) (0.0-10.0) % Eos % (Auto) (0.0-4.0) % Baso % (Auto) (0.0-2.0) % Neut # (Auto) (1.8-7.0) K/uL Lymph # (Auto) (1.0-4.3) K/uL Lucas # (Auto) (0.0-0.8) K/uL Eos # (Auto) (0.0-0.7) K/uL Baso # (Auto) (0.0-0.2) K/uL Neutrophils % (Manual) (50-75) % Band Neutrophils % (0-2) % Lymphocytes % (Manual) (20-40) % Monocytes % (Manual) (0-10) % Eosinophils % (Manual) (0-4) % Platelet Estimate (NORMAL) Large Platelets Hypochromasia (manual) Poikilocytosis (manual Anisocytosis (manual) Sodium 139 (132-148) mmol/L Potassium 4.3 (3.6-5.2) mmol/L Chloride 108 H (98-107) mmol/L Carbon Dioxide 21 L (22-30) mmol/L Anion Gap 14 (10-20) BUN 59 H (9-20) mg/dL Creatinine 3.1 H (0.8-1.5) mg/dL Est GFR ( Amer) 24 Est GFR (Non-Af Amer) 20 POC Glucose (mg/dL) 247 H 141 H (65-110) mg/dL Random Glucose 145 H (75-110) mg/dL Calcium 8.5 L (8.6-10.4) mg/dl Phosphorus 4.0 (2.5-4.5) mg/dL Magnesium 1.7 (1.6-2.3) mg/dL Total Bilirubin 1.0 (0.2-1.3) mg/dL AST 16 L (17-59) U/L ALT 18 L D (21-72) U/L Alkaline Phosphatase 78 (38-126) U/L Total Protein 5.6 L (6.3-8.3) g/dL Albumin 2.7 L (3.5-5.0) g/dL Globulin 2.9 (2.2-3.9) gm/dL Albumin/Globulin Ratio 0.9 L (1.0-2.1) 07/16/17 07/15/17 07/15/17 Range/Units 06:16 21:09 20:01 WBC 17.8 H (4.8-10.8) K/uL RBC 3.43 L (4.40-5.90) Mil/uL Hgb 10.5 L (12.0-18.0) g/dL Hct 31.7 L (35.0-51.0) % MCV 92.5 (80.0-94.0) fL MCH 30.7 (27.0-31.0) pg MCHC 33.2 (33.0-37.0) g/dL RDW 16.2 H (11.5-14.5) % Plt Count 77 L (130-400) K/uL MPV 11.6 (7.2-11.7) fL Neut % (Auto) 87.3 H (50.0-75.0) % Lymph % (Auto) 6.8 L (20.0-40.0) % Lucas % (Auto) 3.8 (0.0-10.0) % Eos % (Auto) 1.9 (0.0-4.0) % Baso % (Auto) 0.2 (0.0-2.0) % Neut # (Auto) 15.5 H (1.8-7.0) K/uL Lymph # (Auto) 1.2 (1.0-4.3) K/uL Lucas # (Auto) 0.7 (0.0-0.8) K/uL Eos # (Auto) 0.3 (0.0-0.7) K/uL Baso # (Auto) 0.0 (0.0-0.2) K/uL Neutrophils % (Manual) 61 (50-75) % Band Neutrophils % 26 H* (0-2) % Lymphocytes % (Manual) 6 L (20-40) % Monocytes % (Manual) 6 (0-10) % Eosinophils % (Manual) 1 (0-4) % Platelet Estimate Decreased L (NORMAL) Large Platelets Present Hypochromasia (manual) Slight Poikilocytosis (manual Slight Anisocytosis (manual) Slight Sodium 140 (132-148) mmol/L Potassium 5.1 (3.6-5.2) mmol/L Chloride 109 H (98-107) mmol/L Carbon Dioxide 20 L (22-30) mmol/L Anion Gap 16 (10-20) BUN 53 H (9-20) mg/dL Creatinine 3.2 H (0.8-1.5) mg/dL Est GFR ( Amer) 23 Est GFR (Non-Af Amer) 19 POC Glucose (mg/dL) 200 H (65-110) mg/dL Random Glucose 218 H (75-110) mg/dL Calcium 7.9 L (8.6-10.4) mg/dl Phosphorus (2.5-4.5) mg/dL Magnesium (1.6-2.3) mg/dL Total Bilirubin (0.2-1.3) mg/dL AST (17-59) U/L ALT (21-72) U/L Alkaline Phosphatase (38-126) U/L Total Protein (6.3-8.3) g/dL Albumin (3.5-5.0) g/dL Globulin (2.2-3.9) gm/dL Albumin/Globulin Ratio (1.0-2.1) /12/23 Range/Units 16:41 WBC (4.8-10.8) K/uL RBC (4.40-5.90) Mil/uL Hgb (12.0-18.0) g/dL Hct (35.0-51.0) % MCV (80.0-94.0) fL MCH (27.0-31.0) pg MCHC (33.0-37.0) g/dL RDW (11.5-14.5) % Plt Count (130-400) K/uL MPV (7.2-11.7) fL Neut % (Auto) (50.0-75.0) % Lymph % (Auto) (20.0-40.0) % Lucas % (Auto) (0.0-10.0) % Eos % (Auto) (0.0-4.0) % Baso % (Auto) (0.0-2.0) % Neut # (Auto) (1.8-7.0) K/uL Lymph # (Auto) (1.0-4.3) K/uL Lucas # (Auto) (0.0-0.8) K/uL Eos # (Auto) (0.0-0.7) K/uL Baso # (Auto) (0.0-0.2) K/uL Neutrophils % (Manual) (50-75) % Band Neutrophils % (0-2) % Lymphocytes % (Manual) (20-40) % Monocytes % (Manual) (0-10) % Eosinophils % (Manual) (0-4) % Platelet Estimate (NORMAL) Large Platelets Hypochromasia (manual) Poikilocytosis (manual Anisocytosis (manual) Sodium (132-148) mmol/L Potassium (3.6-5.2) mmol/L Chloride (98-107) mmol/L Carbon Dioxide (22-30) mmol/L Anion Gap (10-20) BUN (9-20) mg/dL Creatinine (0.8-1.5) mg/dL Est GFR ( Amer) Est GFR (Non-Af Amer) POC Glucose (mg/dL) 282 H (65-110) mg/dL Random Glucose (75-110) mg/dL Calcium (8.6-10.4) mg/dl Phosphorus (2.5-4.5) mg/dL Magnesium (1.6-2.3) mg/dL Total Bilirubin (0.2-1.3) mg/dL AST (17-59) U/L ALT (21-72) U/L Alkaline Phosphatase (38-126) U/L Total Protein (6.3-8.3) g/dL Albumin (3.5-5.0) g/dL Globulin (2.2-3.9) gm/dL Albumin/Globulin Ratio (1.0-2.1) Laboratory Results - last 24 hr 07/15/17 07/15/17 07/15/17 16:41 20:01 21:09 WBC RBC Hgb Hct MCV MCH MCHC RDW Plt Count MPV Neut % (Auto) Lymph % (Auto) Lucas % (Auto) Eos % (Auto) Baso % (Auto) Neut # (Auto) Lymph # (Auto) Lucas # (Auto) Eos # (Auto) Baso # (Auto) Neutrophils % (Manual) Band Neutrophils % Lymphocytes % (Manual) Monocytes % (Manual) Eosinophils % (Manual) Platelet Estimate Large Platelets Hypochromasia (manual) Poikilocytosis (manual Anisocytosis (manual) Sodium 140 Potassium 5.1 Chloride 109 H Carbon Dioxide 20 L Anion Gap 16 BUN 53 H Creatinine 3.2 H Est GFR ( Amer) 23 Est GFR (Non-Af Amer) 19 POC Glucose (mg/dL) 282 H 200 H Random Glucose 218 H Calcium 7.9 L Phosphorus Magnesium Total Bilirubin AST ALT Alkaline Phosphatase Total Protein Albumin Globulin Albumin/Globulin Ratio 07/16/17 07/16/17 07/16/17 06:16 06:17 07:18 WBC 17.8 H RBC 3.43 L Hgb 10.5 L Hct 31.7 L MCV 92.5 MCH 30.7 MCHC 33.2 RDW 16.2 H Plt Count 77 L MPV 11.6 Neut % (Auto) 87.3 H Lymph % (Auto) 6.8 L Lucas % (Auto) 3.8 Eos % (Auto) 1.9 Baso % (Auto) 0.2 Neut # (Auto) 15.5 H Lymph # (Auto) 1.2 Lucas # (Auto) 0.7 Eos # (Auto) 0.3 Baso # (Auto) 0.0 Neutrophils % (Manual) 61 Band Neutrophils % 26 H* Lymphocytes % (Manual) 6 L Monocytes % (Manual) 6 Eosinophils % (Manual) 1 Platelet Estimate Decreased L Large Platelets Present Hypochromasia (manual) Slight Poikilocytosis (manual Slight Anisocytosis (manual) Slight Sodium 139 Potassium 4.3 Chloride 108 H Carbon Dioxide 21 L Anion Gap 14 BUN 59 H Creatinine 3.1 H Est GFR ( Amer) 24 Est GFR (Non-Af Amer) 20 POC Glucose (mg/dL) 141 H Random Glucose 145 H Calcium 8.5 L Phosphorus 4.0 Magnesium 1.7 Total Bilirubin 1.0 AST 16 L ALT 18 L D Alkaline Phosphatase 78 Total Protein 5.6 L Albumin 2.7 L Globulin 2.9 Albumin/Globulin Ratio 0.9 L 07/16/17 11:24 WBC RBC Hgb Hct MCV MCH MCHC RDW Plt Count MPV Neut % (Auto) Lymph % (Auto) Lucas % (Auto) Eos % (Auto) Baso % (Auto) Neut # (Auto) Lymph # (Auto) Lucas # (Auto) Eos # (Auto) Baso # (Auto) Neutrophils % (Manual) Band Neutrophils % Lymphocytes % (Manual) Monocytes % (Manual) Eosinophils % (Manual) Platelet Estimate Large Platelets Hypochromasia (manual) Poikilocytosis (manual Anisocytosis (manual) Sodium Potassium Chloride Carbon Dioxide Anion Gap BUN Creatinine Est GFR ( Amer) Est GFR (Non-Af Amer) POC Glucose (mg/dL) 247 H Random Glucose Calcium Phosphorus Magnesium Total Bilirubin AST ALT Alkaline Phosphatase Total Protein Albumin Globulin Albumin/Globulin Ratio Critical Care Progress Note - Nutrition Nutrition: Nutrition Category Date Time Status Heart Healthy Diet [DIET] Diets 07/14/17 Dinner Active Attending/Attestation - Attestation I have personally seen and examined this patient.: Yes I have fully participated in the care of the patient.: Yes I have reviewed all pertinent clinical information: Yes Notes (Text): 07/16/17 15:54 I have seen and examined the patient. Medical records, lab studies, and imaging were reviewed by me and a management plan was formulated on multidisciplinary rounds with resident Dr. Herrera. I agree with their documented assessment and plan. Patient is showing improvement. continue current therapy for his pneumonia, chest pt, duonebs, abx, mucolytics. Critical Care Time 35 minutes. Multi-disciplinary rounds were performed with house staff, nursing, speech therapy, respiratory therapy, pharmacy and nutrition with integrated input from the primary team/attending and other consulting services. The documented time is cumulative and includes review of patient data/exams/labs/chart review and examination of the patient on rounds and throughout the day; time is exclusive of any procedures or teaching time.
[2017-07-16] MEDS: Azithromycin 500 MG in Sodium Chloride 0.9% 250 ML IVPB SCH (10:42)
[2017-07-16] MEDS: guaiFENesin 600 mg ER Tab PO SCH ×2 (10:43→17:55)
--- NOTE | 2017-07-16 15:25 | RAD ---
Chest x-ray single frontal view History: Pneumonia. Comparison: 07/15/2017 Findings: Dense confluent consolidation seen within the right upper to mid lung zone. Prominent diffuse increased interstitial lung markings suggestive for underlying edema and or infiltrate. Enlarged ectatic aorta. Cardiomegaly. Calcification at the aortic knob. Status post median sternotomy. Right paratracheal airspace opacity may represent prominent vasculature. Impression: Dense confluent consolidation seen within the right upper to mid lung zone. Prominent diffuse increased interstitial lung markings suggestive for underlying edema and or infiltrate. Enlarged ectatic aorta. Cardiomegaly. Calcification at the aortic knob. Status post median sternotomy. Right paratracheal airspace opacity may represent prominent vasculature.
--- NOTE | 2017-07-16 15:37 | CP.PCM.PN ---
Subjective - Date & Time of Evaluation Date of Evaluation: 07/16/17 Time of Evaluation: 15:35 - Subjective Subjective: Nephrology Consultation Note Assesemnt: Critical RUL pneumonia with septic shock HAGMA with hyperkalemia, hyperphosphatemia CHARLEE on CKD stage 4 likely hemodynamic ? 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 hold ACEI/ARB due to hyperkalemia no acute need for renal replacement therapy at this time continue with IVF, can switch to normal saline Monitor Input/Output, daily weights and renal function with basic metabolic panel d/c neurontin to avoid neurotoxicity in severe CHARLEE resume supplement Vit D 1000/day and continue iron tab 325 mg TID with meals once pt stable. can defer for now. Dose meds/antibiotics for reduced GFR. Avoid fleets enema/magnesium based laxatives. Avoid nephrotoxins/NSAIDs/ iodinated contrast (unless needed emergently) Glycemic control Further work up/management as per primary team Thanks for allowing me to participate in care of your patient. Will follow patient with you. Please call if any Qs. had d/w team and Dr CorderoRonentushar Everett Office: [phone] CC: shortness of breath and Pneumonia reason for consult: CHARLEE HPI: He is a 76 y/o M hx of CAD s/p CABG, DM, HTN since 2006, MPO ANCA vasculitis s/p kidney biopsy [facility] [place] [facility] 08/31/2016. He had completed 4 doses of rituxan on oct 08 2016 with remission of renal vasculitis but has CKD stage 3/ 4 (baseline cr 2.3-2.4) recent removal of lump from Rt upper arm at [facility] came with SOB x 1 day and found to have RUL pneumonia with septic shock , renal consult for CHARLEE he feels bit better. still has SOB and cough. has monahan catheter ROS: Cardiovascular: No chest pain. Pulmonary: improved shortness of breath Gastrointestinal: denies abdominal pain No nausea. No vomiting. Genitourinary: No pain while urinating. Denies blood in urine. Rest all other negative except as mentioned in HPI exam: General Appearance: Comfortable, in no acute respiratory distress, co- operative . better appearing, obese Vitals reviewed and noted Head; Atraumatic, normocephalic ENT: no ulcers no thrush. Tongue is midline. Oropharynx: no rash or ulcers. EYES: Pupils are equal, round and reactive to light accommodation. Eye muscles and extraocular movement intact. Sclera is anicteric. Neck; supple no lymphadenopathy, no thyromegaly or bruit Lungs: improved respiratory rate/effort. Breath sounds bilateral + improved Heart: Normal rate. s1s2 normal. No rub or gallop. Extremities: no edema. No varicose veins Neurological: Patient is alert, awake and oriented to person, place and time. No focal deficit. Strength bilateral appropriate and equal Skin: Warm and dry. Normal turgor. has vitiligo. Palpitation: Normal elasticity for age Abdomen: Abdomen is soft. Bowel sounds +. There is no abdominal tenderness, no guarding/rigidity or organomegaly Psych: normal insight and normal affect/mood MSK: no joint tenderness or swelling. Digits and nails normal, no deformity. has firm swelling over Rt humerus, mobile ? lipoma : kidney or bladder not palpable. has monahan Labs/imaging reviewed. Past medical history, past surgical history, family history, social history, allergy reviewed and noted as below Family hx: no hx of CKD. 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 Interstitial hemorrhage, RBC with casts in tubules, thyroidization of tubules, arterial intimal thickening and mild interstitial fibrosis. No glomerulus for IF or EM. 03/12/17: UA 30 protein no blood. pr/cr 245 mg/gr Ferritin 51 TSAT 30% PTH 178 Vit D 31 NA 145 K 4.4 Bicarb 23 BUN/Cr 39/3.1 Ca 9.2 GLucose 94 04/12/17: MPO titer >1:640, Sodium 146 potassium 4.4 bicarbonate 27 BU and 36 creatinine 2.3 MDRD GFR 30 Hemoglobin 12 UA no blood had 30 protein ratio of pr/ cr 245 mg/g of creatinine 06/09/17: UA 30 protein no blood but pr/cr ratio of 1031 mg/gr microalbumin >300 NA 144 K 5.1 BUN 39 cr 2.4 bicarb 22 (GFR 28) K 5.1 Hb 11.6 Objective - Vital Signs/Intake and Output Vital Signs (last 24 hours): Temp Pulse Resp BP Pulse Ox 98.4 F 85 26 H 142/74 100 07/16/17 12:00 07/16/17 14:00 07/16/17 14:00 07/16/17 13:53 07/16/17 14:00 Intake and Output: 07/16/17 07/16/17 06:59 18:59 Intake Total 1750 1880 Output Total 710 500 Balance 1040 1380 - Medications Medications: Current Medications Acetaminophen (Tylenol 325mg Tab) 650 mg PO Q6 PRN PRN Reason: Fever >100.4 F Last Admin: 07/15/17 23:39 Dose: 650 mg Albuterol Sulfate (Albuterol 0.083% Inhal Mishel (2.5 Mg/3 Ml) Ud) 3 mg INH RQ2 PRN PRN Reason: Shortness of Breath Albuterol/Ipratropium (Duoneb 3 Mg/0.5 Mg (3 Ml) Ud) 3 ml INH RQ4 [facility] Last Admin: 07/16/17 11:19 Dose: 3 ml Carvedilol (Coreg) 25 mg PO BID [facility] Last Admin: 07/16/17 10:43 Dose: 25 mg Clopidogrel Bisulfate (Plavix) 75 mg PO DAILY [facility] Last Admin: 07/16/17 10:43 Dose: 75 mg Guaifenesin (Mucinex La) 600 mg PO BID [facility] Last Admin: 07/16/17 10:43 Dose: 600 mg Heparin Sodium (Porcine) (Heparin) 5,000 units SC Q8 [facility] Last Admin: 07/16/17 06:00 Dose: 5,000 units Azithromycin 500 mg/ Sodium (Chloride) 250 mls @ 250 mls/hr IVPB DAILY [facility] PRN Reason: Protocol Last Admin: 07/16/17 10:42 Dose: 250 mls/hr Cefepime HCl 0.5 gm/ Sodium (Chloride) 50 mls @ 100 mls/hr IVPB Q12 [facility] PRN Reason: Protocol Last Admin: 07/16/17 10:42 Dose: 100 mls/hr Sodium Bicarbonate 75 meq/ (Sodium Chloride) 1,000 mls @ 125 mls/hr IV .Q8H [facility] Last Admin: 07/16/17 02:44 Dose: 125 mls/hr Insulin Aspart (Novolog) 0 unit SC ACHS [facility] PRN Reason: Protocol Last Admin: 07/16/17 12:30 Dose: 6 unit Insulin Glargine (Lantus) 15 unit SC HS [facility] Last Admin: 07/15/17 21:28 Dose: 15 units Oxycodone/Acetaminophen (Percocet 5/325 Mg Tab) 2 tab PO Q4H PRN PRN Reason: Pain, severe (8-10) Stop: 07/17/17 18:54 Last Admin: 07/15/17 09:48 Dose: 2 tab Rosuvastatin Calcium (Crestor) 5 mg PO [facility] Last Admin: 07/15/17 21:27 Dose: 5 mg - Labs Labs: 07/16/17 06:16 07/16/17 06:17 APTT 40 SECONDS (21-34) H 07/15/17 07:14
--- NOTE | 2017-07-16 17:33 | CP.PCM.PN ---
Subjective - Date & Time of Evaluation Date of Evaluation: 07/16/17 Time of Evaluation: 16:00 - Subjective Subjective: Hospitalist Service Covering Dr. Peralta's service Patient seen and examined at bedside. Patient seen with , 2 daughters, and aunt at bedside. Patient reports he is breathing better, denies headache, denies chest pain, denies vomitting, denies abdominal pain, reports he has had a bowel movement today, reports cough. Objective - Vital Signs/Intake and Output Vital Signs (last 24 hours): Temp Pulse Resp BP Pulse Ox 98.4 F 83 22 139/63 99 07/16/17 12:00 07/16/17 15:30 07/16/17 15:30 07/16/17 14:53 07/16/17 15:30 Intake and Output: 07/16/17 07/16/17 06:59 18:59 Intake Total 1750 2005 Output Total 710 660 Balance 1040 1345 - Medications Medications: Current Medications Acetaminophen (Tylenol 325mg Tab) 650 mg PO Q6 PRN PRN Reason: Fever >100.4 F Last Admin: 07/15/17 23:39 Dose: 650 mg Albuterol Sulfate (Albuterol 0.083% Inhal Mishel (2.5 Mg/3 Ml) Ud) 3 mg INH RQ2 PRN PRN Reason: Shortness of Breath Albuterol/Ipratropium (Duoneb 3 Mg/0.5 Mg (3 Ml) Ud) 3 ml INH RQ4 [facility] Last Admin: 07/16/17 16:01 Dose: 3 ml Carvedilol (Coreg) 25 mg PO BID [facility] Last Admin: 07/16/17 10:43 Dose: 25 mg Clopidogrel Bisulfate (Plavix) 75 mg PO DAILY [facility] Last Admin: 07/16/17 10:43 Dose: 75 mg Guaifenesin (Mucinex La) 600 mg PO BID [facility] Last Admin: 07/16/17 10:43 Dose: 600 mg Heparin Sodium (Porcine) (Heparin) 5,000 units SC Q8 [facility] Last Admin: 07/16/17 15:56 Dose: 5,000 units Azithromycin 500 mg/ Sodium (Chloride) 250 mls @ 250 mls/hr IVPB DAILY [facility] PRN Reason: Protocol Last Admin: 07/16/17 10:42 Dose: 250 mls/hr Cefepime HCl 0.5 gm/ Sodium (Chloride) 50 mls @ 100 mls/hr IVPB Q12 [facility] PRN Reason: Protocol Last Admin: 07/16/17 10:42 Dose: 100 mls/hr Sodium Bicarbonate 75 meq/ (Sodium Chloride) 1,000 mls @ 125 mls/hr IV .Q8H [facility] Last Admin: 07/16/17 11:30 Dose: 125 mls/hr Insulin Aspart (Novolog) 0 unit SC ACHS [facility] PRN Reason: Protocol Last Admin: 07/16/17 12:30 Dose: 6 unit Insulin Glargine (Lantus) 15 unit SC HS [facility] Last Admin: 07/15/17 21:28 Dose: 15 units Oxycodone/Acetaminophen (Percocet 5/325 Mg Tab) 2 tab PO Q4H PRN PRN Reason: Pain, severe (8-10) Stop: 07/17/17 18:54 Last Admin: 07/15/17 09:48 Dose: 2 tab Rosuvastatin Calcium (Crestor) 5 mg PO [facility] Last Admin: 07/15/17 21:27 Dose: 5 mg - Labs Labs: 07/16/17 06:16 07/16/17 06:17 APTT 40 SECONDS (21-34) H 07/15/17 07:14 - Constitutional Appears: Non-toxic, No Acute Distress, Younger Than Stated Age - Head Exam Head Exam: NORMAL INSPECTION Additional comments: healed midline incision - Eye Exam Eye Exam: EOMI - ENT Exam ENT Exam: Mucous Membranes Moist - Respiratory Exam Respiratory Exam: Decreased Breath Sounds (right upper lobe), Wheezes ( scattered ). absent: Respiratory Distress, Stridor - Cardiovascular Exam Cardiovascular Exam: REGULAR RHYTHM, +S1, +S2 - GI/Abdominal Exam GI & Abdominal Exam: Distended (obese habitus), Soft, Normal Bowel Sounds. absent: Firm, Guarding, Rigid, Tenderness, Rebound - Extremities Exam Extremities Exam: absent: Pedal Edema, Tenderness - Neurological Exam Neurological Exam: Alert, Awake, Oriented x3 - Psychiatric Exam Psychiatric exam: Normal Affect, Normal Mood - Skin Skin Exam: Dry, Intact, Normal Color, Warm Assessment and Plan (1) Sepsis Assessment & Plan: * Criteria: leukocytosis, bandemia, febrile (102.3F) Source: pneumonia * Blood cultures (07/14/17): no growth after 48 hours X2 * Urine culture (07/14/17): no growth * Sputum culture (07/15/17): pending * Lung scan (07/14/17): low probability of ventilation perfusion scan for pulmonary embolism; matching perfusion and ventilation defect at the right upper lobe may represent pneumonia or other airspace disease * Chest xray (07/16/17): dense confluent consolidation seen within the right upper to mid lung zone; prominent diffuse increased interstitial lung markings suggestive for underlying edema and or infiltrate, cardiomegaly, status post median sternotomy. right paratracheal airspace opacity may represent prominent vasculature * Azithromycin 500mg IVPB daily (active since 07/15/17) * Cefepime 0.5gm IVPB Q12H (active since 07/15/17) * Bicarbonate drip Status: Acute (2) Pneumonia Assessment & Plan: * Criteria: leukocytosis, bandemia, febrile (102.3F) Source: pneumonia * Lung scan (07/14/17): low probability of ventilation perfusion scan for pulmonary embolism; matching perfusion and ventilation defect at the right upper lobe may represent pneumonia or other airspace disease * Chest xray (07/16/17): dense confluent consolidation seen within the right upper to mid lung zone; prominent diffuse increased interstitial lung markings suggestive for underlying edema and or infiltrate, cardiomegaly, status post median sternotomy. right paratracheal airspace opacity may represent prominent vasculature * Azithromycin 500mg IVPB daily (active since 07/15/17) * Cefepime 0.5gm IVPB Q12H (active since 07/15/17) * Bicarbonate drip * Order for legionella, Strep pneumonia urine, and Mycoplasma IgM Status: Acute (3) Coronary artery bypass grafts x 4 Assessment & Plan: * Coreg 25mg PO BID * Plavix 75mg PO daily * Crestor 5mg POqHS * Hold Aspirin secondary to thrombocytopenia Status: Chronic (4) Diabetes mellitus type 2 Assessment & Plan: Hgba1c: 9.7 Crestor 5mg POqHS Novolog sub ACHS Lantus 15 units subqHS Status: Chronic (5) Thrombocytopenia Assessment & Plan: * Unclear if related to sepsis or secondary to HIT * Will d/c heparin given decreasing thrombocytopenia * Order for HIT and Serotonin Release Assay * Hold Aspirin given thrombocytopenia Status: Acute (6) Lipid disorder Assessment & Plan: * Check lipid panel in AM * Crestor 5mg PO qHS Status: Chronic (7) Hypertension Assessment & Plan: * Coreg 25mg PO BID * Monitor blood pressure Status: Chronic (8) Metabolic acidosis Assessment & Plan: secondary to sepsis secondary to pneumonia Status: Acute (9) Chronic kidney disease Assessment & Plan: * Nephrology (Dr. Everett) on board-->help appreciated * Renal biopsy: secondary to MPO ANCA vasculitis * Hold barbie/arb due to hyperkalemia * no acute need for renal replacement therapy at this time * d/c neurotonin to avoid neurotoxicity in severe CHARLEE Status: Acute (10) Vasculitis Status: Chronic (11) Prophylactic measure Assessment & Plan: Heparin d/c secondary to thrombocytopenia Pepcid 20mg PO daily for GI ppx Tylenol 650mg PO Q 6H PRN Status: Acute
[2017-07-16] MEDS: (Lantus) Insulin Glargine, Recombinant SC SCH (21:09)
[2017-07-16] MEDS: Oxycodone/Acetaminophen 5/325 mg Tab PO PRN (22:59)
[2017-07-17] MEDS: Sodium Bicarbonate 8.4% 75 MEQ in Sodium Chloride 0.45% 925 ML IV SCH (00:15)
[2017-07-17] MEDS: Albuterol-Ipratrop 3 mg / 0.5 (3 ml) UD INH SCH ×5 (00:49→19:42)
[2017-07-17 06:59] LABS: BASO % 0.4 % (0.0-2.0); EOS # 0.3 K/uL (0.0-0.7); EOS % 2.8 % (0.0-4.0); HEMOGLOBIN 9.9 g/dL (12.0-18.0); LYMPH # 0.9 K/uL (1.0-4.3); LYMPH % 8.4 % (20.0-40.0); MEAN CORPUSCULAR HEMOGLOBIN 30.4 pg (27.0-31.0); MEAN CORPUSCULAR HGB CONC 33.4 g/dL (33.0-37.0); MEAN PLATELET VOLUME 11.4 fL (7.2-11.7); MONO # 0.4 K/uL (0.0-0.8); MONO % 4.1 % (0.0-10.0); NEUT # 8.9 K/uL (1.8-7.0); NEUT % 84.3 % (50.0-75.0); PLATELET COUNT 87 K/uL (130-400); RBC 3.26 Mil/uL (4.40-5.90); RED CELL DISTRIBUTION WIDTH 15.6 % (11.5-14.5); WHITE BLOOD COUNT 10.6 K/uL (4.8-10.8)
[2017-07-17 07:26] LABS: ALBUMIN 2.8 g/dL (3.5-5.0); CALCIUM 8.3 mg/dl (8.6-10.4)
[2017-07-17] MEDS ORDERED: Sodium Chloride 0.45% 1,000 ML IV SCH (07:30)
[2017-07-17] MEDS: (Novolog) Insulin Aspart, Recombinant 100 u/ml 10 ml vial SC SCH ×4 (07:45→21:28)
[2017-07-17 08:13] LABS: LEGIONELLA AG URINE NEGATIVE (NEGATIVE)
--- NOTE | 2017-07-17 08:23 | CP.PCM.PN ---
Subjective - Date & Time of Evaluation Date of Evaluation: 07/17/17 Time of Evaluation: 08:20 - Subjective Subjective: Medical Attending Note Patient seen and examined this morning. Patient reports shortness of breathe, cough, dyspnea on exertion. Patient reports pleuritic chest pain. Patient denies abdominal pain, denies nausea, denies vomitting, denies dysuria, denies hematuria. Objective - Vital Signs/Intake and Output Vital Signs (last 24 hours): Temp Pulse Resp BP Pulse Ox 99.2 F 75 17 139/69 99 07/17/17 04:00 07/17/17 07:00 07/17/17 07:00 07/17/17 06:53 07/17/17 07:00 Intake and Output: 07/17/17 07/17/17 06:59 18:59 Intake Total 2009 125 Output Total 1505 100 Balance 505 25 - Medications Medications: Current Medications Acetaminophen (Tylenol 325mg Tab) 650 mg PO Q6 PRN PRN Reason: Fever >100.4 F Last Admin: 07/15/17 23:39 Dose: 650 mg Albuterol Sulfate (Albuterol 0.083% Inhal Mishel (2.5 Mg/3 Ml) Ud) 3 mg INH RQ2 PRN PRN Reason: Shortness of Breath Albuterol/Ipratropium (Duoneb 3 Mg/0.5 Mg (3 Ml) Ud) 3 ml INH RQ4 [facility] Last Admin: 07/17/17 08:11 Dose: 3 ml Carvedilol (Coreg) 25 mg PO BID [facility] Last Admin: 07/16/17 17:55 Dose: 25 mg Clopidogrel Bisulfate (Plavix) 75 mg PO DAILY [facility] Last Admin: 07/16/17 10:43 Dose: 75 mg Guaifenesin (Mucinex La) 600 mg PO BID [facility] Last Admin: 07/16/17 17:55 Dose: 600 mg Azithromycin 500 mg/ Sodium (Chloride) 250 mls @ 250 mls/hr IVPB DAILY [facility] PRN Reason: Protocol Last Admin: 07/16/17 10:42 Dose: 250 mls/hr Cefepime HCl 0.5 gm/ Sodium (Chloride) 50 mls @ 100 mls/hr IVPB Q12 [facility] PRN Reason: Protocol Last Admin: 07/16/17 21:08 Dose: 100 mls/hr Sodium Chloride (Sodium Chloride 0.45%) 1,000 mls @ 125 mls/hr IV .Q8H [facility] Insulin Aspart (Novolog) 0 unit SC ACHS [facility] PRN Reason: Protocol Last Admin: 07/16/17 21:41 Dose: Not Given Insulin Glargine (Lantus) 15 unit SC HS [facility] Last Admin: 07/16/17 21:09 Dose: 15 units Oxycodone/Acetaminophen (Percocet 5/325 Mg Tab) 2 tab PO Q4H PRN PRN Reason: Pain, severe (8-10) Stop: 07/17/17 18:54 Last Admin: 07/16/17 22:59 Dose: 2 tab Rosuvastatin Calcium (Crestor) 5 mg PO [facility] Last Admin: 07/16/17 21:11 Dose: 5 mg - Labs Labs: 07/17/17 06:55 07/17/17 06:55 APTT 40 SECONDS (21-34) H 07/15/17 07:14 - Constitutional Appears: Non-toxic, No Acute Distress - Head Exam Head Exam: NORMAL INSPECTION - Eye Exam Eye Exam: EOMI - ENT Exam ENT Exam: Mucous Membranes Moist - Respiratory Exam Respiratory Exam: Decreased Breath Sounds, Rhonchi, Wheezes, NORMAL BREATHING PATTERN. absent: Stridor - Cardiovascular Exam Cardiovascular Exam: REGULAR RHYTHM, +S1, +S2 - GI/Abdominal Exam GI & Abdominal Exam: Soft, Normal Bowel Sounds. absent: Distended, Firm, Guarding, Rigid, Tenderness, Rebound - Extremities Exam Extremities Exam: absent: Pedal Edema, Tenderness - Back Exam Back Exam: absent: CVA tenderness (L), CVA tenderness (R) - Neurological Exam Neurological Exam: Alert, Awake, Oriented x3 - Skin Skin Exam: Dry, Intact, Warm Additional comments: vittligo Assessment and Plan (1) Sepsis Status: Acute (2) Pneumonia Status: Acute (3) Coronary artery bypass grafts x 4 Status: Chronic (4) Diabetes mellitus type 2 Status: Chronic (5) Thrombocytopenia Status: Acute (6) Lipid disorder Status: Chronic (7) Hypertension Status: Chronic (8) Metabolic acidosis Status: Acute (9) Chronic kidney disease Status: Acute (10) Vasculitis Status: Chronic (11) Prophylactic measure Status: Acute Attending/Attestation - Attestation I have personally seen and examined this patient.: Yes I have fully participated in the care of the patient.: Yes I have reviewed all pertinent clinical information, including history, physical exam and plan: Yes Notes (Text): Assessment and Plan (1) Sepsis Assessment & Plan: * Criteria: leukocytosis, bandemia, febrile (102.3F) Source: pneumonia * Blood cultures (07/14/17): no growth after 48 hours X2 * Urine culture (07/14/17): no growth * Sputum culture (07/15/17): pending * Lung scan (07/14/17): low probability of ventilation perfusion scan for pulmonary embolism; matching perfusion and ventilation defect at the right upper lobe may represent pneumonia or other airspace disease * Chest xray (07/16/17): dense confluent consolidation seen within the right upper to mid lung zone; prominent diffuse increased interstitial lung markings suggestive for underlying edema and or infiltrate, cardiomegaly, status post median sternotomy. right paratracheal airspace opacity may represent prominent vasculature * Azithromycin 500mg IVPB daily (active since 07/15/17) * Cefepime 0.5gm IVPB Q12H (active since 07/15/17) * Bicarbonate drip Status: Acute (2) Pneumonia Assessment & Plan: * Criteria: leukocytosis, bandemia, febrile (102.3F) Source: pneumonia * Lung scan (07/14/17): low probability of ventilation perfusion scan for pulmonary embolism; matching perfusion and ventilation defect at the right upper lobe may represent pneumonia or other airspace disease * Chest xray (07/16/17): dense confluent consolidation seen within the right upper to mid lung zone; prominent diffuse increased interstitial lung markings suggestive for underlying edema and or infiltrate, cardiomegaly, status post median sternotomy. right paratracheal airspace opacity may represent prominent vasculature * Ordered for ABG and chest xray for this morning * Azithromycin 500mg IVPB daily (active since 07/15/17) * Cefepime 0.5gm IVPB Q12H (active since 07/15/17) * Bicarbonate drip * Order for legionella, Strep pneumonia urine, and Mycoplasma IgM Status: Acute (3) Coronary artery bypass grafts x 4 Assessment & Plan: * Coreg 25mg PO BID * Plavix 75mg PO daily * Crestor 5mg POqHS * Hold Aspirin secondary to thrombocytopenia Status: Chronic (4) Diabetes mellitus type 2 Assessment & Plan: * Hgba1c: 9.7 * Crestor 5mg POqHS * Novolog sub ACHS * Lantus 15 units subqHS Status: Chronic (5) Thrombocytopenia Assessment & Plan: * Unclear if related to sepsis or secondary to HIT * Will d/c heparin given decreasing thrombocytopenia * Order for HIT and Serotonin Release Assay * Hold Aspirin given thrombocytopenia * Improving Status: Acute (6) Lipid disorder Assessment & Plan: * Check lipid panel in AM * Crestor 5mg PO qHS Status: Chronic (7) Hypertension Assessment & Plan: * Coreg 25mg PO BID * Monitor blood pressure Status: Chronic (8) Metabolic acidosis Assessment & Plan: * secondary to sepsis secondary to pneumonia Status: Acute (9) Chronic kidney disease Assessment & Plan: * Nephrology (Dr. Everett) on board-->help appreciated * Renal biopsy: secondary to MPO ANCA vasculitis * Hold barbie/arb due to hyperkalemia * no acute need for renal replacement therapy at this time * d/c neurotonin to avoid neurotoxicity in severe CHARLEE Status: Acute (10) Vasculitis Status: Chronic (11) Prophylactic measure Assessment & Plan: * Heparin d/c secondary to thrombocytopenia * Pepcid 20mg PO daily for GI ppx * Tylenol 650mg PO Q 6H PRN * Pt/OT eval * Chest physiotherapy Status: Acute
[2017-07-17] MEDS: Sodium Chloride 0.45% 1,000 ML IV SCH ×2 (08:30→21:27)
[2017-07-17 08:34] LABS: STREPTOCOCCUS B NEGATIVE (NEGATIVE)
[2017-07-17 08:43] LABS: ABG ALLEN TEST POS; ARTERIAL BLOOD GAS HCO3 23.4 mmol/L (21-28); ARTERIAL BLOOD GAS HEMOGLOBIN 9.9 g/dL (11.7-17.4); ARTERIAL BLOOD GAS O2 SAT 99.7 % (95-98); ARTERIAL BLOOD GAS PCO2 34 mm/Hg (35-45); ARTERIAL BLOOD GAS PH 7.42 (7.35-7.45); ARTERIAL BLOOD GAS PO2 161 mm/Hg (80-100); ARTERIAL BLOOD GAS TCO2 23.1 mmol/L (22-28)
[2017-07-17] MEDS: Azithromycin 500 MG in Sodium Chloride 0.9% 250 ML IVPB SCH (09:30)
[2017-07-17 09:32] LABS: ANISOCYTOSIS SLIGHT; BANDS 3 % (0-2); EOSINOPHIL 2 % (0-4); LYMPHOCYTE 7 % (20-40); MONOCYTE 9 % (0-10); NEUTROPHIL 79 % (50-75); PLATELET ESTIMATE DECREASED (NORMAL); TOTAL CELLS COUNTED 100
[2017-07-17 09:34] LABS: OVALOCYTES SLIGHT; POIKILOCYTOSIS SLIGHT
[2017-07-17] MEDS: guaiFENesin 600 mg ER Tab PO SCH ×2 (09:35→17:33)
--- NOTE | 2017-07-17 11:51 | RAD ---
HISTORY: pneumonia COMPARISON: Portable chest 07/16/2017. FINDINGS: LUNGS: Persistent right upper lobe infiltrate unchanged. No new infiltrate remaining lung [place] bilaterally. PLEURA: No significant pleural effusion identified, no pneumothorax apparent. CARDIOVASCULAR: Stable cardiomegaly. Sternotomy wires again seen. OSSEOUS STRUCTURES: No significant abnormalities. VISUALIZED UPPER ABDOMEN: Normal. OTHER FINDINGS: None. IMPRESSION: Stable chest radiography without interval change of right upper lobe infiltrate. No pleural effusion bilaterally or new infiltrate otherwise. Stable cardiomegaly without pulmonary vascular congestion.
--- NOTE | 2017-07-17 12:39 | CP.CCUPN ---
CCU Subjective - Physician Review Events Since Last Encounter (Free Text): 07/17/17 12:36 Patient is a 76-year-old male with a history of CAD, CABG, diabetes and hypertension history of vasculitis. Patient admitted with acute pneumonia involving the right upper lung. Sputum culture and blood culture negative Patient was initially hospitalized to medical floor, and again was transferred to intensive care unit because of the worsening shortness of breath. Patient slowly improving in his overall condition In nasal cannula oxygen saturation is 100%. Diffuse bilateral wheezing noted, minimal cough also noted. Patient is out of bed to chair today. Mo catheter was discontinued Critical Care Time Spent (in minutes): 45 CCU Objective - Vital Signs / Intake & Output Vital Signs (Last 4 hours): Vital Signs Pulse Resp BP Pulse Ox 07/17/17 10:00 74 18 98 07/17/17 09:53 76 13 141/73 97 07/17/17 09:41 151/85 H 07/17/17 09:00 82 21 99 07/17/17 08:53 73 17 151/85 H 97 Intake and Output (Last 8hrs): Intake & Output 07/16/17 07/17/17 07/17/17 22:59 06:59 14:59 Intake Total 1000 1510 960 Output Total 845 920 450 Balance 155 590 510 Weight 221 lb 0.6 oz Intake: Intake, IV Amount 1000 1050 520 Left Wrist 50 Left hand 1000 1000 520 Oral 460 440 Output: Urine 845 920 450 Urethral (Mo) 845 920 450 Stool 0 0 Emesis 0 0 0 Other: # Bowel Movements 0 0 1 - Physical Exam Narrative Physical Exam (Free Text): 07/17/17 12:37 Diffuse bilateral wheezing noted. Chest good air entry bilaterally noted irregular heart sound. Nontender abdomen. Pedal edema about 2+ noted Head: Positive for: Atraumatic, Normocephalic Extroacular Muscles: Positive for: EOMI Conjunctiva: Positive for: Normal Respiratory/Chest: Positive for: Clear to Auscultation, Decreased Breath Sounds Cardiovascular: Positive for: Regular Rate and Rhythm, Normal S1, S2 Abdomen: Positive for: Normal Bowel Sounds. Negative for: Tenderness Neurological: Positive for: GCS=15, Speech Normal - Medications Active Medications: Active Medications Generic Name Dose Route Start Last Admin Trade Name Freq PRN Reason Stop Dose Admin Acetaminophen 650 mg 07/14/17 20:00 05/10/18 23:39 Tylenol 325mg Tab PO 650 mg Q6 PRN Administration Fever >100.4 F Albuterol/Ipratropium 3 ml 07/17/17 14:00 Duoneb 3 Mg/0.5 Mg (3 Ml) Ud INH RQ6 [facility] Carvedilol 25 mg 07/14/17 18:00 07/17/17 09:41 Coreg PO 25 mg BID [facility]AW[facility] Administration Clopidogrel Bisulfate 75 mg 07/15/17 10:00 07/17/17 09:35 Plavix PO 75 mg DAILY [facility] Administration Guaifenesin 600 mg 07/14/17 18:00 07/17/17 09:35 Mucinex La PO 600 mg BID [facility] Administration Azithromycin 500 mg/ Sodium 250 mls @ 250 mls/hr 07/15/17 10:00 07/17/17 09: 30 Chloride IVPB 250 mls/hr DAILY [facility] Administration Protocol Cefepime HCl 0.5 gm/ Sodium 50 mls @ 100 mls/hr 07/15/17 10:00 07/17/17 09:36 Chloride IVPB 100 mls/hr Q12 [facility] Administration Protocol Sodium Chloride 1,000 mls @ 45 mls/hr 07/17/17 09:04 07/17/17 08:30 Sodium Chloride 0.45% IV 45 mls/hr .[id number] [facility] Administration Insulin Aspart 0 unit 07/14/17 22:00 07/17/17 07:45 Novolog SC 2 unit ACHS [facility] Administration Protocol Insulin Glargine 15 unit 07/14/17 22:00 07/16/17 21:09 Lantus SC 15 units HS [facility] Administration Rosuvastatin Calcium 5 mg 07/14/17 22:00 07/16/17 21:11 Crestor PO 5 mg HS [facility] Administration - Patient Studies Lab Studies: Microbiology Studies 07/15/17 15:40 Gram Stain - Final Sputum Sputum Culture - Final NORMAL ORAL [place] 07/15/17 12:39 MRSA Culture (Admit) - Final Nose MRSA NOT DETECTED 07/14/17 14:15 Blood Culture - Preliminary Blood NO GROWTH AFTER 48 HOURS 07/14/17 14:45 Blood Culture - Preliminary Blood NO GROWTH AFTER 48 HOURS Lab Studies 07/17/17 07/17/17 07/17/17 Range/Units 11:28 08:38 07:51 WBC (4.8-10.8) K/uL RBC (4.40-5.90) Mil/uL Hgb (12.0-18.0) g/dL Hct (35.0-51.0) % MCV (80.0-94.0) fL MCH (27.0-31.0) pg MCHC (33.0-37.0) g/dL RDW (11.5-14.5) % Plt Count (130-400) K/uL MPV (7.2-11.7) fL Neut % (Auto) (50.0-75.0) % Lymph % (Auto) (20.0-40.0) % [place] % (Auto) (0.0-10.0) % Eos % (Auto) (0.0-4.0) % Baso % (Auto) (0.0-2.0) % Neut # (Auto) (1.8-7.0) K/uL Lymph # (Auto) (1.0-4.3) K/uL [place] # (Auto) (0.0-0.8) K/uL Eos # (Auto) (0.0-0.7) K/uL Baso # (Auto) (0.0-0.2) K/uL Neutrophils % (Manual) (50-75) % Band Neutrophils % (0-2) % Lymphocytes % (Manual) (20-40) % Monocytes % (Manual) (0-10) % Eosinophils % (Manual) (0-4) % Platelet Estimate (NORMAL) Poikilocytosis (manual Anisocytosis (manual) Ovalocytes Puncture Site Ra pCO2 34 L (35-45) mm/Hg pO2 161 H (80-100) mm/Hg HCO3 23.4 (21-28) mmol/L ABG pH 7.42 (7.35-7.45) ABG Total CO2 23.1 (22-28) mmol/L ABG O2 Saturation 99.7 H (95-98) % ABG Base Excess -1.9 (-2.0-3.0) mmol/L ABG Hemoglobin 9.9 L (11.7-17.4) g/dL ABG Carboxyhemoglobin 2.2 H (0.5-1.5) % POC ABG HHb (Measured) 0.3 (0.0-5.0) % ABG Methemoglobin 1.3 (0.0-3.0) % Warner Test Pos Hgb O2 Saturation 96.2 (95.0-98.0) % Liter Flow 4.0 Sodium (132-148) mmol/L Potassium (3.6-5.2) mmol/L Chloride (98-107) mmol/L Carbon Dioxide (22-30) mmol/L Anion Gap (10-20) BUN (9-20) mg/dL Creatinine (0.8-1.5) mg/dL Est GFR ( Amer) Est GFR (Non-Af Amer) POC Glucose (mg/dL) 169 H 156 H (65-110) mg/dL Random Glucose (75-110) mg/dL Calcium (8.6-10.4) mg/dl Phosphorus (2.5-4.5) mg/dL Magnesium (1.6-2.3) mg/dL Total Bilirubin (0.2-1.3) mg/dL AST (17-59) U/L ALT (21-72) U/L Alkaline Phosphatase (38-126) U/L Total Protein (6.3-8.3) g/dL Albumin (3.5-5.0) g/dL Globulin (2.2-3.9) gm/dL Albumin/Globulin Ratio (1.0-2.1) Ur L.pneumophila Ag (NEGATIVE) Group B Strep Antigen (NEGATIVE) 07/17/17 07/17/17 07/17/17 Range/Units 06:55 06:55 06:55 WBC 10.6 (4.8-10.8) K/uL RBC 3.26 L (4.40-5.90) Mil/uL Hgb 9.9 L (12.0-18.0) g/dL Hct 29.7 L (35.0-51.0) % MCV 91.0 (80.0-94.0) fL MCH 30.4 (27.0-31.0) pg MCHC 33.4 (33.0-37.0) g/dL RDW 15.6 H (11.5-14.5) % Plt Count 87 L (130-400) K/uL MPV 11.4 (7.2-11.7) fL Neut % (Auto) 84.3 H (50.0-75.0) % Lymph % (Auto) 8.4 L (20.0-40.0) % [place] % (Auto) 4.1 (0.0-10.0) % Eos % (Auto) 2.8 (0.0-4.0) % Baso % (Auto) 0.4 (0.0-2.0) % Neut # (Auto) 8.9 H (1.8-7.0) K/uL Lymph # (Auto) 0.9 L (1.0-4.3) K/uL [place] # (Auto) 0.4 (0.0-0.8) K/uL Eos # (Auto) 0.3 (0.0-0.7) K/uL Baso # (Auto) 0.0 (0.0-0.2) K/uL Neutrophils % (Manual) 79 H (50-75) % Band Neutrophils % 3 H (0-2) % Lymphocytes % (Manual) 7 L (20-40) % Monocytes % (Manual) 9 (0-10) % Eosinophils % (Manual) 2 (0-4) % Platelet Estimate Decreased L (NORMAL) Poikilocytosis (manual Slight Anisocytosis (manual) Slight Ovalocytes Slight Puncture Site pCO2 (35-45) mm/Hg pO2 (80-100) mm/Hg HCO3 (21-28) mmol/L ABG pH (7.35-7.45) ABG Total CO2 (22-28) mmol/L ABG O2 Saturation (95-98) % ABG Base Excess (-2.0-3.0) mmol/L ABG Hemoglobin (11.7-17.4) g/dL ABG Carboxyhemoglobin (0.5-1.5) % POC ABG HHb (Measured) (0.0-5.0) % ABG Methemoglobin (0.0-3.0) % Warner Test Hgb O2 Saturation (95.0-98.0) % Liter Flow Sodium 140 (132-148) mmol/L Potassium 3.8 (3.6-5.2) mmol/L Chloride 105 (98-107) mmol/L Carbon Dioxide 26 (22-30) mmol/L Anion Gap 12 (10-20) BUN 43 H (9-20) mg/dL Creatinine 2.6 H (0.8-1.5) mg/dL Est GFR ( Amer) 29 Est GFR (Non-Af Amer) 24 POC Glucose (mg/dL) (65-110) mg/dL Random Glucose 175 H (75-110) mg/dL Calcium 8.3 L (8.6-10.4) mg/dl Phosphorus 3.3 (2.5-4.5) mg/dL Magnesium 1.9 (1.6-2.3) mg/dL Total Bilirubin 0.6 (0.2-1.3) mg/dL AST 15 L (17-59) U/L ALT 16 L (21-72) U/L Alkaline Phosphatase 81 (38-126) U/L Total Protein 5.6 L (6.3-8.3) g/dL Albumin 2.8 L (3.5-5.0) g/dL Globulin 2.8 (2.2-3.9) gm/dL Albumin/Globulin Ratio 1.0 (1.0-2.1) Ur L.pneumophila Ag Negative (NEGATIVE) Group B Strep Antigen (NEGATIVE) 07/16/17 07/16/17 07/16/17 Range/Units 21:27 16:11 07:20 WBC (4.8-10.8) K/uL RBC (4.40-5.90) Mil/uL Hgb (12.0-18.0) g/dL Hct (35.0-51.0) % MCV (80.0-94.0) fL MCH (27.0-31.0) pg MCHC (33.0-37.0) g/dL RDW (11.5-14.5) % Plt Count (130-400) K/uL MPV (7.2-11.7) fL Neut % (Auto) (50.0-75.0) % Lymph % (Auto) (20.0-40.0) % [place] % (Auto) (0.0-10.0) % Eos % (Auto) (0.0-4.0) % Baso % (Auto) (0.0-2.0) % Neut # (Auto) (1.8-7.0) K/uL Lymph # (Auto) (1.0-4.3) K/uL [place] # (Auto) (0.0-0.8) K/uL Eos # (Auto) (0.0-0.7) K/uL Baso # (Auto) (0.0-0.2) K/uL Neutrophils % (Manual) (50-75) % Band Neutrophils % (0-2) % Lymphocytes % (Manual) (20-40) % Monocytes % (Manual) (0-10) % Eosinophils % (Manual) (0-4) % Platelet Estimate (NORMAL) Poikilocytosis (manual Anisocytosis (manual) Ovalocytes Puncture Site pCO2 (35-45) mm/Hg pO2 (80-100) mm/Hg HCO3 (21-28) mmol/L ABG pH (7.35-7.45) ABG Total CO2 (22-28) mmol/L ABG O2 Saturation (95-98) % ABG Base Excess (-2.0-3.0) mmol/L ABG Hemoglobin (11.7-17.4) g/dL ABG Carboxyhemoglobin (0.5-1.5) % POC ABG HHb (Measured) (0.0-5.0) % ABG Methemoglobin (0.0-3.0) % Warner Test Hgb O2 Saturation (95.0-98.0) % Liter Flow Sodium (132-148) mmol/L Potassium (3.6-5.2) mmol/L Chloride (98-107) mmol/L Carbon Dioxide (22-30) mmol/L Anion Gap (10-20) BUN (9-20) mg/dL Creatinine (0.8-1.5) mg/dL Est GFR ( Amer) Est GFR (Non-Af Amer) POC Glucose (mg/dL) 209 H 226 H (65-110) mg/dL Random Glucose (75-110) mg/dL Calcium (8.6-10.4) mg/dl Phosphorus (2.5-4.5) mg/dL Magnesium (1.6-2.3) mg/dL Total Bilirubin (0.2-1.3) mg/dL AST (17-59) U/L ALT (21-72) U/L Alkaline Phosphatase (38-126) U/L Total Protein (6.3-8.3) g/dL Albumin (3.5-5.0) g/dL Globulin (2.2-3.9) gm/dL Albumin/Globulin Ratio (1.0-2.1) Ur L.pneumophila Ag (NEGATIVE) Group B Strep Antigen Negative (NEGATIVE) Laboratory Results - last 24 hr 07/16/17 07/16/17 07/16/17 07:20 16:11 21:27 WBC RBC Hgb Hct MCV MCH MCHC RDW Plt Count MPV Neut % (Auto) Lymph % (Auto) [place] % (Auto) Eos % (Auto) Baso % (Auto) Neut # (Auto) Lymph # (Auto) [place] # (Auto) Eos # (Auto) Baso # (Auto) Neutrophils % (Manual) Band Neutrophils % Lymphocytes % (Manual) Monocytes % (Manual) Eosinophils % (Manual) Platelet Estimate Poikilocytosis (manual Anisocytosis (manual) Ovalocytes Puncture Site pCO2 pO2 HCO3 ABG pH ABG Total CO2 ABG O2 Saturation ABG Base Excess ABG Hemoglobin ABG Carboxyhemoglobin POC ABG HHb (Measured) ABG Methemoglobin Warner Test Hgb O2 Saturation Liter Flow Sodium Potassium Chloride Carbon Dioxide Anion Gap BUN Creatinine Est GFR ( Amer) Est GFR (Non-Af Amer) POC Glucose (mg/dL) 226 H 209 H Random Glucose Calcium Phosphorus Magnesium Total Bilirubin AST ALT Alkaline Phosphatase Total Protein Albumin Globulin Albumin/Globulin Ratio Ur L.pneumophila Ag Group B Strep Antigen Negative 07/17/17 07/17/17 07/17/17 06:55 06:55 06:55 WBC 10.6 RBC 3.26 L Hgb 9.9 L Hct 29.7 L MCV 91.0 MCH 30.4 MCHC 33.4 RDW 15.6 H Plt Count 87 L MPV 11.4 Neut % (Auto) 84.3 H Lymph % (Auto) 8.4 L [place] % (Auto) 4.1 Eos % (Auto) 2.8 Baso % (Auto) 0.4 Neut # (Auto) 8.9 H Lymph # (Auto) 0.9 L [place] # (Auto) 0.4 Eos # (Auto) 0.3 Baso # (Auto) 0.0 Neutrophils % (Manual) 79 H Band Neutrophils % 3 H Lymphocytes % (Manual) 7 L Monocytes % (Manual) 9 Eosinophils % (Manual) 2 Platelet Estimate Decreased L Poikilocytosis (manual Slight Anisocytosis (manual) Slight Ovalocytes Slight Puncture Site pCO2 pO2 HCO3 ABG pH ABG Total CO2 ABG O2 Saturation ABG Base Excess ABG Hemoglobin ABG Carboxyhemoglobin POC ABG HHb (Measured) ABG Methemoglobin Warner Test Hgb O2 Saturation Liter Flow Sodium 140 Potassium 3.8 Chloride 105 Carbon Dioxide 26 Anion Gap 12 BUN 43 H Creatinine 2.6 H Est GFR ( Amer) 29 Est GFR (Non-Af Amer) 24 POC Glucose (mg/dL) Random Glucose 175 H Calcium 8.3 L Phosphorus 3.3 Magnesium 1.9 Total Bilirubin 0.6 AST 15 L ALT 16 L Alkaline Phosphatase 81 Total Protein 5.6 L Albumin 2.8 L Globulin 2.8 Albumin/Globulin Ratio 1.0 Ur L.pneumophila Ag Negative Group B Strep Antigen 07/17/17 07/17/17 07/17/17 07:51 08:38 11:28 WBC RBC Hgb Hct MCV MCH MCHC RDW Plt Count MPV Neut % (Auto) Lymph % (Auto) [place] % (Auto) Eos % (Auto) Baso % (Auto) Neut # (Auto) Lymph # (Auto) [place] # (Auto) Eos # (Auto) Baso # (Auto) Neutrophils % (Manual) Band Neutrophils % Lymphocytes % (Manual) Monocytes % (Manual) Eosinophils % (Manual) Platelet Estimate Poikilocytosis (manual Anisocytosis (manual) Ovalocytes Puncture Site Ra pCO2 34 L pO2 161 H HCO3 23.4 ABG pH 7.42 ABG Total CO2 23.1 ABG O2 Saturation 99.7 H ABG Base Excess -1.9 ABG Hemoglobin 9.9 L ABG Carboxyhemoglobin 2.2 H POC ABG HHb (Measured) 0.3 ABG Methemoglobin 1.3 Warner Test Pos Hgb O2 Saturation 96.2 Liter Flow 4.0 Sodium Potassium Chloride Carbon Dioxide Anion Gap BUN Creatinine Est GFR ( Amer) Est GFR (Non-Af Amer) POC Glucose (mg/dL) 156 H 169 H Random Glucose Calcium Phosphorus Magnesium Total Bilirubin AST ALT Alkaline Phosphatase Total Protein Albumin Globulin Albumin/Globulin Ratio Ur L.pneumophila Ag Group B Strep Antigen Fingerstick Blood Sugar Results: 175 Review of Systems - Review of Systems All systems: reviewed and no additional remarkable complaints except Review of Systems: Bilateral leg swelling 1+ noted. Mo catheter discontinued He has no headache. But chest tightness complaining Wheezing bilaterally noted Abdomen no pain, no vomiting. Critical Care Progress Note - Nutrition Nutrition: Nutrition Category Date Time Status Heart Healthy Diet [DIET] Diets 07/14/17 Dinner Active Assessment/Plan (1) Pneumonia Assessment and plan: Patient admitted to the intensive care unit with acute upper lobe pneumonia Patient had a fever, but febrile illness. Personal for the culture is negative Currently on antibiotic appropriate for community-acquired pneumonia, he is also responding clinically. Acute renal insufficiency, improving, currently off bicarbonate drip. IV fluid to be continued Echocardiogram to evaluate the renal function. Patient is currently stable at this time, low hemoglobin, low platelet noted, most likely related to the sepsis. We will monitor the numbers, prophylactic anticoagulation is currently off because of the low platelets. If the hemoglobin and platelet is stable, will resume. Patient can be transferred to floor probably once he is more stable Current Visit: Yes Status: Acute
--- NOTE | 2017-07-17 16:23 | CP.PCM.PN ---
Subjective - Date & Time of Evaluation Date of Evaluation: 07/17/17 Time of Evaluation: 16:23 - Subjective Subjective: Nephrology Consultation Note Assesemnt: Stable RUL pneumonia with septic shock HAGMA with hyperkalemia, hyperphosphatemia CHARLEE on CKD stage 4 likely hemodynamic ? 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 hold ACEI/ARB due to hyperkalemia no acute need for renal replacement therapy at this time Monitor Input/Output, daily weights and renal function with basic metabolic panel d/c neurontin to avoid neurotoxicity in severe CHARLEE resume supplement Vit D 1000/day and continue iron tab 325 mg TID with meals once pt stable. Dose meds/antibiotics for reduced GFR. Avoid fleets enema/magnesium based laxatives. Avoid nephrotoxins/NSAIDs/ iodinated contrast (unless needed emergently) Glycemic control Further work up/management as per primary team Thanks for allowing me to participate in care of your patient. Will follow patient with you. Please call if any Qs. had d/w team and Ronen [place] Office: [phone] CC: shortness of breath and Pneumonia reason for consult: CHARLEE HPI: He is a 76 y/o M hx of CAD s/p CABG, DM, HTN since 2006, MPO ANCA vasculitis s/p kidney biopsy [facility] [place] 08/31/2016. He had completed 4 doses of rituxan on oct 08 2016 with remission of renal vasculitis but has CKD stage 3/ 4 (baseline cr 2.3-2.4) recent removal of lump from Rt upper arm at [facility] came with SOB x 1 day and found to have RUL pneumonia with septic shock , renal consult for CHARLEE he feels bit better. still has SOB and cough. has monahan catheter ROS: Cardiovascular: No chest pain. Pulmonary: improved shortness of breath Gastrointestinal: denies abdominal pain No nausea. No vomiting. Genitourinary: No pain while urinating. Denies blood in urine. Rest all other negative except as mentioned in HPI exam: General Appearance: Comfortable, in no acute respiratory distress, co- operative . better appearing, obese Vitals reviewed and noted Head; Atraumatic, normocephalic ENT: no ulcers no thrush. Tongue is midline. Oropharynx: no rash or ulcers. EYES: Pupils are equal, round and reactive to light accommodation. Eye muscles and extraocular movement intact. Sclera is anicteric. Neck; supple no lymphadenopathy, no thyromegaly or bruit Lungs: improved respiratory rate/effort. Breath sounds bilateral + improved Heart: Normal rate. s1s2 normal. No rub or gallop. Extremities: no edema. No varicose veins Neurological: Patient is alert, awake and oriented to person, place and time. No focal deficit. Strength bilateral appropriate and equal Skin: Warm and dry. Normal turgor. has vitiligo. Palpitation: Normal elasticity for age Abdomen: Abdomen is soft. Bowel sounds +. There is no abdominal tenderness, no guarding/rigidity or organomegaly Psych: normal insight and normal affect/mood MSK: no joint tenderness or swelling. Digits and nails normal, no deformity. has firm swelling over Rt humerus, mobile ? lipoma : kidney or bladder not palpable. has monahan Labs/imaging reviewed. Past medical history, past surgical history, family history, social history, allergy reviewed and noted as below Family hx: no hx of CKD. 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 Interstitial hemorrhage, RBC with casts in tubules, thyroidization of tubules, arterial intimal thickening and mild interstitial fibrosis. No glomerulus for IF or EM. 03/12/17: UA 30 protein no blood. pr/cr 245 mg/gr Ferritin 51 TSAT 30% PTH 178 Vit D 31 NA 145 K 4.4 Bicarb 23 BUN/Cr 39/3.1 Ca 9.2 GLucose 94 04/12/17: MPO titer >1:640, Sodium 146 potassium 4.4 bicarbonate 27 BU and 36 creatinine 2.3 MDRD GFR 30 Hemoglobin 12 UA no blood had 30 protein ratio of pr/ cr 245 mg/g of creatinine 06/09/17: UA 30 protein no blood but pr/cr ratio of 1031 mg/gr microalbumin >300 NA 144 K 5.1 BUN 39 cr 2.4 bicarb 22 (GFR 28) K 5.1 Hb 11.6 Objective - Vital Signs/Intake and Output Vital Signs (last 24 hours): Temp Pulse Resp BP Pulse Ox 99 F 75 18 124/102 H 99 07/17/17 12:00 07/17/17 14:00 07/17/17 14:00 07/17/17 13:53 07/17/17 14:00 Intake and Output: 07/17/17 07/17/17 06:59 18:59 Intake Total 20095 Output Total 1505 1450 Balance 505 1215 - Medications Medications: Current Medications Acetaminophen (Tylenol 325mg Tab) 650 mg PO Q6 PRN PRN Reason: Fever >100.4 F Last Admin: 07/15/17 23:39 Dose: 650 mg Albuterol/Ipratropium (Duoneb 3 Mg/0.5 Mg (3 Ml) Ud) 3 ml INH RQ6 [facility] Last Admin: 07/17/17 13:25 Dose: 3 ml Carvedilol (Coreg) 25 mg PO BID [facility] Last Admin: 07/17/17 09:41 Dose: 25 mg Clopidogrel Bisulfate (Plavix) 75 mg PO DAILY [facility] Last Admin: 07/17/17 09:35 Dose: 75 mg Guaifenesin (Mucinex La) 600 mg PO BID [facility] Last Admin: 07/17/17 09:35 Dose: 600 mg Azithromycin 500 mg/ Sodium (Chloride) 250 mls @ 250 mls/hr IVPB DAILY [facility] PRN Reason: Protocol Last Admin: 07/17/17 09:30 Dose: 250 mls/hr Cefepime HCl 0.5 gm/ Sodium (Chloride) 50 mls @ 100 mls/hr IVPB Q12 [facility] PRN Reason: Protocol Last Admin: 07/17/17 09:36 Dose: 100 mls/hr Sodium Chloride (Sodium Chloride 0.45%) 1,000 mls @ 45 mls/hr IV .[id number] [facility] Last Admin: 07/17/17 08:30 Dose: 45 mls/hr Insulin Aspart (Novolog) 0 unit SC ACHS [facility] PRN Reason: Protocol Last Admin: 07/17/17 11:50 Dose: 2 unit Insulin Glargine (Lantus) 15 unit SC HS [facility] Last Admin: 07/16/17 21:09 Dose: 15 units Rosuvastatin Calcium (Crestor) 5 mg PO HS [facility] Last Admin: 07/16/17 21:11 Dose: 5 mg - Labs Labs: 07/17/17 06:55 07/17/17 06:55 APTT 40 SECONDS (21-34) H 07/15/17 07:14
[2017-07-17 16:39] LABS: MYCOPLASMA PNEUMONIAE IGM NEGATIVE (NEGATIVE)
[2017-07-17] MEDS: (Lantus) Insulin Glargine, Recombinant SC SCH (21:29)
[2017-07-18] MEDS: Albuterol-Ipratrop 3 mg / 0.5 (3 ml) UD INH SCH ×7 (01:15→20:04)
[2017-07-18 06:42] LABS: BASO % 0.4 % (0.0-2.0); EOS # 0.2 K/uL (0.0-0.7); EOS % 3.2 % (0.0-4.0); HEMOGLOBIN 9.9 g/dL (12.0-18.0); LYMPH # 0.7 K/uL (1.0-4.3); LYMPH % 9.3 % (20.0-40.0); MEAN CELL VOLUME 91.3 fL (80.0-94.0); MEAN CORPUSCULAR HEMOGLOBIN 30.8 pg (27.0-31.0); MEAN CORPUSCULAR HGB CONC 33.8 g/dL (33.0-37.0); MEAN PLATELET VOLUME 11.4 fL (7.2-11.7); MONO # 0.6 K/uL (0.0-0.8); MONO % 8.4 % (0.0-10.0); NEUT # 5.9 K/uL (1.8-7.0); NEUT % 78.7 % (50.0-75.0); PLATELET COUNT 83 K/uL (130-400); RED CELL DISTRIBUTION WIDTH 15.7 % (11.5-14.5); WHITE BLOOD COUNT 7.5 K/uL (4.8-10.8)
[2017-07-18 07:00] LABS: ALB/GLOB RATIO 0.9 (1.0-2.1); ALBUMIN 2.7 g/dL (3.5-5.0); CALCIUM 8.3 mg/dl (8.6-10.4)
--- NOTE | 2017-07-18 07:40 | CP.PCM.PN ---
Subjective - Date & Time of Evaluation Date of Evaluation: 07/18/17 Time of Evaluation: 07:25 - Subjective Subjective: Hospitalist Service Covering Dr. Peralta service (until 07/19). Medical Attending Note: Patient seen and examined at bedside. Patient's present at bedside. Patient reports throughout the night he was wheezing. He reports shortness of breathe is getting better. Patient receiving nebulizer treatment this morning. Patient able to sit upright and was in chair for part of the day. Patient reports last bowel movement was the day before yesterday. patient denies nausea , denies abdominal pain, denies nausea, and reports he is urinating. Objective - Vital Signs/Intake and Output Vital Signs (last 24 hours): Temp Pulse Resp BP Pulse Ox 99.1 F 77 26 H 185/71 H 98 07/18/17 04:00 07/18/17 06:00 07/18/17 06:00 07/18/17 05:54 07/18/17 06:00 Intake and Output: 07/18/17 07/18/17 06:59 18:59 Intake Total 892 Output Total 2500 Balance -1608 - Medications Medications: Current Medications Acetaminophen (Tylenol 325mg Tab) 650 mg PO Q6 PRN PRN Reason: Fever >100.4 F Last Admin: 07/15/17 23:39 Dose: 650 mg Albuterol/Ipratropium (Duoneb 3 Mg/0.5 Mg (3 Ml) Ud) 3 ml INH RQ6 [facility] Last Admin: 07/18/17 07:26 Dose: 3 ml Carvedilol (Coreg) 25 mg PO BID [facility] Last Admin: 07/17/17 17:33 Dose: 25 mg Clopidogrel Bisulfate (Plavix) 75 mg PO DAILY [facility] Last Admin: 07/17/17 09:35 Dose: 75 mg Ferrous Gluconate (Fergon) 324 mg PO TID [facility] Last Admin: 07/17/17 17:39 Dose: 324 mg Guaifenesin (Mucinex La) 600 mg PO BID [facility] Last Admin: 07/17/17 17:33 Dose: 600 mg Azithromycin 500 mg/ Sodium (Chloride) 250 mls @ 250 mls/hr IVPB DAILY [facility] PRN Reason: Protocol Last Admin: 07/17/17 09:30 Dose: 250 mls/hr Cefepime HCl 0.5 gm/ Sodium (Chloride) 50 mls @ 100 mls/hr IVPB Q12 [facility] PRN Reason: Protocol Last Admin: 07/17/17 21:30 Dose: 100 mls/hr Sodium Chloride (Sodium Chloride 0.45%) 1,000 mls @ 45 mls/hr IV .[id number] [facility] Last Admin: 07/17/17 21:27 Dose: 45 mls/hr Insulin Aspart (Novolog) 0 unit SC ACHS [facility] PRN Reason: Protocol Last Admin: 07/17/17 21:28 Dose: Not Given Insulin Glargine (Lantus) 15 unit SC HS [facility] Last Admin: 07/17/17 21:29 Dose: 15 units Rosuvastatin Calcium (Crestor) 5 mg PO HS [facility] Last Admin: 07/17/17 21:30 Dose: 5 mg Vitamin B Complex/Vit C/Folic Acid (Nephro-Keith) 1 tab PO 0800 [facility] - Labs Labs: 07/18/17 06:34 07/18/17 06:37 APTT 40 SECONDS (21-34) H 07/15/17 07:14 - Constitutional Appears: Non-toxic, No Acute Distress - Head Exam Head Exam: NORMAL INSPECTION - Eye Exam Eye Exam: EOMI - ENT Exam ENT Exam: Mucous Membranes Moist - Respiratory Exam Respiratory Exam: Decreased Breath Sounds, Rhonchi, Wheezes, NORMAL BREATHING PATTERN. absent: Respiratory Distress, Stridor - Cardiovascular Exam Cardiovascular Exam: REGULAR RHYTHM, +S1, +S2 - GI/Abdominal Exam GI & Abdominal Exam: Distended (obese habitus), Soft, Normal Bowel Sounds. absent: Firm, Guarding, Rigid, Tenderness, Rebound - Extremities Exam Extremities Exam: absent: Pedal Edema, Tenderness - Neurological Exam Neurological Exam: Alert, Awake, Oriented x3 - Psychiatric Exam Psychiatric exam: Normal Affect, Normal Mood - Skin Skin Exam: Dry, Intact, Normal Color, Warm Assessment and Plan (1) Sepsis Status: Acute (2) Pneumonia Status: Acute (3) Coronary artery bypass grafts x 4 Status: Chronic (4) Diabetes mellitus type 2 Status: Chronic (5) Thrombocytopenia Status: Acute (6) Lipid disorder Status: Chronic (7) Hypertension Status: Chronic (8) Metabolic acidosis Status: Acute (9) Chronic kidney disease Status: Acute (10) Vasculitis Status: Chronic (11) Prophylactic measure Status: Acute Attending/Attestation - Attestation I have personally seen and examined this patient.: Yes I have fully participated in the care of the patient.: Yes I have reviewed all pertinent clinical information, including history, physical exam and plan: Yes Notes (Text): Assessment and Plan (1) Sepsis Assessment & Plan: * Criteria: leukocytosis, bandemia, febrile (102.3F) Source: pneumonia * Blood cultures (07/14/17): no growth after 3 days X2 * Urine culture (07/14/17): no growth * Sputum culture (07/15/17): pending * Lung scan (07/14/17): low probability of ventilation perfusion scan for pulmonary embolism; matching perfusion and ventilation defect at the right upper lobe may represent pneumonia or other airspace disease * Chest xray (07/16/17): dense confluent consolidation seen within the right upper to mid lung zone; prominent diffuse increased interstitial lung markings suggestive for underlying edema and or infiltrate, cardiomegaly, status post median sternotomy. right paratracheal airspace opacity may represent prominent vasculature * Azithromycin 500mg IVPB daily (active since 07/15/17) * Cefepime 0.5gm IVPB Q12H (active since 07/15/17) * Switch to NS 45 cc/hr (since 07/17/17) Status: Acute (2) Pneumonia Assessment & Plan: * Criteria: leukocytosis, bandemia, febrile (102.3F) Source: pneumonia * Lung scan (07/14/17): low probability of ventilation perfusion scan for pulmonary embolism; matching perfusion and ventilation defect at the right upper lobe may represent pneumonia or other airspace disease * Chest xray (07/16/17): dense confluent consolidation seen within the right upper to mid lung zone; prominent diffuse increased interstitial lung markings suggestive for underlying edema and or infiltrate, cardiomegaly, status post median sternotomy. right paratracheal airspace opacity may represent prominent vasculature * Azithromycin 500mg IVPB daily (active since 07/15/17) * Cefepime 0.5gm IVPB Q12H (active since 07/15/17) Status: Acute (3) Coronary artery bypass grafts x 4 Assessment & Plan: * Coreg 25mg PO BID * Plavix 75mg PO daily * Crestor 5mg POqHS * Hold Aspirin secondary to thrombocytopenia Status: Chronic (4) Diabetes mellitus type 2 Assessment & Plan: * Hgba1c: 9.7 * Crestor 5mg POqHS * Novolog sub ACHS * Lantus 15 units subqHS Status: Chronic (5) Thrombocytopenia Assessment & Plan: * Unclear if related to sepsis or secondary to HIT * Will d/c heparin given decreasing thrombocytopenia * Order for HIT and Serotonin Release Assay--->pending * Hold Aspirin given thrombocytopenia * Improving Status: Acute (6) Lipid disorder Assessment & Plan: * Crestor 5mg PO qHS Status: Chronic (7) Hypertension Assessment & Plan: * Coreg 25mg PO BID * Monitor blood pressure Status: Chronic (8) Metabolic acidosis Assessment & Plan: * secondary to sepsis secondary to pneumonia Status: Acute (9) Chronic kidney disease Assessment & Plan: * Nephrology (Dr. 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
[2017-07-18] MEDS: Sodium Chloride 0.45% 1,000 ML IV SCH (07:53)
[2017-07-18] MEDS: Multivitamin Vitamin B Complex (Nephro-Vite) Tab PO SCH (08:00)
[2017-07-18] MEDS: (Novolog) Insulin Aspart, Recombinant 100 u/ml 10 ml vial SC SCH ×4 (08:00→22:00)
[2017-07-18 08:22] LABS: BANDS 3 % (0-2); EOSINOPHIL 1 % (0-4); LYMPHOCYTE 9 % (20-40); MONOCYTE 7 % (0-10); NEUTROPHIL 80 % (50-75); TOTAL CELLS COUNTED 100
[2017-07-18 08:23] LABS: ANISOCYTOSIS SLIGHT; PLATELET ESTIMATE DECREASED (NORMAL)
[2017-07-18 08:24] LABS: LARGE PLATELETS PRESENT; MICROCYTOSIS SLIGHT; OVALOCYTES SLIGHT; POLYCHROMIC SLIGHT
--- NOTE | 2017-07-18 09:12 | RAD ---
HISTORY: pneumonia COMPARISON: Portable chest 07/17/2017. FINDINGS: LUNGS: Dense infiltrate persists in the right upper lobe with limited patchy airspace disease question in the left base. Overall inspiratory volume appears diminished. PLEURA: No significant pleural effusion identified, no pneumothorax apparent. CARDIOVASCULAR: Cardiac silhouette remains prominent with mild pulmonary vascular congestion may be developing. OSSEOUS STRUCTURES: No significant abnormalities. VISUALIZED UPPER ABDOMEN: Normal. OTHER FINDINGS: None. IMPRESSION: Dense infiltrate persists at the right upper lobe without change with developing airspace disease question at the left base. Mild pulmonary vascular congestion may be developing.
[2017-07-18] MEDS: Azithromycin 500 MG in Sodium Chloride 0.9% 250 ML IVPB SCH (09:29)
[2017-07-18] MEDS: guaiFENesin 600 mg ER Tab PO SCH ×2 (09:29→17:22)
--- NOTE | 2017-07-18 11:29 | CP.PCM.PN ---
Subjective - Date & Time of Evaluation Date of Evaluation: 07/18/17 Time of Evaluation: 08:00 - Subjective Subjective: PAtient notes he slept well overnight, still wheezing, SOB upon exerction, currently getting IVF (CKD) Objective - Vital Signs/Intake and Output Vital Signs (last 24 hours): Temp Pulse Resp BP Pulse Ox 99.1 F 77 26 H 185/71 H 98 07/18/17 04:00 07/18/17 06:00 07/18/17 06:00 07/18/17 05:54 07/18/17 06:00 Intake and Output: 07/18/17 07/18/17 06:59 18:59 Intake Total 892 Output Total 2500 Balance -1608 - Medications Medications: Current Medications Acetaminophen (Tylenol 325mg Tab) 650 mg PO Q6 PRN PRN Reason: Fever >100.4 F Last Admin: 07/15/17 23:39 Dose: 650 mg Albuterol/Ipratropium (Duoneb 3 Mg/0.5 Mg (3 Ml) Ud) 3 ml INH RQ4 [facility] Amlodipine Besylate (Norvasc) 5 mg PO DAILY [facility] Carvedilol (Coreg) 25 mg PO BID [facility] Last Admin: 07/17/17 17:33 Dose: 25 mg Clopidogrel Bisulfate (Plavix) 75 mg PO DAILY [facility] Last Admin: 07/18/17 09:29 Dose: 75 mg Ferrous Gluconate (Fergon) 324 mg PO TID [facility] Last Admin: 07/18/17 09:29 Dose: 324 mg Guaifenesin (Mucinex La) 600 mg PO BID [facility] Last Admin: 07/18/17 09:29 Dose: 600 mg Hydralazine HCl (Apresoline) 10 mg IVP Q6H PRN PRN Reason: Until an adequate response is Last Admin: 07/18/17 08:01 Dose: 10 mg Azithromycin 500 mg/ Sodium (Chloride) 250 mls @ 250 mls/hr IVPB DAILY [facility] PRN Reason: Protocol Last Admin: 07/18/17 09:29 Dose: 250 mls/hr Cefepime HCl 0.5 gm/ Sodium (Chloride) 50 mls @ 100 mls/hr IVPB Q12 [facility] PRN Reason: Protocol Last Admin: 07/18/17 09:29 Dose: 100 mls/hr Insulin Aspart (Novolog) 0 unit SC ACHS [facility] PRN Reason: Protocol Last Admin: 07/18/17 08:00 Dose: 2 unit Insulin Glargine (Lantus) 15 unit SC HS [facility] Last Admin: 07/17/17 21:29 Dose: 15 units Methylprednisolone (Solu-Medrol) 40 mg IVP Q8H [facility] Rosuvastatin Calcium (Crestor) 5 mg PO HS [facility] Last Admin: 07/17/17 21:30 Dose: 5 mg Fluticasone/Salmeterol (Advair Diskus 100/50) 1 puff INH RQ12 [facility] Vitamin B Complex/Vit C/Folic Acid (Nephro-Keith) 1 tab PO 0800 [facility] Last Admin: 07/18/17 08:00 Dose: 1 tab - Labs Labs: 07/18/17 06:34 07/18/17 06:37 APTT 40 SECONDS (21-34) H 07/15/17 07:14 - Constitutional Appears: Well, Non-toxic - Head Exam Head Exam: ATRAUMATIC, NORMAL INSPECTION - Eye Exam Pupil Exam: PERRL - ENT Exam ENT Exam: Mucous Membranes Moist - Neck Exam Neck Exam: Full ROM - Respiratory Exam Respiratory Exam: Rales, Wheezes, NORMAL BREATHING PATTERN. absent: Stridor - Cardiovascular Exam Cardiovascular Exam: REGULAR RHYTHM, +S1, +S2, Murmur - GI/Abdominal Exam GI & Abdominal Exam: Normal Bowel Sounds - Extremities Exam Extremities Exam: Normal Capillary Refill - Neurological Exam Neurological Exam: Alert, Awake, CN II-XII Intact, Oriented x3 - Skin Skin Exam: Normal Color Assessment and Plan - Assessment and Plan (Free Text) Plan: 76 y/o M hx of CAD s/p CABG, DM, HTN since 2006, MPO ANCA vasculitis s/p kidney biopsy [facility] [place] 08/31/2016. 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 vasculitis) -RUL lobar PNA: currently on ABX, wbc decreasing, check LDH (PJP s/p rituximab) -Anemia: check FOB, iron profile, no active bleeding, likely anemia of chronic disease -CAD: continue plavix, statin, coreg no chest pain today -Thrombocytopenia: monitor, check HIT -DVT ppx scds (no heparin in light of low platelets) -PUD ppx Patient encouraged to be OOB to chair
--- NOTE | 2017-07-18 12:50 | CARD ---
APPROVED REPORT EXAM: Two-dimensional and M-mode echocardiogram with Doppler and color Doppler. Other Information Quality : TDSRhythm : INDICATION Congestive Heart Failure Pneumonia 2D DIMENSIONS IVSd1.1 (0.7-1.1cm)LVDd5.4 (3.9-5.9cm) PWd1.2 (0.7-1.1cm)LVDs3.0 (2.5-4.0cm) FS (%) 44.1 %LVEF (%)70.0 (>50%) M-Mode DIMENSIONS Left Atrium (MM)4.43 (2.5-4.0cm)Aortic Root3.74 (2.2-3.7cm) Aortic Cusp Exc.2.33 (1.5-2.0cm) Mitral Valve MV E Qqonzjxf77.2cm/sMV A Bbzzifdf145.0cm/sE/A ratio0.8 TDI E/Lateral E'0.0E/Medial E'0.0 Tricuspid Valve TR Peak [id number]/sTR Peak Gr.[id number] LEFT VENTRICLE The left ventricle is normal size. There is mild concentric left ventricular hypertrophy. The left ventricular function is normal. The left ventricular ejection fraction is within the normal range. No regional wall motion abnormalities noted. Transmitral Doppler flow pattern is Grade I-abnormal relaxation pattern. Left ventricular filling pressures are normal No left ventricle thrombus noted on this study. There is no ventricular septal defect visualized. There is no left ventricular aneurysm. There is no mass noted in the left ventricle. RIGHT VENTRICLE The right ventricle is normal size. There is normal right ventricular wall thickness. The right ventricular systolic function is normal. ATRIA The left atrium size is normal. The right atrium size is normal. The interatrial septum is intact with no evidence for an atrial septal defect. AORTIC VALVE The aortic valve is normal in structure and function. No aortic regurgitation is present. There is no aortic valvular stenosis. There is no aortic valvular vegetation. MITRAL VALVE The mitral valve is normal in structure and function. There is no evidence of mitral valve prolapse. There is no mitral valve stenosis. Mitral regurgitation is mild. TRICUSPID VALVE The tricuspid valve is normal in structure and function. There is mild tricuspid regurgitation. Right ventricular systolic pressure is estimated at 30-40 mmHg. There is no tricuspid valve prolapse or vegetation. There is no tricuspid valve stenosis. PULMONIC VALVE The pulmonary valve is normal in structure and function. There is no pulmonic valvular regurgitation. There is no pulmonic valvular stenosis. GREAT VESSELS The aortic root is normal in size. The ascending aorta is normal in size. The pulmonary artery is normal. The IVC is normal in size and collapses >50% with inspiration. PERICARDIAL EFFUSION The pericardium appears normal. There is no pleural effusion. <Conclusion> The left ventricular function is normal. The left ventricular ejection fraction is within the normal range. No regional wall motion abnormalities noted. Mitral regurgitation is mild. There is mild tricuspid regurgitation. Right ventricular systolic pressure is estimated at 30-40 mmHg.
[2017-07-18] MEDS: Fluticasone-Salmeterol 100-50mcg Diskus INH SCH (13:14)
[2017-07-18] MEDS: MethylPREDNISolone 40 mg Vial IVP SCH ×2 (14:00→21:31)
--- NOTE | 2017-07-18 14:53 | CP.PCM.PN ---
Subjective - Date & Time of Evaluation Date of Evaluation: 07/18/17 Time of Evaluation: 14:51 - Subjective Subjective: Nephrology Consultation Note Assesemnt: Stable RUL pneumonia with septic shock HAGMA with hyperkalemia, hyperphosphatemia CHARLEE on CKD stage 4 likely hemodynamic ? ATN: improving ? 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 hold ACEI/ARB due to hyperkalemia. resume norvasc no acute need for renal replacement therapy at this time Monitor Input/Output, daily weights and renal function with basic metabolic panel held neurontin to avoid neurotoxicity in severe CHARLEE, can resume renal adjusted dose resume supplement Vit D 1000/day and continue iron tab 325 mg TID with meals consider lasix Dose meds/antibiotics for reduced GFR. Avoid fleets enema/magnesium based laxatives. Avoid nephrotoxins/NSAIDs/ iodinated contrast (unless needed emergently) Glycemic control Further work up/management as per primary team Thanks for allowing me to participate in care of your patient. Will follow patient with you. Please call if any Qs. had d/w team and Dr CorderoRonentushar Everett Office: [phone] CC: shortness of breath and Pneumonia reason for consult: CHARLEE HPI: He is a 76 y/o M hx of CAD s/p CABG, DM, HTN since 2006, MPO ANCA vasculitis s/p kidney biopsy [facility] [place] 08/31/2016. He had completed 4 doses of rituxan on oct 08 2016 with remission of renal vasculitis but has CKD stage 3/ 4 (baseline cr 2.3-2.4) recent removal of lump from Rt upper arm at [facility] came with SOB x 1 day and found to have RUL pneumonia with septic shock , renal consult for CHARLEE he feels bit better. still has SOB and cough. has monahan catheter ROS: Cardiovascular: No chest pain. Pulmonary: c/o shortness of breath and wheezing Gastrointestinal: denies abdominal pain No nausea. No vomiting. Genitourinary: No pain while urinating. Denies blood in urine. Rest all other negative except as mentioned in HPI exam: General Appearance: Comfortable, in no acute respiratory distress, co- operative . better appearing, obese Vitals reviewed and noted Head; Atraumatic, normocephalic ENT: no ulcers no thrush. Tongue is midline. Oropharynx: no rash or ulcers. EYES: Pupils are equal, round and reactive to light accommodation. Eye muscles and extraocular movement intact. Sclera is anicteric. Neck; supple no lymphadenopathy, no thyromegaly or bruit Lungs: improved respiratory rate/effort. Breath sounds bilateral + improved but has wheezing now Heart: Normal rate. s1s2 normal. No rub or gallop. Extremities: no edema. No varicose veins Neurological: Patient is alert, awake and oriented to person, place and time. No focal deficit. Strength bilateral appropriate and equal Skin: Warm and dry. Normal turgor. has vitiligo. Palpitation: Normal elasticity for age Abdomen: Abdomen is soft. Bowel sounds +. There is no abdominal tenderness, no guarding/rigidity or organomegaly Psych: normal insight and normal affect/mood MSK: no joint tenderness or swelling. Digits and nails normal, no deformity. has firm swelling over Rt humerus, mobile ? lipoma : kidney or bladder not palpable. Labs/imaging reviewed. Past medical history, past surgical history, family history, social history, allergy reviewed and noted as below Family hx: no hx of CKD. 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 Interstitial hemorrhage, RBC with casts in tubules, thyroidization of tubules, arterial intimal thickening and mild interstitial fibrosis. No glomerulus for IF or EM. 03/12/17: UA 30 protein no blood. pr/cr 245 mg/gr Ferritin 51 TSAT 30% PTH 178 Vit D 31 NA 145 K 4.4 Bicarb 23 BUN/Cr 39/3.1 Ca 9.2 GLucose 94 04/12/17: MPO titer >1:640, Sodium 146 potassium 4.4 bicarbonate 27 BU and 36 creatinine 2.3 MDRD GFR 30 Hemoglobin 12 UA no blood had 30 protein ratio of pr/ cr 245 mg/g of creatinine 06/09/17: UA 30 protein no blood but pr/cr ratio of 1031 mg/gr microalbumin >300 NA 144 K 5.1 BUN 39 cr 2.4 bicarb 22 (GFR 28) K 5.1 Hb 11.6 Objective - Vital Signs/Intake and Output Vital Signs (last 24 hours): Temp Pulse Resp BP Pulse Ox 99.1 F 77 26 H 127/72 98 07/18/17 04:00 07/18/17 06:00 07/18/17 06:00 07/18/17 11:00 07/18/17 06:00 Intake and Output: 07/18/17 07/18/17 06:59 18:59 Intake Total 892 Output Total 2500 Balance -1608 - Medications Medications: Current Medications Acetaminophen (Tylenol 325mg Tab) 650 mg PO Q6 PRN PRN Reason: Fever >100.4 F Last Admin: 07/15/17 23:39 Dose: 650 mg Albuterol/Ipratropium (Duoneb 3 Mg/0.5 Mg (3 Ml) Ud) 3 ml INH RQ4 [facility] Last Admin: 07/18/17 13:14 Dose: Not Given Amlodipine Besylate (Norvasc) 5 mg PO DAILY [facility] Last Admin: 07/18/17 11:23 Dose: 5 mg Carvedilol (Coreg) 25 mg PO BID [facility] Last Admin: 07/18/17 11:00 Dose: 25 mg Clopidogrel Bisulfate (Plavix) 75 mg PO DAILY [facility] Last Admin: 07/18/17 09:29 Dose: 75 mg Ferrous Gluconate (Fergon) 324 mg PO TID [facility] Last Admin: 07/18/17 09:29 Dose: 324 mg Guaifenesin (Mucinex La) 600 mg PO BID [facility] Last Admin: 07/18/17 09:29 Dose: 600 mg Hydralazine HCl (Apresoline) 10 mg IVP Q6H PRN PRN Reason: Until an adequate response is Last Admin: 07/18/17 08:01 Dose: 10 mg Azithromycin 500 mg/ Sodium (Chloride) 250 mls @ 250 mls/hr IVPB DAILY [facility] PRN Reason: Protocol Last Admin: 07/18/17 09:29 Dose: 250 mls/hr Cefepime HCl 0.5 gm/ Sodium (Chloride) 50 mls @ 100 mls/hr IVPB Q12 [facility] PRN Reason: Protocol Last Admin: 07/18/17 09:29 Dose: 100 mls/hr Insulin Aspart (Novolog) 0 unit SC ACHS [facility] PRN Reason: Protocol Last Admin: 07/18/17 08:00 Dose: 2 unit Insulin Glargine (Lantus) 15 unit SC HS [facility] Last Admin: 07/17/17 21:29 Dose: 15 units Methylprednisolone (Solu-Medrol) 40 mg IVP Q8 [facility] Montelukast Sodium (Singulair) 10 mg PO HS [facility] Rosuvastatin Calcium (Crestor) 5 mg PO HS [facility] Last Admin: 07/17/17 21:30 Dose: 5 mg Fluticasone/Salmeterol (Advair Diskus 100/50) 1 puff INH RQ12 [facility] Last Admin: 07/18/17 13:14 Dose: Not Given Vitamin B Complex/Vit C/Folic Acid (Nephro-Keith) 1 tab PO 0800 [facility] Last Admin: 07/18/17 08:00 Dose: 1 tab - Labs Labs: 07/18/17 06:34 07/18/17 06:37 APTT 40 SECONDS (21-34) H 07/15/17 07:14
[2017-07-18] MEDS: (Lantus) Insulin Glargine, Recombinant SC SCH (21:32)
[2017-07-19] MEDS: Albuterol-Ipratrop 3 mg / 0.5 (3 ml) UD INH SCH ×5 (01:11→20:51)
[2017-07-19] MEDS: MethylPREDNISolone 40 mg Vial IVP SCH ×3 (05:58→22:00)
[2017-07-19 06:46] LABS: BASO % 0.1 % (0.0-2.0); HEMOGLOBIN 10.7 g/dL (12.0-18.0); LYMPH # 0.5 K/uL (1.0-4.3); LYMPH % 5.7 % (20.0-40.0); MEAN CELL VOLUME 90.6 fL (80.0-94.0); MEAN CORPUSCULAR HGB CONC 34.2 g/dL (33.0-37.0); MEAN PLATELET VOLUME 10.8 fL (7.2-11.7); MONO # 0.1 K/uL (0.0-0.8); MONO % 1.1 % (0.0-10.0); NEUT # 7.9 K/uL (1.8-7.0); NEUT % 93.1 % (50.0-75.0); PLATELET COUNT 94 K/uL (130-400); RBC 3.45 Mil/uL (4.40-5.90); RED CELL DISTRIBUTION WIDTH 14.8 % (11.5-14.5); WHITE BLOOD COUNT 8.5 K/uL (4.8-10.8)
[2017-07-19 06:51] LABS: IRON 34 ug/dL (49-181)
[2017-07-19 07:01] LABS: % IRON SATURATION 12 (20-55); TOTAL IRON BINDING CAPACITY 274 ug/dL (250-450)
[2017-07-19 07:02] LABS: ALB/GLOB RATIO 0.9 (1.0-2.1); ALBUMIN 3.1 g/dL (3.5-5.0); CALCIUM 9.4 mg/dl (8.6-10.4)
[2017-07-19] MEDS: (Novolog) Insulin Aspart, Recombinant 100 u/ml 10 ml vial SC SCH ×4 (07:35→22:02)
[2017-07-19 08:11] LABS: BANDS 3 % (0-2); LYMPHOCYTE 7 % (20-40); NEUTROPHIL 90 % (50-75); TOTAL CELLS COUNTED 100
[2017-07-19 08:12] LABS: PLATELET ESTIMATE DECREASED (NORMAL)
[2017-07-19] MEDS: Fluticasone-Salmeterol 100-50mcg Diskus INH SCH ×2 (08:13→20:54)
[2017-07-19] MEDS: Azithromycin 500 MG in Sodium Chloride 0.9% 250 ML IVPB SCH (11:00)
[2017-07-19] MEDS: Multivitamin Vitamin B Complex (Nephro-Vite) Tab PO SCH (11:49)
[2017-07-19] MEDS: guaiFENesin 600 mg ER Tab PO SCH ×2 (11:49→17:21)
--- NOTE | 2017-07-19 12:00 | CP.CCUPN ---
CCU Subjective - Physician Review Events Since Last Encounter (Free Text): 07/19/17 11:58 Patient is a 76-year-old male with a history of CAD, CABG, diabetes and hypertension history of vasculitis. Patient admitted with acute pneumonia involving the right upper lung. Sputum culture and blood culture negative Patient was initially hospitalized to medical floor, and again was transferred to intensive care unit because of the worsening shortness of breath. Patient slowly improving in his overall condition In nasal cannula oxygen saturation is 100%. patient has minimal wheezing, improving CCU Objective - Vital Signs / Intake & Output Intake and Output (Last 8hrs): Intake & Output 07/18/17 07/19/17 07/19/17 22:59 06:59 14:59 Intake Total 1750 0 0 Output Total 2400 550 Balance -650 -550 0 Weight 221 lb 5.506 oz Intake: Intake, IV Amount 230 Left hand 230 Oral 1520 0 0 Output: Urine 2400 550 Urethral (Mo) 1800 Urine, Voided 600 550 Other: # Bowel Movements 2 - Physical Exam Narrative Physical Exam (Free Text): 07/19/17 11:59 Patient is not a distress. Sitting up comfortably Chest good air entry bilaterally Detail of heart sounds Nontender abdomen. No pedal edema Head: Positive for: Atraumatic, Normocephalic Extroacular Muscles: Positive for: EOMI Conjunctiva: Positive for: Normal Respiratory/Chest: Positive for: Clear to Auscultation, Decreased Breath Sounds Cardiovascular: Positive for: Regular Rate and Rhythm, Normal S1, S2 Abdomen: Positive for: Normal Bowel Sounds. Negative for: Tenderness Neurological: Positive for: GCS=15, Speech Normal - Medications Active Medications: Active Medications Generic Name Dose Route Start Last Admin Trade Name Freq PRN Reason Stop Dose Admin Acetaminophen 650 mg 07/14/17 20:00 07/15/17 23:39 Tylenol 325mg Tab PO 650 mg Q6 PRN Administration Fever >100.4 F Albuterol/Ipratropium 3 ml 07/18/17 08:00 07/19/17 11:32 Duoneb 3 Mg/0.5 Mg (3 Ml) Ud INH 3 ml RQ4 [facility]N Administration Amlodipine Besylate 5 mg 07/18/17 10:00 07/19/17 11:49 Norvasc PO 5 mg DAILY [facility] Administration Carvedilol 25 mg 07/14/17 18:00 07/18/17 17:24 Coreg PO 25 mg BID [facility] Administration Clopidogrel Bisulfate 75 mg 07/15/17 10:00 07/19/17 11:49 Plavix PO 75 mg DAILY [facility] Administration Ferrous Gluconate 324 mg 07/17/17 18:00 07/18/17 17:18 Fergon PO 324 mg TID [facility] Administration Gabapentin 300 mg 07/18/17 22:00 07/18/17 21:32 Neurontin PO 300 mg HS [facility] Administration Guaifenesin 600 mg 07/14/17 18:00 07/19/17 11:49 Mucinex La PO 600 mg BID [facility] Administration Azithromycin 500 mg/ Sodium 250 mls @ 250 mls/hr 07/15/17 10:00 07/18/17 09: 29 Chloride IVPB 250 mls/hr DAILY [facility] Administration Protocol Cefepime HCl 0.5 gm/ Sodium 50 mls @ 100 mls/hr 07/15/17 10:00 07/18/17 21:30 Chloride IVPB 100 mls/hr Q12 [facility] Administration Protocol Insulin Aspart 0 unit 07/14/17 22:00 07/18/17 22:00 Novolog SC Not Given ACHS [facility] Protocol Insulin Glargine 15 unit 07/14/17 22:00 07/18/17 21:32 Lantus SC 15 units HS [facility] Administration Methylprednisolone 20 mg 07/19/17 09:00 07/19/17 11:50 Solu-Medrol IVP 07/22/17 09:01 20 mg Q12H [facility] Administration Montelukast Sodium 10 mg 07/18/17 22:00 07/18/17 21:32 Singulair PO 10 mg HS [facility] Administration Rosuvastatin Calcium 5 mg 07/14/17 22:00 07/18/17 21:32 Crestor PO 5 mg HS [facility] Administration Fluticasone/Salmeterol 1 puff 07/18/17 08:00 07/19/17 08:13 Advair Diskus 100/50 INH 1 puff RQ12 [facility] Administration Vitamin B Complex/Vit C/Folic Acid 1 tab 07/18/17 08:00 07/19/17 11:49 Nephro-Keith PO 1 tab 0800 [facility] Administration - Patient Studies Lab Studies: Microbiology Studies 07/14/17 14:15 Blood Culture - Preliminary Blood NO GROWTH AFTER 4 DAYS 07/14/17 14:45 Blood Culture - Preliminary Blood NO GROWTH AFTER 4 DAYS Lab Studies 07/19/17 07/19/17 07/19/17 Range/Units 11:30 11:27 07:14 WBC (4.8-10.8) K/uL RBC (4.40-5.90) Mil/uL Hgb (12.0-18.0) g/dL Hct (35.0-51.0) % MCV (80.0-94.0) fL MCH (27.0-31.0) pg MCHC (33.0-37.0) g/dL RDW (11.5-14.5) % Plt Count (130-400) K/uL MPV (7.2-11.7) fL Neut % (Auto) (50.0-75.0) % Lymph % (Auto) (20.0-40.0) % [place] % (Auto) (0.0-10.0) % Eos % (Auto) (0.0-4.0) % Baso % (Auto) (0.0-2.0) % Neut # (Auto) (1.8-7.0) K/uL Lymph # (Auto) (1.0-4.3) K/uL [place] # (Auto) (0.0-0.8) K/uL Eos # (Auto) (0.0-0.7) K/uL Baso # (Auto) (0.0-0.2) K/uL Neutrophils % (Manual) (50-75) % Band Neutrophils % (0-2) % Lymphocytes % (Manual) (20-40) % Monocytes % (Manual) Platelet Estimate (NORMAL) Basophilic Stippling Sodium (132-148) mmol/L Potassium (3.6-5.2) mmol/L Chloride (98-107) mmol/L Carbon Dioxide (22-30) mmol/L Anion Gap (10-20) BUN (9-20) mg/dL Creatinine (0.8-1.5) mg/dL Est GFR ( Amer) Est GFR (Non-Af Amer) POC Glucose (mg/dL) > 500 H* > 500 H* 351 H (65-110) mg/dL Random Glucose (75-110) mg/dL Calcium (8.6-10.4) mg/dl Phosphorus (2.5-4.5) mg/dL Magnesium (1.6-2.3) mg/dL Iron (49-181) ug/dL TIBC (250-450) ug/dL % Saturation (20-55) Ferritin ng/mL Total Bilirubin (0.2-1.3) mg/dL AST (17-59) U/L ALT (21-72) U/L Alkaline Phosphatase (38-126) U/L Lactate Dehydrogenase (313-618) U/L Total Protein (6.3-8.3) g/dL Albumin (3.5-5.0) g/dL Globulin (2.2-3.9) gm/dL Albumin/Globulin Ratio (1.0-2.1) 07/19/17 07/19/17 07/19/17 Range/Units 06:33 06:33 06:33 WBC (4.8-10.8) K/uL RBC (4.40-5.90) Mil/uL Hgb (12.0-18.0) g/dL Hct (35.0-51.0) % MCV (80.0-94.0) fL MCH (27.0-31.0) pg MCHC (33.0-37.0) g/dL RDW (11.5-14.5) % Plt Count (130-400) K/uL MPV (7.2-11.7) fL Neut % (Auto) (50.0-75.0) % Lymph % (Auto) (20.0-40.0) % [place] % (Auto) (0.0-10.0) % Eos % (Auto) (0.0-4.0) % Baso % (Auto) (0.0-2.0) % Neut # (Auto) (1.8-7.0) K/uL Lymph # (Auto) (1.0-4.3) K/uL [place] # (Auto) (0.0-0.8) K/uL Eos # (Auto) (0.0-0.7) K/uL Baso # (Auto) (0.0-0.2) K/uL Neutrophils % (Manual) (50-75) % Band Neutrophils % (0-2) % Lymphocytes % (Manual) (20-40) % Monocytes % (Manual) Platelet Estimate (NORMAL) Basophilic Stippling Sodium 141 (132-148) mmol/L Potassium 4.9 (3.6-5.2) mmol/L Chloride 105 (98-107) mmol/L Carbon Dioxide 25 (22-30) mmol/L Anion Gap 16 (10-20) BUN 36 H (9-20) mg/dL Creatinine 1.9 H (0.8-1.5) mg/dL Est GFR ( Amer) 42 Est GFR (Non-Af Amer) 35 POC Glucose (mg/dL) (65-110) mg/dL Random Glucose 275 H (75-110) mg/dL Calcium 9.4 (8.6-10.4) mg/dl Phosphorus 4.1 (2.5-4.5) mg/dL Magnesium 1.9 (1.6-2.3) mg/dL Iron 34 L (49-181) ug/dL TIBC 274 (250-450) ug/dL % Saturation 12 L (20-55) Ferritin 172.0 ng/mL Total Bilirubin 0.9 (0.2-1.3) mg/dL AST 33 (17-59) U/L ALT 33 (21-72) U/L Alkaline Phosphatase 118 (38-126) U/L Lactate Dehydrogenase 484 (313-618) U/L Total Protein 6.3 (6.3-8.3) g/dL Albumin 3.1 L (3.5-5.0) g/dL Globulin 3.2 (2.2-3.9) gm/dL Albumin/Globulin Ratio 0.9 L (1.0-2.1) 07/19/17 07/18/17 07/18/17 Range/Units 06:33 21:13 15:58 WBC 8.5 (4.8-10.8) K/uL RBC 3.45 L (4.40-5.90) Mil/uL Hgb 10.7 L (12.0-18.0) g/dL Hct 31.2 L (35.0-51.0) % MCV 90.6 (80.0-94.0) fL MCH 31.0 (27.0-31.0) pg MCHC 34.2 (33.0-37.0) g/dL RDW 14.8 H (11.5-14.5) % Plt Count 94 L (130-400) K/uL MPV 10.8 (7.2-11.7) fL Neut % (Auto) 93.1 H (50.0-75.0) % Lymph % (Auto) 5.7 L (20.0-40.0) % [place] % (Auto) 1.1 (0.0-10.0) % Eos % (Auto) 0.0 (0.0-4.0) % Baso % (Auto) 0.1 (0.0-2.0) % Neut # (Auto) 7.9 H (1.8-7.0) K/uL Lymph # (Auto) 0.5 L (1.0-4.3) K/uL [place] # (Auto) 0.1 (0.0-0.8) K/uL Eos # (Auto) 0.0 (0.0-0.7) K/uL Baso # (Auto) 0.0 (0.0-0.2) K/uL Neutrophils % (Manual) 90 H (50-75) % Band Neutrophils % 3 H (0-2) % Lymphocytes % (Manual) 7 L (20-40) % Monocytes % (Manual) TEST NOT PERFORMED Platelet Estimate Decreased L (NORMAL) Basophilic Stippling Slight Sodium (132-148) mmol/L Potassium (3.6-5.2) mmol/L Chloride (98-107) mmol/L Carbon Dioxide (22-30) mmol/L Anion Gap (10-20) BUN (9-20) mg/dL Creatinine (0.8-1.5) mg/dL Est GFR ( Amer) Est GFR (Non-Af Amer) POC Glucose (mg/dL) 155 H 238 H (65-110) mg/dL Random Glucose (75-110) mg/dL Calcium (8.6-10.4) mg/dl Phosphorus (2.5-4.5) mg/dL Magnesium (1.6-2.3) mg/dL Iron (49-181) ug/dL TIBC (250-450) ug/dL % Saturation (20-55) Ferritin ng/mL Total Bilirubin (0.2-1.3) mg/dL AST (17-59) U/L ALT (21-72) U/L Alkaline Phosphatase (38-126) U/L Lactate Dehydrogenase (313-618) U/L Total Protein (6.3-8.3) g/dL Albumin (3.5-5.0) g/dL Globulin (2.2-3.9) gm/dL Albumin/Globulin Ratio (1.0-2.1) Laboratory Results - last 24 hr 07/18/17 07/18/17 07/19/17 15:58 21:13 06:33 WBC 8.5 RBC 3.45 L Hgb 10.7 L Hct 31.2 L MCV 90.6 MCH 31.0 MCHC 34.2 RDW 14.8 H Plt Count 94 L MPV 10.8 Neut % (Auto) 93.1 H Lymph % (Auto) 5.7 L [place] % (Auto) 1.1 Eos % (Auto) 0.0 Baso % (Auto) 0.1 Neut # (Auto) 7.9 H Lymph # (Auto) 0.5 L [place] # (Auto) 0.1 Eos # (Auto) 0.0 Baso # (Auto) 0.0 Neutrophils % (Manual) 90 H Band Neutrophils % 3 H Lymphocytes % (Manual) 7 L Monocytes % (Manual) TEST NOT PERFORMED Platelet Estimate Decreased L Basophilic Stippling Slight Sodium Potassium Chloride Carbon Dioxide Anion Gap BUN Creatinine Est GFR ( Amer) Est GFR (Non-Af Amer) POC Glucose (mg/dL) 238 H 155 H Random Glucose Calcium Phosphorus Magnesium Iron TIBC % Saturation Ferritin Total Bilirubin AST ALT Alkaline Phosphatase Lactate Dehydrogenase Total Protein Albumin Globulin Albumin/Globulin Ratio 07/19/17 07/19/17 07/19/17 06:33 06:33 06:33 WBC RBC Hgb Hct MCV MCH MCHC RDW Plt Count MPV Neut % (Auto) Lymph % (Auto) [place] % (Auto) Eos % (Auto) Baso % (Auto) Neut # (Auto) Lymph # (Auto) [place] # (Auto) Eos # (Auto) Baso # (Auto) Neutrophils % (Manual) Band Neutrophils % Lymphocytes % (Manual) Monocytes % (Manual) Platelet Estimate Basophilic Stippling Sodium 141 Potassium 4.9 Chloride 105 Carbon Dioxide 25 Anion Gap 16 BUN 36 H Creatinine 1.9 H Est GFR ( Amer) 42 Est GFR (Non-Af Amer) 35 POC Glucose (mg/dL) Random Glucose 275 H Calcium 9.4 Phosphorus 4.1 Magnesium 1.9 Iron 34 L TIBC 274 % Saturation 12 L Ferritin 172.0 Total Bilirubin 0.9 AST 33 ALT 33 Alkaline Phosphatase 118 Lactate Dehydrogenase 484 Total Protein 6.3 Albumin 3.1 L Globulin 3.2 Albumin/Globulin Ratio 0.9 L 07/19/17 07/19/17 07/19/17 07:14 11:27 11:30 WBC RBC Hgb Hct MCV MCH MCHC RDW Plt Count MPV Neut % (Auto) Lymph % (Auto) [place] % (Auto) Eos % (Auto) Baso % (Auto) Neut # (Auto) Lymph # (Auto) [place] # (Auto) Eos # (Auto) Baso # (Auto) Neutrophils % (Manual) Band Neutrophils % Lymphocytes % (Manual) Monocytes % (Manual) Platelet Estimate Basophilic Stippling Sodium Potassium Chloride Carbon Dioxide Anion Gap BUN Creatinine Est GFR ( Amer) Est GFR (Non-Af Amer) POC Glucose (mg/dL) 351 H > 500 H* > 500 H* Random Glucose Calcium Phosphorus Magnesium Iron TIBC % Saturation Ferritin Total Bilirubin AST ALT Alkaline Phosphatase Lactate Dehydrogenase Total Protein Albumin Globulin Albumin/Globulin Ratio Fingerstick Blood Sugar Results: 155 Critical Care Progress Note - Nutrition Nutrition: Nutrition Category Date Time Status Heart Healthy Diet [DIET] Diets 07/14/17 Dinner Active Assessment/Plan (1) Pneumonia Assessment and plan: Patient admitted to the intensive care unit with acute upper lobe pneumonia Patient had a fever, but febrile illness. Personal for the culture is negative Currently on antibiotic appropriate for community-acquired pneumonia, he is also responding clinically. Patient is a 76-year-old male with a history of CAD, CABG, diabetes and hypertension history of vasculitis. Patient admitted with acute pneumonia involving the right upper lung. Sputum culture and blood culture negative patient is clinically stable, transferred to medical floor. Current Visit: Yes Status: Acute
--- NOTE | 2017-07-19 12:30 | CP.PCM.PN ---
Subjective - Date & Time of Evaluation Date of Evaluation: 07/19/17 Time of Evaluation: 12:29 - Subjective Subjective: Nephrology Consultation Note Assesemnt: Stable RUL pneumonia with septic shock HAGMA with hyperkalemia, hyperphosphatemia CHARLEE on CKD stage 4 likely hemodynamic ? ATN: improving ? 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 hold ACEI/ARB due to hyperkalemia/CHARLEE. resume norvasc. also on coreg no acute need for renal replacement therapy at this time Monitor Input/Output, daily weights and renal function with basic metabolic panel held neurontin to avoid neurotoxicity in severe CHARLEE, can resume renal adjusted dose resume supplement Vit D 1000/day and continue iron tab 325 mg TID with meals will add lasix 40 mg/day Dose meds/antibiotics for reduced GFR. Avoid fleets enema/magnesium based laxatives. Avoid nephrotoxins/NSAIDs/ iodinated contrast (unless needed emergently) Glycemic control Further work up/management as per primary team Thanks for allowing me to participate in care of your patient. Will follow patient with you. Please call if any Qs. had d/w team and Ronen Everett Office: [phone] CC: shortness of breath and Pneumonia reason for consult: CHARLEE HPI: He is a 76 y/o M hx of CAD s/p CABG, DM, HTN since 2006, MPO ANCA vasculitis s/p kidney biopsy [facility] [place]. He had completed 4 doses of rituxan on oct 08 2016 with remission of renal vasculitis but has CKD stage 3/ 4 (baseline cr 2.3-2.4) recent removal of lump from Rt upper arm at [facility] came with SOB x 1 day and found to have RUL pneumonia with septic shock , renal consult for CHARLEE he feels bit better. still has SOB and cough. has monahan catheter ROS: Cardiovascular: No chest pain. Pulmonary: c/o shortness of breath and wheezing Gastrointestinal: denies abdominal pain No nausea. No vomiting. Genitourinary: No pain while urinating. Denies blood in urine. Rest all other negative except as mentioned in HPI exam: General Appearance: Comfortable, in no acute respiratory distress, co- operative . better appearing, obese Vitals reviewed and noted Head; Atraumatic, normocephalic ENT: no ulcers no thrush. Tongue is midline. Oropharynx: no rash or ulcers. EYES: Pupils are equal, round and reactive to light accommodation. Eye muscles and extraocular movement intact. Sclera is anicteric. Neck; supple no lymphadenopathy, no thyromegaly or bruit Lungs: improved respiratory rate/effort. Breath sounds bilateral + improved but has basal crackles Heart: Normal rate. s1s2 normal. No rub or gallop. Extremities: no edema. No varicose veins Neurological: Patient is alert, awake and oriented to person, place and time. No focal deficit. Strength bilateral appropriate and equal Skin: Warm and dry. Normal turgor. has vitiligo. Palpitation: Normal elasticity for age Abdomen: Abdomen is soft. Bowel sounds +. There is no abdominal tenderness, no guarding/rigidity or organomegaly Psych: normal insight and normal affect/mood MSK: no joint tenderness or swelling. Digits and nails normal, no deformity. has firm swelling over Rt humerus, mobile ? lipoma : kidney or bladder not palpable. Labs/imaging reviewed. Past medical history, past surgical history, family history, social history, allergy reviewed and noted as below Family hx: no hx of CKD. 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 Interstitial hemorrhage, RBC with casts in tubules, thyroidization of tubules, arterial intimal thickening and mild interstitial fibrosis. No glomerulus for IF or EM. 03/12/17: UA 30 protein no blood. pr/cr 245 mg/gr Ferritin 51 TSAT 30% PTH 178 Vit D 31 NA 145 K 4.4 Bicarb 23 BUN/Cr 39/3.1 Ca 9.2 GLucose 94 04/12/17: MPO titer >1:640, Sodium 146 potassium 4.4 bicarbonate 27 BU and 36 creatinine 2.3 MDRD GFR 30 Hemoglobin 12 UA no blood had 30 protein ratio of pr/ cr 245 mg/g of creatinine 06/09/17: UA 30 protein no blood but pr/cr ratio of 1031 mg/gr microalbumin >300 NA 144 K 5.1 BUN 39 cr 2.4 bicarb 22 (GFR 28) K 5.1 Hb 11.6 Objective - Vital Signs/Intake and Output Vital Signs (last 24 hours): Temp Pulse Resp BP Pulse Ox 98 F 44 L 15 140/55 L 96 07/19/17 08:00 07/19/17 11:50 07/19/17 12:01 07/19/17 12:08 07/19/17 07:00 Intake and Output: 07/19/17 07/19/17 06:59 18:59 Intake Total 835 960 Output Total 1800 380 Balance -965 580 - Medications Medications: Current Medications Acetaminophen (Tylenol 325mg Tab) 650 mg PO Q6 PRN PRN Reason: Fever >100.4 F Last Admin: 07/15/17 23:39 Dose: 650 mg Albuterol/Ipratropium (Duoneb 3 Mg/0.5 Mg (3 Ml) Ud) 3 ml INH RQ4 [facility] Last Admin: 07/19/17 11:32 Dose: 3 ml Amlodipine Besylate (Norvasc) 5 mg PO DAILY [facility] Last Admin: 07/19/17 11:49 Dose: 5 mg Carvedilol (Coreg) 25 mg PO BID [facility] Last Admin: 07/19/17 12:08 Dose: 25 mg Clopidogrel Bisulfate (Plavix) 75 mg PO DAILY [facility] Last Admin: 07/19/17 11:49 Dose: 75 mg Ferrous Gluconate (Fergon) 324 mg PO TID [facility] Last Admin: 07/19/17 10:00 Dose: 324 mg Furosemide (Lasix) 40 mg PO DAILY [facility] Stop: 07/24/17 12:31 Gabapentin (Neurontin) 300 mg PO HS [facility] Last Admin: 07/18/17 21:32 Dose: 300 mg Guaifenesin (Mucinex La) 600 mg PO BID [facility] Last Admin: 07/19/17 11:49 Dose: 600 mg Azithromycin 500 mg/ Sodium (Chloride) 250 mls @ 250 mls/hr IVPB DAILY [facility] PRN Reason: Protocol Last Admin: 07/19/17 11:00 Dose: 250 mls/hr Cefepime HCl 0.5 gm/ Sodium (Chloride) 50 mls @ 100 mls/hr IVPB Q12 [facility] PRN Reason: Protocol Last Admin: 07/19/17 10:00 Dose: 100 mls/hr Insulin Aspart (Novolog) 0 unit SC ACHS [facility] PRN Reason: Protocol Last Admin: 07/19/17 11:35 Dose: 12 unit Insulin Glargine (Lantus) 15 unit SC Q12 [facility] Methylprednisolone (Solu-Medrol) 20 mg IVP Q12H [facility] Stop: 07/22/17 09:01 Last Admin: 07/19/17 09:35 Dose: 20 mg Montelukast Sodium (Singulair) 10 mg PO HS [facility] Last Admin: 07/18/17 21:32 Dose: 10 mg Rosuvastatin Calcium (Crestor) 5 mg PO HS [facility] Last Admin: 07/18/17 21:32 Dose: 5 mg Fluticasone/Salmeterol (Advair Diskus 100/50) 1 puff INH RQ12 [facility] Last Admin: 07/19/17 08:13 Dose: 1 puff Vitamin B Complex/Vit C/Folic Acid (Nephro-Keith) 1 tab PO 0800 [facility] Last Admin: 07/19/17 11:49 Dose: 1 tab - Labs Labs: 07/19/17 06:33 07/19/17 06:33 APTT 40 SECONDS (21-34) H 07/15/17 07:14
[2017-07-19] MEDS ORDERED: (Novolog) Insulin Aspart, Recombinant 100 u/ml 10 ml vial SC ONE (13:21)
[2017-07-19 17:06] VITALS: RESP 20
--- NOTE | 2017-07-19 19:16 | CP.PCM.PN ---
Subjective - Date & Time of Evaluation Date of Evaluation: 07/19/17 Time of Evaluation: 18:00 - Subjective Subjective: Hospitalist covering for Dr. Candelario Peralta Patient was seen and examined at 6 PM 07/19/17 371 A 77 year old male who was admitted for treatment of R Pneumonia Upon FULL ROS SOB/Chest Tightness is still present but much improved NO dysphagia/odynopahgia NO soreness in throat NO cough NO sinus/nasal congestion NO fever/chills NO muscle aches/pains NO joint pain NO chest pain/palpations NO abdominal pain NO n/v/d/c NO burning pain with urination NO MURILLO NO lightheadedness/dizziness NO paresthesias Exam: General: AAOX3, NAD HEENT: NCA, EOMI, PERRLA, NO cervical/supraclavicular/submandibular lymphadenopathy, NO pharyngeal erythema/exudate, Nasal Turbinates are nonerythematous/nonedematous, Oral Mucosa is moist Cardio: NS1 and NS2, NO M/R/G Resp: Right Mid to Lower Lung Inspiratory Crackles GI: BSx4, Soft, NT, Liver and Spleen could not be adequately palpated secondary to Central Obesity, NO guarding/rebound tenderness Ext: Pulses are strong and equal, Capillary Refill is 2 seconds, NO edema Neuro: CN II through XII are grossly intact Assessments: 1). Right Lung Pneumonia Blood culture 07/14/17 is negative at 5 days Sputum culture 07/15/17 is negative Urine culture 07/14/17 shows NO growth Duoneb Q6H Azithromycin 500 mg IV 1x/day Cefepime 500 mg IV Q12H Guaifenesin 600 mg PO 2x/day Solumedrol 20 mg IV Q12H: this will have to be switched to Prednisone Taper by mouth 07/20/17 Singulair 10 mg PO HS Advair 100/50 1 puff PO Q12H 2). Hx CABG Coreg 25 mg PO 2x/day Plavix 75 mg PO 1x/day Crestor 5 mg PO HS Holding ASA secondary to low platelets 3). Hx DM 2 Blood glucose elevated secondary to the Solumedrol ICU team increased Lantus to 15 U SC AM and PM starting 07/19/17 evening: this will have to be lowered once Prednisone Taper is instituted 07/20/17 Aspart ISS Gabapentin 300 mg PO HS for Diabetic Neuropathy Bilateral LE 4). Thrombocytopenia Heparin was D/C'd F/U HIT Abs Holding ASA Could be secondary to infection R Pneumonia? 5). Hx HLD Crestor 5 mg PO HS 6). Hx HTN Coreg 25 mg PO 2x/day Norvasc 5 mg PO 1x/day was added due to B/P uncontrolled 7). Metabolic Acidosis Likely secondary to infection R Pneumonia 8). CKD Stage [address] Saroj Everett HOLD ACEI/ARB Lasix 40 mg PO 1x/day with stop date 07/24/17 9). Hx Vasculitis Monitor 10). Iron Deficiency Ferrous Sulfate 324 mg PO TID 11). Prophylaxis Tylenol 650 mg PO Q6H PRN Fever SCDs Heprin D/C'd secondary to the Thrombocytopenia Dr. Peralta to take over care 07/20/17. Kamlesh Willoughby D.O. Objective - Vital Signs/Intake and Output Vital Signs (last 24 hours): Temp Pulse Resp BP Pulse Ox 98.5 F 78 20 168/77 H 95 07/19/17 16:00 07/19/17 16:00 07/19/17 16:00 07/19/17 17:21 07/19/17 16:00 Intake and Output: 07/19/17 07/20/17 18:59 06:59 Intake Total 2130 Output Total 780 Balance 1350 - Medications Medications: Current Medications Acetaminophen (Tylenol 325mg Tab) 650 mg PO Q6 PRN PRN Reason: Fever >100.4 F Last Admin: 07/15/17 23:39 Dose: 650 mg Albuterol/Ipratropium (Duoneb 3 Mg/0.5 Mg (3 Ml) Ud) 3 ml INH RQ4 [facility] Last Admin: 07/19/17 11:32 Dose: 3 ml Amlodipine Besylate (Norvasc) 5 mg PO DAILY [facility] Last Admin: 07/19/17 11:49 Dose: 5 mg Carvedilol (Coreg) 25 mg PO BID [facility] Last Admin: 07/19/17 17:21 Dose: 25 mg Clopidogrel Bisulfate (Plavix) 75 mg PO DAILY [facility] Last Admin: 07/19/17 11:49 Dose: 75 mg Ferrous Gluconate (Fergon) 324 mg PO TID [facility] Last Admin: 07/19/17 17:21 Dose: 324 mg Furosemide (Lasix) 40 mg PO DAILY [facility] Stop: 07/24/17 12:31 Last Admin: 07/19/17 10:00 Dose: 40 mg Gabapentin (Neurontin) 300 mg PO HS [facility] Last Admin: 07/18/17 21:32 Dose: 300 mg Guaifenesin (Mucinex La) 600 mg PO BID [facility] Last Admin: 07/19/17 17:21 Dose: 600 mg Azithromycin 500 mg/ Sodium (Chloride) 250 mls @ 250 mls/hr IVPB DAILY [facility] PRN Reason: Protocol Last Admin: 07/19/17 11:00 Dose: 250 mls/hr Cefepime HCl 0.5 gm/ Sodium (Chloride) 50 mls @ 100 mls/hr IVPB Q12 [facility] PRN Reason: Protocol Last Admin: 07/19/17 10:00 Dose: 100 mls/hr Insulin Aspart (Novolog) 0 unit SC ACHS [facility] PRN Reason: Protocol Last Admin: 07/19/17 17:21 Dose: 12 unit Insulin Glargine (Lantus) 15 unit SC Q12 [facility] Methylprednisolone (Solu-Medrol) 20 mg IVP Q12H [facility] Stop: 07/22/17 09:01 Last Admin: 07/19/17 09:35 Dose: 20 mg Montelukast Sodium (Singulair) 10 mg PO HS [facility] Last Admin: 07/18/17 21:32 Dose: 10 mg Rosuvastatin Calcium (Crestor) 5 mg PO HS [facility] Last Admin: 07/18/17 21:32 Dose: 5 mg Fluticasone/Salmeterol (Advair Diskus 100/50) 1 puff INH RQ12 [facility] Last Admin: 07/19/17 08:13 Dose: 1 puff Vitamin B Complex/Vit C/Folic Acid (Nephro-Keith) 1 tab PO 0800 [facility] Last Admin: 07/19/17 11:49 Dose: 1 tab - Labs Labs: 07/19/17 06:33 07/19/17 06:33 APTT 40 SECONDS (21-34) H 07/15/17 07:14
[2017-07-19] MEDS: (Lantus) Insulin Glargine, Recombinant SC SCH (22:03)
[2017-07-20] MEDS: Albuterol-Ipratrop 3 mg / 0.5 (3 ml) UD INH SCH ×7 (00:18→23:43)
[2017-07-20 07:14] LABS: HEMOGLOBIN 10.2 g/dL (12.0-18.0); LYMPH # 0.5 K/uL (1.0-4.3); LYMPH % 4.3 % (20.0-40.0); MEAN CELL VOLUME 91.3 fL (80.0-94.0); MEAN CORPUSCULAR HGB CONC 32.9 g/dL (33.0-37.0); MEAN PLATELET VOLUME 11.3 fL (7.2-11.7); MONO # 0.5 K/uL (0.0-0.8); MONO % 4.6 % (0.0-10.0); NEUT # 10.3 K/uL (1.8-7.0); NEUT % 91.1 % (50.0-75.0); PLATELET COUNT 101 K/uL (130-400); WHITE BLOOD COUNT 11.4 K/uL (4.8-10.8)
[2017-07-20 08:11] LABS: CALCIUM 9.2 mg/dl (8.6-10.4)
--- NOTE | 2017-07-20 08:17 | CP.PCM.PN ---
Subjective - Date & Time of Evaluation Date of Evaluation: 07/20/17 Time of Evaluation: 07:45 - Subjective Subjective: PGY2 Resident - Medicine Progress Note Patient seen and examined at bedside. No acute distress. No overnight events. Patients glucose is persistently above 500. Will titrate insulin. Patient otherwise reports his breathing has improved. He reports continued mild chest tightness, but no overt SOB. He is AAOx3 and reports a +BM yesterday. Denies f/c , chest pain, palpitations, cough, n/v, or d/c. 12-point review of systems is otherwise negative without any additional acute complaints. Objective - Vital Signs/Intake and Output Vital Signs (last 24 hours): Temp Pulse Resp BP Pulse Ox 98.2 F 73 20 162/82 H 95 07/20/17 07:47 07/20/17 07:47 07/20/17 07:47 07/20/17 07:47 07/20/17 07:47 Intake and Output: 07/20/17 07/20/17 06:59 18:59 Intake Total 750 Output Total 800 Balance -50 - Medications Medications: Current Medications Acetaminophen (Tylenol 325mg Tab) 650 mg PO Q6 PRN PRN Reason: Fever >100.4 F Last Admin: 07/15/17 23:39 Dose: 650 mg Albuterol/Ipratropium (Duoneb 3 Mg/0.5 Mg (3 Ml) Ud) 3 ml INH RQ4 [facility] Last Admin: 07/20/17 04:51 Dose: 3 ml Amlodipine Besylate (Norvasc) 5 mg PO DAILY [facility] Last Admin: 07/19/17 11:49 Dose: 5 mg Carvedilol (Coreg) 25 mg PO BID [facility] Last Admin: 07/19/17 17:21 Dose: 25 mg Clopidogrel Bisulfate (Plavix) 75 mg PO DAILY [facility] Last Admin: 07/19/17 11:49 Dose: 75 mg Ferrous Gluconate (Fergon) 324 mg PO TID [facility] Last Admin: 07/19/17 17:21 Dose: 324 mg Furosemide (Lasix) 40 mg PO DAILY [facility] Stop: 07/24/17 12:31 Last Admin: 07/19/17 10:00 Dose: 40 mg Gabapentin (Neurontin) 300 mg PO HS [facility] Last Admin: 07/19/17 22:02 Dose: 300 mg Guaifenesin (Mucinex La) 600 mg PO BID [facility] Last Admin: 07/19/17 17:21 Dose: 600 mg Azithromycin 500 mg/ Sodium (Chloride) 250 mls @ 250 mls/hr IVPB DAILY [facility] PRN Reason: Protocol Last Admin: 07/19/17 11:00 Dose: 250 mls/hr Cefepime HCl 0.5 gm/ Sodium (Chloride) 50 mls @ 100 mls/hr IVPB Q12 [facility] PRN Reason: Protocol Last Admin: 07/19/17 22:10 Dose: 100 mls/hr Insulin Aspart (Novolog) 0 unit SC ACHS [facility] PRN Reason: Protocol Last Admin: 07/19/17 22:02 Dose: 9 unit Insulin Glargine (Lantus) 15 unit SC Q12 [facility] Last Admin: 07/19/17 22:03 Dose: 15 units Methylprednisolone (Solu-Medrol) 20 mg IVP Q12H [facility] Stop: 07/22/17 09:01 Last Admin: 07/19/17 22:00 Dose: 20 mg Montelukast Sodium (Singulair) 10 mg PO HS [facility] Last Admin: 07/19/17 22:01 Dose: 10 mg Rosuvastatin Calcium (Crestor) 5 mg PO HS [facility] Last Admin: 07/19/17 22:02 Dose: 5 mg Fluticasone/Salmeterol (Advair Diskus 100/50) 1 puff INH RQ12 [facility] Last Admin: 07/19/17 20:54 Dose: Not Given Vitamin B Complex/Vit C/Folic Acid (Nephro-Keith) 1 tab PO 0800 [facility] Last Admin: 07/19/17 11:49 Dose: 1 tab - Labs Labs: 07/20/17 06:58 07/20/17 06:58 APTT 40 SECONDS (21-34) H 07/15/17 07:14 - Additional Findings Additional findings: General: AAOX3, NAD HEENT: NCA, EOMI, PERRLA, NO cervical/supraclavicular/submandibular lymphadenopathy, NO pharyngeal erythema/exudate, Oral Mucosa is moist Cardio: +S1 and +S2, NO M/R/G Resp: Right Mid / Lower Lung Inspiratory Crackles, LLL rales GI: BSx4, Soft, Non-Tender, NO guarding/rebound tenderness Ext: Pulses are strong and equal, Capillary Refill is 2 seconds, No edema Neuro: CN II through XII are grossly intact Psych: Normal mood, Normal Affect Assessment and Plan - Assessment and Plan (Free Text) Assessment: 1). Right Lung Pneumonia 07/20: stop solumedrol 20mg IVP q12 due to persistently high blood sugar. Start prednisone 10mg PO BID Blood culture 07/14/17 is negative at 5 days Sputum culture 07/15/17 is negative Urine culture 07/14/17 shows NO growth Duoneb Q6H Azithromycin 500 mg IV 1x/day Cefepime 500 mg IV Q12H Guaifenesin 600 mg PO 2x/day Solumedrol 20 mg IV Q12H: this will have to be switched to Prednisone Taper by mouth 07/20/17 Singulair 10 mg PO HS Advair 100/50 1 puff PO Q12H 2). Hx CABG Coreg 25 mg PO 2x/day Plavix 75 mg PO 1x/day Crestor 5 mg PO HS Holding ASA secondary to low platelets 3). Hx DM 2 07/20: Continue Lantus 15u SC 12H. ISS on high dose already. Start Novolog 6u SC ACTID. Accuchecks q2H today to monitor. stop solumedrol 20mg IVP q12 due to persistently high blood sugar. Start prednisone 10mg PO BID Blood glucose elevated secondary to the Solumedrol ICU team increased Lantus to 15 U SC AM and PM starting 07/19/17 evening: this will have to be lowered once Prednisone Taper is instituted 07/20/17 Aspart ISS Gabapentin 300 mg PO HS for Diabetic Neuropathy Bilateral LE 4). Thrombocytopenia Heparin was D/C'd F/U HIT Abs Holding ASA Could be secondary to infection R Pneumonia? 5). Hx HLD Crestor 5 mg PO HS 6). Hx HTN Coreg 25 mg PO 2x/day Norvasc 5 mg PO 1x/day was added due to B/P uncontrolled 7). Metabolic Acidosis Likely secondary to infection R Pneumonia 8). CKD Stage [address] Saroj Everett HOLD ACEI/ARB Lasix 40 mg PO 1x/day with stop date 07/24/17 9). Hx Vasculitis Monitor 10). Iron Deficiency Ferrous Sulfate 324 mg PO TID 11). Prophylaxis Tylenol 650 mg PO Q6H PRN Fever SCDs Heprin D/C'd secondary to the Thrombocytopenia Case discussed with attending. All medical management as per Dr. Frantz Peralta.
[2017-07-20] MEDS: Multivitamin Vitamin B Complex (Nephro-Vite) Tab PO SCH (08:28)
[2017-07-20] MEDS: (Novolog) Insulin Aspart, Recombinant 100 u/ml 10 ml vial SC SCH ×6 (08:29→21:22)
[2017-07-20] MEDS: MethylPREDNISolone 40 mg Vial IVP SCH (08:29)
[2017-07-20 09:25] LABS: ANISOCYTOSIS SLIGHT; BANDS 5 % (0-2); LYMPHOCYTE 4 % (20-40); MONOCYTE 2 % (0-10); NEUTROPHIL 89 % (50-75); PLATELET ESTIMATE SLIGHTLY DECREASED (NORMAL); TOTAL CELLS COUNTED 100
[2017-07-20 09:26] LABS: HYPOCHROMIC SLIGHT; POLYCHROMIC SLIGHT
[2017-07-20] MEDS: guaiFENesin 600 mg ER Tab PO SCH ×2 (11:25→19:00)
[2017-07-20] MEDS: (Lantus) Insulin Glargine, Recombinant SC SCH ×2 (11:26→21:19)
[2017-07-20] MEDS: Azithromycin 500 MG in Sodium Chloride 0.9% 250 ML IVPB SCH (11:30)
--- NOTE | 2017-07-20 12:37 | CP.PCM.PN ---
Subjective - Date & Time of Evaluation Date of Evaluation: 07/20/17 Time of Evaluation: 12:36 - Subjective Subjective: Nephrology Consultation Note Assesemnt: Stable RUL pneumonia with septic shock HAGMA with hyperkalemia, hyperphosphatemia CHARLEE on CKD stage 4 likely hemodynamic ? ATN: improving ? 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 hold ACEI/ARB due to hyperkalemia/CHARLEE. increasede norvasc 10 mg. also on coreg no acute need for renal replacement therapy at this time Monitor Input/Output, daily weights and renal function with basic metabolic panel held neurontin to avoid neurotoxicity in severe CHARLEE, resume renal adjusted dose resume supplement Vit D 1000/day and continue iron tab 325 mg TID with meals added lasix 40 mg/day for few days Dose meds/antibiotics for reduced GFR. Avoid fleets enema/magnesium based laxatives. Avoid nephrotoxins/NSAIDs/ iodinated contrast (unless needed emergently) Glycemic control Further work up/management as per primary team Thanks for allowing me to participate in care of your patient. Will follow patient with you. Please call if any Qs. had d/w team and Ronen Everett Office: [phone] CC: shortness of breath and Pneumonia reason for consult: CHARLEE HPI: He is a 76 y/o M hx of CAD s/p CABG, DM, HTN since 2006, MPO ANCA vasculitis s/p kidney biopsy [facility] 08/31/2016. He had completed 4 doses of rituxan on oct 08 2016 with remission of renal vasculitis but has CKD stage 3/ 4 (baseline cr 2.3-2.4) recent removal of lump from Rt upper arm at [facility] came with SOB x 1 day and found to have RUL pneumonia with septic shock , renal consult for CHARLEE he feels bit better. still has SOB and cough. has monahan catheter ROS: Cardiovascular: No chest pain. Pulmonary: c/o shortness of breath and wheezing Gastrointestinal: denies abdominal pain No nausea. No vomiting. Genitourinary: No pain while urinating. Denies blood in urine. Rest all other negative except as mentioned in HPI exam: General Appearance: Comfortable, in no acute respiratory distress, co- operative . better appearing, obese Vitals reviewed and noted Head; Atraumatic, normocephalic ENT: no ulcers no thrush. Tongue is midline. Oropharynx: no rash or ulcers. EYES: Pupils are equal, round and reactive to light accommodation. Eye muscles and extraocular movement intact. Sclera is anicteric. Neck; supple no lymphadenopathy, no thyromegaly or bruit Lungs: improved respiratory rate/effort. Breath sounds bilateral + improved but resolving basal crackles Heart: Normal rate. s1s2 normal. No rub or gallop. Extremities: no edema. No varicose veins Neurological: Patient is alert, awake and oriented to person, place and time. No focal deficit. Strength bilateral appropriate and equal Skin: Warm and dry. Normal turgor. has vitiligo. Palpitation: Normal elasticity for age Abdomen: Abdomen is soft. Bowel sounds +. There is no abdominal tenderness, no guarding/rigidity or organomegaly Psych: normal insight and normal affect/mood MSK: no joint tenderness or swelling. Digits and nails normal, no deformity. has firm swelling over Rt humerus, mobile ? lipoma : kidney or bladder not palpable. Labs/imaging reviewed. Past medical history, past surgical history, family history, social history, allergy reviewed and noted as below Family hx: no hx of CKD. 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 Interstitial hemorrhage, RBC with casts in tubules, thyroidization of tubules, arterial intimal thickening and mild interstitial fibrosis. No glomerulus for IF or EM. 03/12/17: UA 30 protein no blood. pr/cr 245 mg/gr Ferritin 51 TSAT 30% PTH 178 Vit D 31 NA 145 K 4.4 Bicarb 23 BUN/Cr 39/3.1 Ca 9.2 GLucose 94 04/12/17: MPO titer >1:640, Sodium 146 potassium 4.4 bicarbonate 27 BU and 36 creatinine 2.3 MDRD GFR 30 Hemoglobin 12 UA no blood had 30 protein ratio of pr/ cr 245 mg/g of creatinine 06/09/17: UA 30 protein no blood but pr/cr ratio of 1031 mg/gr microalbumin >300 NA 144 K 5.1 BUN 39 cr 2.4 bicarb 22 (GFR 28) K 5.1 Hb 11.6 Objective - Vital Signs/Intake and Output Vital Signs (last 24 hours): Temp Pulse Resp BP Pulse Ox 98.2 F 73 20 162/82 H 95 07/20/17 07:47 07/20/17 07:47 07/20/17 07:47 07/20/17 11:26 07/20/17 07:47 Intake and Output: 07/20/17 07/20/17 06:59 18:59 Intake Total 750 Output Total 800 Balance -50 - Medications Medications: Current Medications Acetaminophen (Tylenol 325mg Tab) 650 mg PO Q6 PRN PRN Reason: Fever >100.4 F Last Admin: 07/15/17 23:39 Dose: 650 mg Albuterol/Ipratropium (Duoneb 3 Mg/0.5 Mg (3 Ml) Ud) 3 ml INH RQ4 [facility] Last Admin: 07/20/17 08:00 Dose: 3 ml Amlodipine Besylate (Norvasc) 10 mg PO DAILY [facility] Last Admin: 07/20/17 11:25 Dose: 10 mg Carvedilol (Coreg) 25 mg PO BID [facility] Last Admin: 07/20/17 11:25 Dose: 25 mg Clopidogrel Bisulfate (Plavix) 75 mg PO DAILY [facility] Last Admin: 07/20/17 11:25 Dose: 75 mg Ferrous Gluconate (Fergon) 324 mg PO TID [facility] Last Admin: 07/20/17 11:26 Dose: 324 mg Furosemide (Lasix) 40 mg PO DAILY [facility] Stop: 07/24/17 12:31 Last Admin: 07/20/17 11:26 Dose: 40 mg Gabapentin (Neurontin) 300 mg PO HS [facility] Last Admin: 07/19/17 22:02 Dose: 300 mg Guaifenesin (Mucinex La) 600 mg PO BID [facility] Last Admin: 07/20/17 11:25 Dose: 600 mg Azithromycin 500 mg/ Sodium (Chloride) 250 mls @ 250 mls/hr IVPB DAILY [facility] PRN Reason: Protocol Last Admin: 07/20/17 11:30 Dose: 250 mls/hr Cefepime HCl 0.5 gm/ Sodium (Chloride) 50 mls @ 100 mls/hr IVPB Q12 [facility] PRN Reason: Protocol Last Admin: 07/20/17 11:00 Dose: 100 mls/hr Insulin Aspart (Novolog) 0 unit SC ACHS [facility] PRN Reason: Protocol Last Admin: 07/20/17 08:29 Dose: 12 unit Insulin Aspart (Novolog) 6 unit SC ACTID [facility] Insulin Glargine (Lantus) 15 unit SC Q12 [facility] Last Admin: 07/20/17 11:26 Dose: 15 units Montelukast Sodium (Singulair) 10 mg PO HS [facility] Last Admin: 07/19/17 22:01 Dose: 10 mg Prednisone (Prednisone Tab) 10 mg PO Q12H [facility] Rosuvastatin Calcium (Crestor) 5 mg PO HS [facility] Last Admin: 07/19/17 22:02 Dose: 5 mg Fluticasone/Salmeterol (Advair Diskus 100/50) 1 puff INH RQ12 [facility] Last Admin: 07/19/17 20:54 Dose: Not Given Vitamin B Complex/Vit C/Folic Acid (Nephro-Keith) 1 tab PO 0800 [facility] Last Admin: 07/20/17 08:28 Dose: 1 tab - Labs Labs: 07/20/17 06:58 07/20/17 06:58 APTT 40 SECONDS (21-34) H 07/15/17 07:14
[2017-07-20] MEDS: Fluticasone-Salmeterol 100-50mcg Diskus INH SCH (13:31)
[2017-07-20] MEDS ORDERED: (Novolog) Insulin Aspart, Recombinant 100 u/ml 10 ml vial SC ONE (15:09)
[2017-07-21] MEDS: Albuterol-Ipratrop 3 mg / 0.5 (3 ml) UD INH SCH ×6 (03:37→19:49)
--- NOTE | 2017-07-21 07:49 | CP.PCM.PN ---
Subjective - Date & Time of Evaluation Date of Evaluation: 07/21/17 Time of Evaluation: 07:10 - Subjective Subjective: PGY2 Resident - Medicine Progress Note Patient seen and examined at bedside. No acute distress. No overnight events. Patient admits that his home glucose readings are consistently in the 400 to 500 with his use of home insulin. Pt was on moderate carb consistent diet, changed to high carb consistent diet. He reports he is breathing better today. Denies chest tightness. Denies f/c, chest pain, palpitations, cough, n/v, or d/ c. 12-point review of systems is otherwise negative without any additional acute complaints. Objective - Vital Signs/Intake and Output Vital Signs (last 24 hours): Temp Pulse Resp BP Pulse Ox 98.5 F 62 20 142/78 95 07/21/17 07:40 07/21/17 07:40 07/21/17 07:40 07/21/17 07:40 07/21/17 07:40 Intake and Output: 07/21/17 07/21/17 06:59 18:59 Intake Total 250 Balance 250 - Medications Medications: Current Medications Acetaminophen (Tylenol 325mg Tab) 650 mg PO Q6 PRN PRN Reason: Fever >100.4 F Last Admin: 07/15/17 23:39 Dose: 650 mg Albuterol/Ipratropium (Duoneb 3 Mg/0.5 Mg (3 Ml) Ud) 3 ml INH RQ4 [facility] Last Admin: 07/21/17 03:37 Dose: Not Given Amlodipine Besylate (Norvasc) 10 mg PO DAILY [facility] Last Admin: 07/20/17 11:25 Dose: 10 mg Carvedilol (Coreg) 25 mg PO BID [facility] Last Admin: 07/20/17 17:14 Dose: 25 mg Clopidogrel Bisulfate (Plavix) 75 mg PO DAILY [facility] Last Admin: 07/20/17 11:25 Dose: 75 mg Ferrous Gluconate (Fergon) 324 mg PO TID [facility] Last Admin: 07/20/17 17:14 Dose: 324 mg Furosemide (Lasix) 40 mg PO DAILY [facility] Stop: 07/24/17 12:31 Last Admin: 07/20/17 11:26 Dose: 40 mg Gabapentin (Neurontin) 300 mg PO HS [facility] Last Admin: 07/20/17 21:37 Dose: 300 mg Guaifenesin (Mucinex La) 600 mg PO BID [facility] Last Admin: 07/20/17 19:00 Dose: 600 mg Azithromycin 500 mg/ Sodium (Chloride) 250 mls @ 250 mls/hr IVPB DAILY [facility] PRN Reason: Protocol Last Admin: 07/20/17 11:30 Dose: 250 mls/hr Cefepime HCl 0.5 gm/ Sodium (Chloride) 50 mls @ 100 mls/hr IVPB Q12 [facility] PRN Reason: Protocol Last Admin: 07/20/17 21:27 Dose: 100 mls/hr Insulin Aspart (Novolog) 0 unit SC ACHS [facility] PRN Reason: Protocol Last Admin: 07/20/17 21:22 Dose: Not Given Insulin Aspart (Novolog) 6 unit SC ACTID [facility] Last Admin: 07/20/17 16:30 Dose: Not Given Insulin Glargine (Lantus) 15 unit SC Q12 [facility] Last Admin: 07/20/17 21:19 Dose: 15 units Montelukast Sodium (Singulair) 10 mg PO HS [facility] Last Admin: 07/20/17 21:26 Dose: 10 mg Prednisone (Prednisone Tab) 10 mg PO Q12H [facility] Last Admin: 07/20/17 21:00 Dose: 10 mg Rosuvastatin Calcium (Crestor) 5 mg PO HS [facility] Last Admin: 07/20/17 21:19 Dose: 5 mg Fluticasone/Salmeterol (Advair Diskus 100/50) 1 puff INH RQ12 [facility] Last Admin: 07/20/17 13:31 Dose: Not Given Vitamin B Complex/Vit C/Folic Acid (Nephro-Keith) 1 tab PO 0800 [facility] Last Admin: 07/20/17 08:28 Dose: 1 tab - Labs Labs: 07/20/17 06:58 07/20/17 06:58 APTT 40 SECONDS (21-34) H 07/15/17 07:14 - Additional Findings Additional findings: General: AAOX3, NAD HEENT: NCA, EOMI, PERRLA, NO lymphadenopathy, NO pharyngeal erythema/exudate, Oral Mucosa is moist Cardio: +S1 and +S2, NO M/R/G Resp: +Inspiratory Crackles (mild, b/l), No LLL rales, No Wheezes GI: BSx4, Soft, Non-Tender, NO guarding/rebound tenderness Ext: Pulses are strong and equal, Capillary Refill is 2 seconds, No edema Neuro: CN II through XII are grossly intact Psych: Normal mood, Normal Affect Assessment and Plan - Assessment and Plan (Free Text) Assessment: 1). Right Lung Pneumonia 07/21: Continue prednisone 10mg PO BID. Lower to prednisone 10mg PO qD tomorrow . No wheezing / rales today; CTA 07/20: stop solumedrol 20mg IVP q12 due to persistently high blood sugar. Start prednisone 10mg PO BID Blood culture 07/14/17 is negative at 5 days Sputum culture 07/15/17 is negative Urine culture 07/14/17 shows NO growth Duoneb Q6H Azithromycin 500 mg IV 1x/day Cefepime 500 mg IV Q12H Guaifenesin 600 mg PO 2x/day Solumedrol 20 mg IV Q12H: this will have to be switched to Prednisone Taper by mouth 07/20/17 Singulair 10 mg PO HS Advair 100/50 1 puff PO Q12H 2). Hx CABG Coreg 25 mg PO 2x/day Plavix 75 mg PO 1x/day Crestor 5 mg PO HS Holding ASA secondary to low platelets 3). Hx DM 2 07/21: Pt received approx 100u of total insuline yesterday and glucose still remains at 350. Inc Lantus to 30u SC q12H Continue Novolog 6u SC ACTID Continue ISS- high dose 07/20: Continue Lantus 15u SC 12H. ISS on high dose already. Start Novolog 6u SC ACTID. Accuchecks q2H today to monitor. stop solumedrol 20mg IVP q12 due to persistently high blood sugar. Start prednisone 10mg PO BID Blood glucose elevated secondary to the Solumedrol ICU team increased Lantus to 15 U SC AM and PM starting 07/19/17 evening: this will have to be lowered once Prednisone Taper is instituted 07/20/17 Aspart ISS Gabapentin 300 mg PO HS for Diabetic Neuropathy Bilateral LE 4). 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 5). Hx HLD Crestor 5 mg PO HS 6). Hx HTN Coreg 25 mg PO 2x/day Norvasc 5 mg PO 1x/day was added due to B/P uncontrolled 7). Metabolic Acidosis Likely secondary to infection R Pneumonia 8). Acute on CKD Stage [address] Saroj Everett HOLD ACEI/ARB Lasix 40 mg PO 1x/day with stop date 07/24/17 9). Hx Vasculitis Monitor 10). Iron Deficiency Ferrous Sulfate 324 mg PO TID 11). Prophylaxis Tylenol 650 mg PO Q6H PRN Fever SCDs Heprin D/C'd secondary to the Thrombocytopenia Case discussed with attending. All medical management as per Dr. Frantz Peralta.
[2017-07-21 07:51] LABS: BASO % 0.1 % (0.0-2.0); HEMOGLOBIN 10.8 g/dL (12.0-18.0); LYMPH # 0.6 K/uL (1.0-4.3); LYMPH % 4.9 % (20.0-40.0); MEAN CELL VOLUME 89.8 fL (80.0-94.0); MEAN CORPUSCULAR HGB CONC 33.4 g/dL (33.0-37.0); MONO # 0.6 K/uL (0.0-0.8); MONO % 4.7 % (0.0-10.0); NEUT % 90.3 % (50.0-75.0); PLATELET COUNT 138 K/uL (130-400); RBC 3.61 Mil/uL (4.40-5.90); RED CELL DISTRIBUTION WIDTH 15.3 % (11.5-14.5); WHITE BLOOD COUNT 13.3 K/uL (4.8-10.8)
[2017-07-21] MEDS: Multivitamin Vitamin B Complex (Nephro-Vite) Tab PO SCH (08:01)
[2017-07-21] MEDS: (Novolog) Insulin Aspart, Recombinant 100 u/ml 10 ml vial SC SCH ×7 (08:01→21:44)
[2017-07-21 08:30] LABS: ALBUMIN 3.2 g/dL (3.5-5.0); CALCIUM 9.4 mg/dl (8.6-10.4)
[2017-07-21 08:47] LABS: BANDS 4 % (0-2); LYMPHOCYTE 3 % (20-40); MONOCYTE 6 % (0-10); MYELOCYTE 2 % (0-0); NEUTROPHIL 85 % (50-75); TOTAL CELLS COUNTED 100
[2017-07-21 08:48] LABS: ANISOCYTOSIS SLIGHT; PLATELET ESTIMATE NORMAL (NORMAL)
[2017-07-21] MEDS: guaiFENesin 600 mg ER Tab PO SCH ×2 (09:43→17:00)
[2017-07-21] MEDS: Saccharomyces Boulardi 250 mg Cap PO SCH ×2 (09:59→17:01)
[2017-07-21] MEDS: (Lantus) Insulin Glargine, Recombinant SC SCH ×2 (09:59→21:45)
[2017-07-21] MEDS: Azithromycin 500 MG in Sodium Chloride 0.9% 250 ML IVPB SCH (10:29)
--- NOTE | 2017-07-21 16:45 | CP.PCM.PN ---
Subjective - Date & Time of Evaluation Date of Evaluation: 07/21/17 Time of Evaluation: 16:44 - Subjective Subjective: Nephrology Consultation Note Assesemnt: Stable RUL pneumonia with septic shock HAGMA with hyperkalemia, hyperphosphatemia CHARLEE on CKD stage 4 likely hemodynamic ? ATN: improving ? 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 hold ACEI/ARB due to hyperkalemia/CHARLEE. increasede norvasc 10 mg. also on coreg no acute need for renal replacement therapy at this time Monitor Input/Output, daily weights and renal function with basic metabolic panel held neurontin to avoid neurotoxicity in severe CHARLEE, resume renal adjusted dose resume supplement Vit D 1000/day and continue iron tab 325 mg TID with meals added lasix 40 mg/day for few days Dose meds/antibiotics for reduced GFR. Avoid fleets enema/magnesium based laxatives. Avoid nephrotoxins/NSAIDs/ iodinated contrast (unless needed emergently) Glycemic control Further work up/management as per primary team Thanks for allowing me to participate in care of your patient. Will follow patient with you. Please call if any Qs. had d/w team and Rnoen Everett Office: [phone] CC: shortness of breath and Pneumonia reason for consult: CHARLEE HPI: He is a 76 y/o M hx of CAD s/p CABG, DM, HTN since 2006, MPO ANCA vasculitis s/p kidney biopsy [facility] [place]. He had completed 4 doses of rituxan on oct 08 2016 with remission of renal vasculitis but has CKD stage 3/ 4 (baseline cr 2.3-2.4) recent removal of lump from Rt upper arm at [facility] came with SOB x 1 day and found to have RUL pneumonia with septic shock , renal consult for CHARLEE he feels bit better. still has SOB and cough. has monahan catheter ROS: Cardiovascular: No chest pain. Pulmonary: improved shortness of breath and no wheezing Gastrointestinal: denies abdominal pain No nausea. No vomiting. Genitourinary: No pain while urinating. Denies blood in urine. Rest all other negative except as mentioned in HPI exam: General Appearance: Comfortable, in no acute respiratory distress, co- operative . better appearing, obese Vitals reviewed and noted Head; Atraumatic, normocephalic ENT: no ulcers no thrush. Tongue is midline. Oropharynx: no rash or ulcers. EYES: Pupils are equal, round and reactive to light accommodation. Eye muscles and extraocular movement intact. Sclera is anicteric. Neck; supple no lymphadenopathy, no thyromegaly or bruit Lungs: improved respiratory rate/effort. Breath sounds bilateral + improved but resolving basal crackles Heart: Normal rate. s1s2 normal. No rub or gallop. Extremities: no edema. No varicose veins Neurological: Patient is alert, awake and oriented to person, place and time. No focal deficit. Strength bilateral appropriate and equal Skin: Warm and dry. Normal turgor. has vitiligo. Palpitation: Normal elasticity for age Abdomen: Abdomen is soft. Bowel sounds +. There is no abdominal tenderness, no guarding/rigidity or organomegaly Psych: normal insight and normal affect/mood MSK: no joint tenderness or swelling. Digits and nails normal, no deformity. has firm swelling over Rt humerus, mobile ? lipoma : kidney or bladder not palpable. Labs/imaging reviewed. Past medical history, past surgical history, family history, social history, allergy reviewed and noted as below Family hx: no hx of CKD. 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 Interstitial hemorrhage, RBC with casts in tubules, thyroidization of tubules, arterial intimal thickening and mild interstitial fibrosis. No glomerulus for IF or EM. 03/12/17: UA 30 protein no blood. pr/cr 245 mg/gr Ferritin 51 TSAT 30% PTH 178 Vit D 31 NA 145 K 4.4 Bicarb 23 BUN/Cr 39/3.1 Ca 9.2 GLucose 94 04/12/17: MPO titer >1:640, Sodium 146 potassium 4.4 bicarbonate 27 BU and 36 creatinine 2.3 MDRD GFR 30 Hemoglobin 12 UA no blood had 30 protein ratio of pr/ cr 245 mg/g of creatinine 06/09/17: UA 30 protein no blood but pr/cr ratio of 1031 mg/gr microalbumin >300 NA 144 K 5.1 BUN 39 cr 2.4 bicarb 22 (GFR 28) K 5.1 Hb 11.6 Objective - Vital Signs/Intake and Output Vital Signs (last 24 hours): Temp Pulse Resp BP Pulse Ox 97.9 F 68 20 126/73 93 L 07/21/17 15:00 07/21/17 15:00 07/21/17 15:00 07/21/17 15:00 07/21/17 15:00 Intake and Output: 07/21/17 07/21/17 06:59 18:59 Intake Total 250 780 Balance 250 780 - Medications Medications: Current Medications Acetaminophen (Tylenol 325mg Tab) 650 mg PO Q6 PRN PRN Reason: Fever >100.4 F Last Admin: 07/15/17 23:39 Dose: 650 mg Albuterol/Ipratropium (Duoneb 3 Mg/0.5 Mg (3 Ml) Ud) 3 ml INH RQ4 [facility] Last Admin: 07/21/17 13:35 Dose: 3 ml Amlodipine Besylate (Norvasc) 10 mg PO DAILY [facility] Last Admin: 07/21/17 10:03 Dose: 10 mg Carvedilol (Coreg) 25 mg PO BID [facility] Last Admin: 07/21/17 09:43 Dose: 25 mg Clopidogrel Bisulfate (Plavix) 75 mg PO DAILY [facility] Last Admin: 07/21/17 09:43 Dose: 75 mg Ferrous Gluconate (Fergon) 324 mg PO TID [facility] Last Admin: 07/21/17 14:24 Dose: 324 mg Furosemide (Lasix) 40 mg PO DAILY [facility] Stop: 07/24/17 12:31 Last Admin: 07/21/17 09:43 Dose: 40 mg Gabapentin (Neurontin) 300 mg PO HS [facility] Last Admin: 07/20/17 21:37 Dose: 300 mg Guaifenesin (Mucinex La) 600 mg PO BID [facility] Last Admin: 07/21/17 09:43 Dose: 600 mg Azithromycin 500 mg/ Sodium (Chloride) 250 mls @ 250 mls/hr IVPB DAILY [facility] PRN Reason: Protocol Last Admin: 07/21/17 10:29 Dose: 250 mls/hr Cefepime HCl 0.5 gm/ Sodium (Chloride) 50 mls @ 100 mls/hr IVPB Q12 [facility] PRN Reason: Protocol Last Admin: 07/21/17 09:59 Dose: 100 mls/hr Insulin Aspart (Novolog) 0 unit SC ACHS [facility] PRN Reason: Protocol Last Admin: 07/21/17 16:41 Dose: 6 unit Insulin Aspart (Novolog) 6 unit SC ACTID [facility] Last Admin: 07/21/17 16:41 Dose: 6 unit Insulin Glargine (Lantus) 30 unit SC Q12 [facility] Last Admin: 07/21/17 09:59 Dose: 30 units Montelukast Sodium (Singulair) 10 mg PO HS [facility] Last Admin: 07/20/17 21:26 Dose: 10 mg Prednisone (Prednisone Tab) 10 mg PO Q12H [facility] Stop: 07/22/17 03:00 Last Admin: 07/21/17 08:00 Dose: 10 mg Prednisone (Prednisone Tab) 10 mg PO DAILY [facility] Rosuvastatin Calcium (Crestor) 5 mg PO HS [facility] Last Admin: 07/20/17 21:19 Dose: 5 mg Saccharomyces Boulardii (Florastor) 250 mg PO BID [facility] Last Admin: 07/21/17 09:59 Dose: 250 mg Fluticasone/Salmeterol (Advair Diskus 100/50) 1 puff INH RQ12 [facility] Last Admin: 07/20/17 13:31 Dose: Not Given Vitamin B Complex/Vit C/Folic Acid (Nephro-Keith) 1 tab PO 0800 [facility] Last Admin: 07/21/17 08:01 Dose: 1 tab - Labs Labs: 07/21/17 07:34 07/21/17 07:34 APTT 40 SECONDS (21-34) H 07/15/17 07:14
[2017-07-22] MEDS: Albuterol-Ipratrop 3 mg / 0.5 (3 ml) UD INH SCH ×5 (00:50→16:38)
[2017-07-22 07:42] LABS: BASO % 0.2 % (0.0-2.0); EOS % 0.1 % (0.0-4.0); LYMPH # 1.1 K/uL (1.0-4.3); LYMPH % 8.9 % (20.0-40.0); MEAN CELL VOLUME 89.9 fL (80.0-94.0); MEAN CORPUSCULAR HEMOGLOBIN 30.4 pg (27.0-31.0); MEAN CORPUSCULAR HGB CONC 33.8 g/dL (33.0-37.0); MEAN PLATELET VOLUME 10.7 fL (7.2-11.7); MONO # 0.5 K/uL (0.0-0.8); MONO % 4.3 % (0.0-10.0); NEUT # 10.9 K/uL (1.8-7.0); NEUT % 86.5 % (50.0-75.0); PLATELET COUNT 164 K/uL (130-400); RBC 3.64 Mil/uL (4.40-5.90); RED CELL DISTRIBUTION WIDTH 14.9 % (11.5-14.5); WHITE BLOOD COUNT 12.6 K/uL (4.8-10.8)
[2017-07-22 07:57] LABS: CALCIUM 8.8 mg/dl (8.6-10.4)
[2017-07-22] MEDS: Fluticasone-Salmeterol 100-50mcg Diskus INH SCH (08:29)
[2017-07-22] MEDS: (Novolog) Insulin Aspart, Recombinant 100 u/ml 10 ml vial SC SCH ×4 (08:29→12:20)
[2017-07-22] MEDS: Multivitamin Vitamin B Complex (Nephro-Vite) Tab PO SCH (08:29)
--- NOTE | 2017-07-22 08:56 | CP.PCM.PN ---
Subjective - Date & Time of Evaluation Date of Evaluation: 07/22/17 Time of Evaluation: 09:00 - Subjective Subjective: Medicine Progress Note for Dr. Peralta Patient seen and examined at bedside. No acute events reported by staff overnight. Patient has no current complaints. Denies fever, chills, shortness of breath, chest pain or coughs. I advised the patient to have a better blood sugar control and the necessity to follow up with PMD to adjust this diabetes medication. He further denies dizziness, headache, nausea, vomiting or urinary symptoms. Objective - Vital Signs/Intake and Output Vital Signs (last 24 hours): Temp Pulse Resp BP Pulse Ox 98.2 F 72 20 147/81 96 07/22/17 08:01 07/22/17 08:01 07/22/17 08:01 07/22/17 08:01 07/22/17 08:01 Intake and Output: 07/22/17 07/22/17 06:59 18:59 Intake Total 300 Balance 300 - Medications Medications: Current Medications Acetaminophen (Tylenol 325mg Tab) 650 mg PO Q6 PRN PRN Reason: Fever >100.4 F Last Admin: 07/15/17 23:39 Dose: 650 mg Albuterol/Ipratropium (Duoneb 3 Mg/0.5 Mg (3 Ml) Ud) 3 ml INH RQ4 [facility] Last Admin: 07/22/17 08:29 Dose: 3 ml Amlodipine Besylate (Norvasc) 10 mg PO DAILY [facility] Last Admin: 07/21/17 10:03 Dose: 10 mg Carvedilol (Coreg) 25 mg PO BID [facility] Last Admin: 07/21/17 17:01 Dose: 25 mg Clopidogrel Bisulfate (Plavix) 75 mg PO DAILY [facility] Last Admin: 07/21/17 09:43 Dose: 75 mg Ferrous Gluconate (Fergon) 324 mg PO TID [facility] Last Admin: 07/21/17 17:01 Dose: 324 mg Furosemide (Lasix) 40 mg PO DAILY [facility] Stop: 07/24/17 12:31 Last Admin: 07/21/17 09:43 Dose: 40 mg Gabapentin (Neurontin) 300 mg PO HS [facility] Last Admin: 07/21/17 21:47 Dose: 300 mg Guaifenesin (Mucinex La) 600 mg PO BID [facility] Last Admin: 07/21/17 17:00 Dose: 600 mg Azithromycin 500 mg/ Sodium (Chloride) 250 mls @ 250 mls/hr IVPB DAILY [facility] PRN Reason: Protocol Last Admin: 07/21/17 10:29 Dose: 250 mls/hr Cefepime HCl 0.5 gm/ Sodium (Chloride) 50 mls @ 100 mls/hr IVPB Q12 [facility] PRN Reason: Protocol Last Admin: 07/21/17 21:46 Dose: 100 mls/hr Insulin Aspart (Novolog) 0 unit SC ACHS [facility] PRN Reason: Protocol Last Admin: 07/22/17 08:30 Dose: 6 unit Insulin Aspart (Novolog) 6 unit SC ACTID [facility] Last Admin: 07/22/17 08:29 Dose: 6 unit Insulin Glargine (Lantus) 30 unit SC Q12 [facility] Last Admin: 07/21/17 21:45 Dose: 30 units Montelukast Sodium (Singulair) 10 mg PO HS [facility] Last Admin: 07/21/17 21:47 Dose: 10 mg Prednisone (Prednisone Tab) 10 mg PO DAILY [facility] Rosuvastatin Calcium (Crestor) 5 mg PO HS [facility] Last Admin: 07/21/17 21:45 Dose: 5 mg Saccharomyces Boulardii (Florastor) 250 mg PO BID [facility] Last Admin: 07/21/17 17:01 Dose: 250 mg Fluticasone/Salmeterol (Advair Diskus 100/50) 1 puff INH RQ12 [facility] Last Admin: 07/22/17 08:29 Dose: 1 puff Vitamin B Complex/Vit C/Folic Acid (Nephro-Keith) 1 tab PO 0800 [facility] Last Admin: 07/22/17 08:29 Dose: 1 tab - Labs Labs: 07/22/17 07:36 07/22/17 07:36 APTT 40 SECONDS (21-34) H 07/15/17 07:14 - Constitutional Appears: Well, Non-toxic, No Acute Distress - Head Exam Head Exam: ATRAUMATIC, NORMOCEPHALIC - Eye Exam Eye Exam: EOMI, Normal appearance - ENT Exam ENT Exam: Mucous Membranes Moist - Neck Exam Neck Exam: Normal Inspection - Respiratory Exam Respiratory Exam: Clear to Ausculation Bilateral, NORMAL BREATHING PATTERN. absent: Wheezes, Respiratory Distress - Cardiovascular Exam Cardiovascular Exam: REGULAR RHYTHM, +S1, +S2. absent: Murmur - GI/Abdominal Exam GI & Abdominal Exam: Soft, Normal Bowel Sounds. absent: Tenderness - Extremities Exam Extremities Exam: Normal Capillary Refill - Neurological Exam Neurological Exam: Alert, Awake, Oriented x3 - Psychiatric Exam Psychiatric exam: Normal Affect, Normal Mood - Skin Skin Exam: Dry, Warm Assessment and Plan - Assessment and Plan (Free Text) Assessment: 1). Right Lung Pneumonia 07/22: Prednisone 10mg PO once was given today AM Repeat CXR shows significant improvement (see report) 07/21: Continue prednisone 10mg PO BID. Lower to prednisone 10mg PO qD tomorrow . No wheezing / rales today; CTA 07/20: stop solumedrol 20mg IVP q12 due to persistently high blood sugar. Start prednisone 10mg PO BID Blood culture 07/14/17 is negative at 5 days Sputum culture 07/15/17 is negative Urine culture 07/14/17 shows NO growth Duoneb Q6H Azithromycin 500 mg IV 1x/day Cefepime 500 mg IV Q12H Guaifenesin 600 mg PO 2x/day Solumedrol 20 mg IV Q12H: this will have to be switched to Prednisone Taper by mouth 07/20/17 Singulair 10 mg PO HS Advair 100/50 1 puff PO Q12H 2). Hx CABG Coreg 25 mg PO 2x/day Plavix 75 mg PO 1x/day Crestor 5 mg PO HS Holding ASA secondary to low platelets 3). Hx DM 2 Patient will follow up with PMD within 2 days for DM meds adjustment 07/21: Pt received approx 100u of total insuline yesterday and glucose still remains at 350. Inc Lantus to 30u SC q12H Continue Novolog 6u SC ACTID Continue ISS- high dose 07/20: Continue Lantus 15u SC 12H. ISS on high dose already. Start Novolog 6u SC ACTID. Accuchecks q2H today to monitor. stop solumedrol 20mg IVP q12 due to persistently high blood sugar. Start prednisone 10mg PO BID Blood glucose elevated secondary to the Solumedrol ICU team increased Lantus to 15 U SC AM and PM starting 07/19/17 evening: this will have to be lowered once Prednisone Taper is instituted 07/20/17 Aspart ISS Gabapentin 300 mg PO HS for Diabetic Neuropathy Bilateral LE 4). 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 5). Hx HLD Crestor 5 mg PO HS 6). Hx HTN Coreg 25 mg PO 2x/day Norvasc 5 mg PO 1x/day was added due to B/P uncontrolled 7). Metabolic Acidosis Likely secondary to infection R Pneumonia 8). Acute on CKD Stage [address] Saroj Everett HOLD ACEI/ARB Lasix 40 mg PO 1x/day with stop date 07/24/17 9). Hx Vasculitis Monitor 10). Iron Deficiency Ferrous Sulfate 324 mg PO TID 11). Prophylaxis Tylenol 650 mg PO Q6H PRN Fever SCDs Heprin D/C'd secondary to the Thrombocytopenia Patient is medically stable to be discharged Case discussed with attending. All medical management as per Dr. Frantz Peralta.
[2017-07-22] MEDS: guaiFENesin 600 mg ER Tab PO SCH (09:47)
[2017-07-22] MEDS: Saccharomyces Boulardi 250 mg Cap PO SCH (09:49)
[2017-07-22] MEDS: (Lantus) Insulin Glargine, Recombinant SC SCH (09:50)
[2017-07-22 09:59] LABS: BANDS 2 % (0-2); LYMPHOCYTE 4 % (20-40); MONOCYTE 2 % (0-10); NEUTROPHIL 92 % (50-75); PLATELET ESTIMATE NORMAL (NORMAL); TOTAL CELLS COUNTED 100
[2017-07-22] MEDS: Azithromycin 500 MG in Sodium Chloride 0.9% 250 ML IVPB SCH (10:22)
--- NOTE | 2017-07-22 12:43 | CP.PCM.PN ---
Subjective - Date & Time of Evaluation Date of Evaluation: 07/22/17 Time of Evaluation: 12:42 - Subjective Subjective: Nephrology Consultation Note Assesemnt: Stable RUL pneumonia with septic shock HAGMA with hyperkalemia, hyperphosphatemia CHARLEE on CKD stage 4 likely hemodynamic ? ATN: improving ? 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 hold ACEI/ARB due to hyperkalemia/CHARLEE. increased norvasc 10 mg. also on coreg no acute need for renal replacement therapy at this time Monitor Input/Output, daily weights and renal function with basic metabolic panel held neurontin to avoid neurotoxicity in severe CHARLEE, resume renal adjusted dose resume supplement Vit D 1000/day and continue iron tab 325 mg TID with meals can d/c lasix 40 at d/c Dose meds/antibiotics for reduced GFR. Avoid fleets enema/magnesium based laxatives. Avoid nephrotoxins/NSAIDs/ iodinated contrast (unless needed emergently) Glycemic control Further work up/management as per primary team Thanks for allowing me to participate in care of your patient. Will follow patient with you. Please call if any Qs. had d/w team and Ronen Everett Office: [phone] CC: shortness of breath and Pneumonia reason for consult: CHARLEE HPI: He is a 76 y/o M hx of CAD s/p CABG, DM, HTN since 2006, MPO ANCA vasculitis s/p kidney biopsy [facility] [place]. He had completed 4 doses of rituxan on oct 08 2016 with remission of renal vasculitis but has CKD stage 3/ 4 (baseline cr 2.3-2.4) recent removal of lump from Rt upper arm at [facility] came with SOB x 1 day and found to have RUL pneumonia with septic shock , renal consult for CHARLEE he feels bit better. still has SOB and cough. has monahan catheter ROS: Cardiovascular: No chest pain. Pulmonary: resolved shortness of breath and no wheezing Gastrointestinal: denies abdominal pain No nausea. No vomiting. Genitourinary: No pain while urinating. Denies blood in urine. Rest all other negative except as mentioned in HPI exam: General Appearance: Comfortable, in no acute respiratory distress, co- operative . better appearing, obese Vitals reviewed and noted Head; Atraumatic, normocephalic ENT: no ulcers no thrush. Tongue is midline. Oropharynx: no rash or ulcers. EYES: Pupils are equal, round and reactive to light accommodation. Eye muscles and extraocular movement intact. Sclera is anicteric. Neck; supple no lymphadenopathy, no thyromegaly or bruit Lungs: improved respiratory rate/effort. Breath sounds bilateral + improved clear Heart: Normal rate. s1s2 normal. No rub or gallop. Extremities: no edema. No varicose veins Neurological: Patient is alert, awake and oriented to person, place and time. No focal deficit. Strength bilateral appropriate and equal Skin: Warm and dry. Normal turgor. has vitiligo. Palpitation: Normal elasticity for age Abdomen: Abdomen is soft. Bowel sounds +. There is no abdominal tenderness, no guarding/rigidity or organomegaly Psych: normal insight and normal affect/mood MSK: no joint tenderness or swelling. Digits and nails normal, no deformity. has firm swelling over Rt humerus, mobile ? lipoma : kidney or bladder not palpable. Labs/imaging reviewed. Past medical history, past surgical history, family history, social history, allergy reviewed and noted as below Family hx: no hx of CKD. 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 Interstitial hemorrhage, RBC with casts in tubules, thyroidization of tubules, arterial intimal thickening and mild interstitial fibrosis. No glomerulus for IF or EM. 03/12/17: UA 30 protein no blood. pr/cr 245 mg/gr Ferritin 51 TSAT 30% PTH 178 Vit D 31 NA 145 K 4.4 Bicarb 23 BUN/Cr 39/3.1 Ca 9.2 GLucose 94 04/12/17: MPO titer >1:640, Sodium 146 potassium 4.4 bicarbonate 27 BU and 36 creatinine 2.3 MDRD GFR 30 Hemoglobin 12 UA no blood had 30 protein ratio of pr/ cr 245 mg/g of creatinine 06/09/17: UA 30 protein no blood but pr/cr ratio of 1031 mg/gr microalbumin >300 NA 144 K 5.1 BUN 39 cr 2.4 bicarb 22 (GFR 28) K 5.1 Hb 11.6 Objective - Vital Signs/Intake and Output Vital Signs (last 24 hours): Temp Pulse Resp BP Pulse Ox 98.2 F 72 20 147/81 96 07/22/17 08:01 07/22/17 08:01 07/22/17 08:01 07/22/17 09:48 07/22/17 08:01 Intake and Output: 07/22/17 07/22/17 06:59 18:59 Intake Total 300 Balance 300 - Medications Medications: Current Medications Acetaminophen (Tylenol 325mg Tab) 650 mg PO Q6 PRN PRN Reason: Fever >100.4 F Last Admin: 07/15/17 23:39 Dose: 650 mg Albuterol/Ipratropium (Duoneb 3 Mg/0.5 Mg (3 Ml) Ud) 3 ml INH RQ4 [facility] Last Admin: 07/22/17 08:29 Dose: 3 ml Amlodipine Besylate (Norvasc) 10 mg PO DAILY [facility] Last Admin: 07/22/17 09:47 Dose: 10 mg Carvedilol (Coreg) 25 mg PO BID [facility] Last Admin: 07/22/17 09:47 Dose: 25 mg Clopidogrel Bisulfate (Plavix) 75 mg PO DAILY [facility] Last Admin: 07/22/17 09:49 Dose: 75 mg Ferrous Gluconate (Fergon) 324 mg PO TID [facility] Last Admin: 07/22/17 09:47 Dose: 324 mg Furosemide (Lasix) 40 mg PO DAILY [facility] Stop: 07/24/17 12:31 Last Admin: 07/22/17 09:48 Dose: 40 mg Gabapentin (Neurontin) 300 mg PO HS [facility] Last Admin: 07/21/17 21:47 Dose: 300 mg Guaifenesin (Mucinex La) 600 mg PO BID [facility] Last Admin: 07/22/17 09:47 Dose: 600 mg Azithromycin 500 mg/ Sodium (Chloride) 250 mls @ 250 mls/hr IVPB DAILY [facility] PRN Reason: Protocol Last Admin: 07/22/17 10:22 Dose: 250 mls/hr Cefepime HCl 0.5 gm/ Sodium (Chloride) 50 mls @ 100 mls/hr IVPB Q12 [facility] PRN Reason: Protocol Last Admin: 07/22/17 09:43 Dose: 100 mls/hr Insulin Aspart (Novolog) 0 unit SC ACHS [facility] PRN Reason: Protocol Last Admin: 07/22/17 12:20 Dose: 12 unit Insulin Aspart (Novolog) 6 unit SC ACTID [facility] Last Admin: 07/22/17 12:19 Dose: 6 unit Insulin Glargine (Lantus) 30 unit SC Q12 [facility] Last Admin: 07/22/17 09:50 Dose: 30 units Montelukast Sodium (Singulair) 10 mg PO HS [facility] Last Admin: 07/21/17 21:47 Dose: 10 mg Prednisone (Prednisone Tab) 10 mg PO DAILY [facility] Last Admin: 07/22/17 09:49 Dose: 10 mg Rosuvastatin Calcium (Crestor) 5 mg PO HS [facility] Last Admin: 07/21/17 21:45 Dose: 5 mg Saccharomyces Boulardii (Florastor) 250 mg PO BID [facility] Last Admin: 07/22/17 09:49 Dose: 250 mg Fluticasone/Salmeterol (Advair Diskus 100/50) 1 puff INH RQ12 [facility] Last Admin: 07/22/17 08:29 Dose: 1 puff Vitamin B Complex/Vit C/Folic Acid (Nephro-Keith) 1 tab PO 0800 [facility] Last Admin: 07/22/17 08:29 Dose: 1 tab - Labs Labs: 07/22/17 07:36 07/22/17 07:36 APTT 40 SECONDS (21-34) H 07/15/17 07:14
--- NOTE | 2017-07-22 13:19 | RAD ---
Chest x-ray single frontal view History: Pneumonia. Comparison: 07/18/2017 Findings: Improved aeration in the right upper to mid lung zone with persistent linear increased consolidative changes. Improved but persistent patchy opacity at left lung base. Enlarged ectatic aorta. Status post median sternotomy. Cardiomegaly. Degenerative changes in the spine. Impression: Improved aeration in the right upper to mid lung zone with persistent linear increased consolidative changes. Improved but persistent patchy opacity at left lung base. Enlarged ectatic aorta. Status post median sternotomy. Cardiomegaly.
[2017-07-22 16:00] VITALS: BP 107/63; PULSE 71; TEMP 98.9; O2SAT 95
--- NOTE | 2017-07-25 15:57 | CARD ---
APPROVED REPORT EKG Measurement Heart [id number] <Conclusion> Normal sinus rhythm Nonspecific T wave abnormality Abnormal ECG
--- NOTE | 2017-07-28 13:22 | DS ---
The patient came to the hospital. The patient is at bedrest, supportive care. IV antibiotics. The patient showed slow, gradual improvement. The patient discharged, to be followed as outpatient. Ricky Peralta MD
== END 2017-07-22 17:34 | disposition home or self-care (01) | DRG 871 ==
LOC: C.ER 13:58 → C.9E 16:02 → C.3T 16:56 → C.9I 07-15 08:57 → C.3T 07-19 14:04
PROVIDERS: ADMIT Internal Medicine Pulmonary Disease; ATTEND Internal Medicine Pulmonary Disease
DX: A41.9 Sepsis, unspecified organism (principal); J18.9 Pneumonia, unspecified organism; N17.0 Acute kidney failure with tubular necrosis; N18.4 Chronic kidney disease, stage 4 (severe); N25.81 Secondary hyperparathyroidism of renal origin; E87.2 Acidosis; L80 Vitiligo; I77.6 Arteritis, unspecified; I25.10 Atherosclerotic heart disease of native coronary artery without angina pectoris; I12.9 Hypertensive chronic kidney disease with stage 1 through stage 4 chronic kidney disease, or unspecified chronic kidney disease; E87.5 Hyperkalemia; E83.51 Hypocalcemia; E83.42 Hypomagnesemia; E78.5 Hyperlipidemia, unspecified; E66.9 Obesity, unspecified; E61.1 Iron deficiency; E11.65 Type 2 diabetes mellitus with hyperglycemia; E11.22 Type 2 diabetes mellitus with diabetic chronic kidney disease; D69.6 Thrombocytopenia, unspecified; D64.9 Anemia, unspecified; Z79.4 Long term (current) use of insulin; Z87.891 Personal history of nicotine dependence; Z95.1 Presence of aortocoronary bypass graft; Z68.39 Body mass index [BMI] 39.0-39.9, adult